=== PATIENT | female | born 1965 | race African-American/Black ===

== ENCOUNTER 2022-02-09 07:44 | Outpatient (REF) | payer OTHER, SELFPAY ==
[2022-02-09 08:19] LABS: COVID-19 Test Negative (Negative)
== END 2022-02-09 07:45 | disposition home or self-care (01) ==
LOC: HO.LAB 07:44
PROVIDERS: Visit Provider Internal Medicine
DX: Z20.822 Contact with and (suspected) exposure to COVID-19 (principal)
CPT/HCPCS: 87635; C9803

== ENCOUNTER 2022-04-06 14:43 | Emergency (ER) | payer OTHER, SELFPAY ==
--- NOTE | ~2022-04-06 | XR_ITS ---
EXAMINATION: XR CHEST CLINICAL INFORMATION: Shortness of breath COMPARISON: None TECHNIQUE: PA view of the chest was obtained. FINDINGS: No significant abnormality is noted involving the heart, lungs, mediastinum, bony thorax or soft tissues. XR/XR chest 1V IMPRESSION: No acute disease.
[2022-04-06 14:46] VITALS: BP 144/79; PULSE 92; RESP 20; TEMP 36.3; O2SAT 96; BMI 45.6
--- OUTSIDE RECORDS SUMMARY | 2022-04-06 14:50 | XMS_ITS | Continuity of Care Document ---
:1965 Author Organization [facility] Adult Address [address] [place] [address]- Care Team Providers Name Role Phone Jf TALBERT, Dylan Leigh Primary Care Physician Encounter [facility] Date(s): 12/29/20 - 03/11/21 [facility] [address] [place] [phone]- Attending Physician: [facility] Allergies, Adverse Reactions, Alerts Substance Reaction Severity Status NKA Active Immunizations Given and Recorded Vaccine Date Status Refusal Reason SARS-CoV-2 (COVID-19) mRNA-1273 vaccine 07/12/20 Recorded SARS-CoV-2 (COVID-19) mRNA-1273 vaccine 06/14/20 Recorded influenza virus vaccine, inactivated 02/07/20 Recorded influenza virus vaccine, inactivated 04/27/19 Recorded influenza virus vaccine, inactivated 06/04/17 Recorded influenza virus vaccine, inactivated 05/19/15 Recorded influenza virus vaccine, inactivated 03/17/14 Recorded influenza virus vaccine, inactivated1 02/03/09 Given pneumococcal 13-valent vaccine 06/04/17 Recorded 1Admin Note: VIS12/13/08 Problem List Condition Effective Dates Status Health Status Informant Central obesity(Confirmed) Active Essential hypertension(Confirmed) Active Uterine leiomyoma(Confirmed)1 Active 1s/p hysterectomy Social History Social History Type Response Tobacco Use: 4 or less cigarettes(le ss than 1/4 pack)/day in last 30 days. Sex
--- OUTSIDE RECORDS SUMMARY | 2022-04-06 14:50 | XMS_ITS | Continuity of Care Document ---
:1965 Author Organization [facility] Adult Address [address] [place] [address]- Care Team Providers Name Role Phone Jf TALBERT, Dylan Leigh Primary Care Physician Encounter [facility] Date(s): 02/09/21 - 03/11/21 [facility] [address] [place] [phone]- Attending Physician: Mary Gomez Admitting Physician: Mary Gomez Referring Physician: Mary Gomez Allergies, Adverse Reactions, Alerts Substance Reaction Severity [...]
--- NOTE | 2022-04-06 14:53 | ED.GENADULT ---
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 She denies any measured fevers, dizziness, neck pain/stiffness, trouble swallowing or breathing, chest pain or shortness of breath, dyspnea on exertion, orthopnea, palpitations, paresthesias, nausea/vomiting/diarrhea constipation, black or bloody stools, abdominal pain, flank pain, dysuria, hematuria, abnormal vaginal discharge, lower extremity edema or calf tenderness, recent travel or any other symptoms complaints or concerns at this time. She does work here therefore she is exposed to multiple different viruses therefore she has been exposed to multiple sick contacts. Although she wears her mask while she is here. <VIPIN Paige - Last Filed: 04/06/22 16:23> complaint: URI symptoms <VIPIN Paige - Last Filed: 04/06/22 16:23> Onset (ago): day(s) (3) <VIPIN Paige Last Filed: 04/06/22 16:23> Related Data Home medications: Previous Rx's Medication Instructions Recorded albuterol sulfate 90 mcg/actuation 1 inh inhalation QID PRN shortness 04/06/22 aerosol inhaler of breath or wheezing #8.5 grams azithromycin 250 mg tablet See Rx Instructions PO .COMPLEX #6 04/06/22 tabs codeine 10 mg-guaifenesin 100 mg/5 5 ml PO Q6H PRN cold symptoms #120 04/06/22 mL oral liquid (Guaifenesin AC) mL doxycycline monohydrate 100 mg 100 mg PO BID 10 days #20 caps 04/06/22 capsule prednisone 20 mg tablet 40 mg PO DAILY 5 days #10 tabs 04/06/22 <Zulma Lewis NP - Last Filed: 04/06/22 14:54> Allergies/adverse reactions: Allergies Allergy/AdvReac Type Severity Reaction Status Date / Time No Known Allergies Allergy Verified 04/06/22 14:45 <Zulma Lewis NP - Last Filed: 04/06/22 14:54> Review of Systems Review of Systems: Constitutional : + subjective fevers/chills/fatigue/malaise/sweats, No Weight loss, ENT/Mouth : + sore throat/nasal congestion/rhinorrhea, No Hearing loss, No Ear Pain, No Sinus Pain, No Hoarseness, No Swallowing Difficulty Eyes: No Eye Pain, No Swelling, No Redness, No Foreign Body, No Discharge, No Vision Changes Cardiovascular : No Chest Pain, No SOB, No Dyspnea on Exertion, No Orthopnea, No Edema, No Palpitations Respiratory : + Cough, + Sputum, No Wheezing, No Smoke Exposure, No Dyspnea Gastrointestinal : No Nausea, No Vomiting, No Diarrhea, No Constipation, No abdominal Pain, No Hematochezia, No Melena Genitourinary : no irregular bleeding, No Dysuria, No Urinary Frequency, No Hematuria, No Urinary Incontinence, No Urgency, No Flank Pain, No Urinary Flow Changes, No Hesitancy Musculoskeletal : No joint pain, + Myalgias, No Joint Swelling Skin : No Skin Lesions, No rash Neuro : No Weakness, No Numbness, No Paresthesias, No Loss of Consciousness, No Dizziness, No Headache Psych : No Anxiety/Panic, No Depression, No SI/HI/AH/VH, No Social Issues, Heme/Lymph: No Bruising, No Bleeding,No Lymphadenopathy Endocrine : No Polyuria, No Polydipsia, No Temperature Intolerance <VIPIN Paige - Last Filed: 04/06/22 16:23> Yes all other systems are reviewed and are negative <VIPIN Paige - Last Filed: 04/06/22 16:23> [facility] Past Medical History Attestation statement: The following information was validated with the patient. <VIPIN Paige - Last Filed: 04/06/22 16:23> Source: old records reviewed and nursing notes reviewed <VIPIN Paige - Last Filed: 04/06/22 16:23> Social History Social History: Social History Advance Directives: No Advance Directives Information Provided: Yes <Zulma Lewis NP - Last Filed: 04/06/22 14:54> Physical Exam ED Vital Signs: Vital Signs - 24 hr 04/06/22 14:46 Temperature 97.3 F Pulse Rate 92 Respiratory Rate 20 Blood Pressure 144/79 H Pulse Oximetry 96 Oxygen Delivery Method Room Air BMI result Body Mass Index 45.6 <Zulma Lewis NP - Last Filed: 04/06/22 14:54> Vital Signs - 24 hr 04/06/22 14:46 Temperature 97.3 F Pulse Rate 92 Respiratory Rate 20 Blood Pressure 144/79 H Pulse Oximetry 96 Oxygen Delivery Method Room Air BMI result Body Mass Index 45.6 vital signs have been reviewed as normal and appeared to be correct. Blood pressure 144/79. Heart rate normal. Respiration rate normal. Temperature normal. Oxygen saturation normal. <VIPIN Paige - Last Filed: 04/06/22 16:23> Appearance: Alert. Oriented X3. No acute distress. Head: Normal external exam. Normocephalic. Atraumatic. Eyes: PERRLA. EOMI. Conjunctiva and sclera normal. Eyelids normal. ENT: EAC normal. TM's Normal. Posterior pharynx mildly erythematous although no exudate is noted. Uvula midline. Moist mucous membranes. No lesions/ulcerations or masses noted on the tongue. Normal voice. No trismus noted. No drooling noted. No muffled voice noted. Neck: Normal inspection. Neck supple. FROM. No adenopathy. Thyroid Normal. No tracheal deviation noted. No crepitus is noted. No meningeal signs. No neck mass noted. No signs of trauma noted. CVS: Normal heart rate and rhythm. Heart sound normal. Pulses normal throughout. No murmurs/rales/gallops. Respiratory: No respiratory distress. Painless inspiration. Breath sounds normal. No wheezes/rales/rhonchi noted. Chest nontender. No crepitus is noted. No signs of trauma noted. No accessory muscle usage noted or decreased air movement noted. No signs of trauma. Back: Full range of motion noted. Skin: Skin warm and dry. Normal skin color. Normal skin turgor. No rashes/lesions/lacerations noted. Extremities: No lower extremity edema. No calf tenderness is noted. Extremities exhibit normal range of motion and nontender. Neuro: Oriented X 3. No motor deficit. No sensory deficit. Normal steady gait. No focal neuro deficits noted. CN's II-XII intact bilaterally? <VIPIN Paige - Last Filed: 04/06/22 16:23> Course Course Course Narrative: This is a rapid medical exam. Deferred additional HPI, ROS, PE to primary provider. 56 yo female here with 2 days of cough, chest discomfort with coughing, diff breathing with recent exposure to family member with bronchitis. Will check CXR, covid/flu/rsv swab. VSS <Zulma Lewis NP - Last Filed: 04/06/22 14:54> Reevaluation(s) Reevaluation #1: Patient negative for COVID/RSV/flu. No additional labs indicated. Chest x-ray negative will DC home with symptomatic treatment antibiotics for possible bronchitis along with instructions return if any new or worsening symptoms to follow up with primary care provider. Patient understands agrees with this plan. <VIPIN Paige - Last Filed: 04/06/22 16:23> Time: 15:44 <VIPIN Paige - Last Filed: 04/06/22 16:23> Medications Administered Discontinued Medications Generic Name Dose Route Start Last Admin Trade Name Freq PRN Reason Stop Dose Admin Albuterol Sulfate 2 puff 04/06/22 15:47 04/06/22 15:56 Albuterol Sulfate 90 Mcg 8 Gm Inhaler INHALE 04/06/22 15:48 2 puff ONCE ONE Administration Benzonatate 100 mg 04/06/22 15:48 04/06/22 15:57 Benzonatate 100 Mg Capsule PO 04/06/22 15:49 100 mg ONCE ONE Administration Prednisone 60 mg 04/06/22 15:47 04/06/22 15:57 Prednisone 20 Mg Tablet PO 04/06/22 15:48 60 mg ONCE ONE Administration <Zulma Lewis NP - Last Filed: 04/06/22 14:54> Medications Administered Discontinued Medications Generic Name Dose Route Start Last Admin Trade Name Elan PRN Reason Stop Dose Admin Albuterol Sulfate 2 puff 04/06/22 15:47 04/06/22 15:56 Albuterol Sulfate 90 Mcg 8 Gm Inhaler INHALE 04/06/22 15:48 2 puff ONCE ONE Administration Benzonatate 100 mg 04/06/22 15:48 04/06/22 15:57 Benzonatate 100 Mg Capsule PO 04/06/22 15:49 100 mg ONCE ONE Administration Prednisone 60 mg 04/06/22 15:47 04/06/22 15:57 Prednisone 20 Mg Tablet PO 04/06/22 15:48 60 mg ONCE ONE Administration <VIPIN Paige - Last Filed: 04/06/22 16:23> Medical Decision Making Medical Records Medical records reviewed: Yes I reviewed the patient's medical records. <VIPIN Paige - Last Filed: 04/06/22 16:23> Lab Data Lab results reviewed: Yes I reviewed the patient's lab results. <VIPIN Paige - Last Filed: 04/06/22 16:23> Labs: Lab Results 04/06/22 Range/Units 14:53 Influenza Type A (PCR) NEGATIVE (Negative) Influenza Type B (PCR) NEGATIVE (Negative) RSV RNA Qual (PCR) NEGATIVE (Negative) SARS-CoV-2 RNA (RT-PCR) NEGATIVE (Negative) <Zulma Lewis NP - Last Filed: 04/06/22 14:54> Lab Results 04/06/22 Range/Units 14:53 Influenza Type A (PCR) NEGATIVE (Negative) Influenza Type B (PCR) NEGATIVE (Negative) RSV RNA Qual (PCR) NEGATIVE (Negative) SARS-CoV-2 RNA (RT-PCR) NEGATIVE (Negative) <VIPIN Paige - Last Filed: 04/06/22 16:23> Imaging Data Chest x-ray: Attestation: I personally reviewed and interpreted this imaging study as follows: <VIPIN Paige Last Filed: 04/06/22 16:23> Radiologist's impression: FINDINGS: No significant abnormality is noted involving the heart, lungs, mediastinum, bony thorax or soft tissues. XR/XR chest 1V IMPRESSION: No acute disease. <VIPIN Paige - Last Filed: 04/06/22 16:23> Discharge Plan Discharge Clinical Impression: Bronchitis <Zulma Lewis NP - Last Filed: 04/06/22 14:54> Patient Disposition: Home, Self-Care <Zulma Lewis NP - Last Filed: 04/06/22 14:54> Instructions: Acute Bronchitis (ED) <Zulma Lewis NP - Last Filed: 04/06/22 14:54> Prescriptions: New azithromycin 250 mg tablet See Rx Instructions .ROUTE .COMPLEX Qty: 6 0RF Rx Instructions: take 500 mg today (day 1), then 250 mg for 4 days (days 2-5) doxycycline monohydrate 100 mg capsule 100 mg PO BID 10 Days Qty: 20 0RF codeine-guaifenesin [Guaifenesin AC] 10-100 mg/5 mL liquid 5 ml PO Q6H PRN (Reason: cold symptoms) Qty: 120 0RF albuterol sulfate 90 mcg/actuation HFA aerosol inhaler 1 inh inhalation QID PRN (Reason: shortness of breath or wheezing) Qty: 8.5 0RF prednisone 20 mg tablet 40 mg PO DAILY 5 Days Qty: 10 0RF <Zulma Lewis NP - Last Filed: 04/06/22 14:54> Referrals: Physician,Unknown J [Primary Care Provider] - 3 days (your pcp) <Zulma Lewis NP - Last Filed: 04/06/22 14:54> Stand Alone Forms: Work/School Release <Zulma Lewis NP - Last Filed: 04/06/22 14:54> Interventions: ED Discharge Assessment Last Done: 04/06/22 16:04 <Zulma Lewis NP - Last Filed: 04/06/22 14:54> Discharge Date/Time: 04/06/22 16:04 <Zulma Lewis NP - Last Filed: 04/06/22 14:54>
[2022-04-06 15:33] LABS: Influenza A PCR NEGATIVE (Negative); Influenza B PCR NEGATIVE (Negative); Resp Syncy Virus RNA Qual PCR NEGATIVE (Negative); SARS COV2 PCR INHOUSE NEGATIVE (Negative)
[2022-04-06] MEDS: Albuterol Sulfate 90 MCG 8 GM INHALER 2 PUFF INHALE (15:56)
[2022-04-06] MEDS: Benzonatate 100 MG CAPSULE PO (15:57)
[2022-04-06] MEDS: predniSONE 20 MG TABLET 60 MG PO (15:57)
== END 2022-04-06 16:04 | disposition home or self-care (01) ==
PROVIDERS: Emergency Provider Emergency Medicine
DX: J40 Bronchitis, not specified as acute or chronic (principal); Z20.822 Contact with and (suspected) exposure to COVID-19
CPT/HCPCS: 0241U; 71045; 99282; 99283

== ENCOUNTER → 2022-04-18 11:55 | Outpatient (BNVA) | payer OTHER, SELFPAY | PROVIDERS: Visit Provider Internal Medicine | DX: Z13.89 Encounter for screening for other disorder (principal) | CPT/HCPCS: 99203 ==

== ENCOUNTER 2022-06-05 09:41 | Outpatient (REF) | payer OTHER, SELFPAY ==
--- NOTE | ~2022-06-05 | MM_ITS ---
EXAMINATION: MM SCREENING DIGITAL BREAST TOMOSYNTHESIS, BILATERAL CLINICAL INFORMATION: Screening. Asymptomatic. History of breast reduction surgery. The lifetime risk of breast cancer based on the Tyrer-Cuzick Model is 9.3%. COMPARISON: Mammography: 07/12/2013 and 04/13/2011. TECHNIQUE: Digital breast tomosynthesis is performed in both the craniocaudal and mediolateral oblique views along with computer-aided detection (CAD). Synthesized 2D images are generated from the tomosynthesis. FINDINGS: The breasts are almost entirely fatty (ACR BI-RADS breast composition Category a). Patient is status post bilateral reduction mammoplasty with associated postsurgical change. There is multiplicity and bilaterality of skin calcifications. No new abnormal dominant mass or suspicious grouping of microcalcifications identified. MM/MM tomosynthesis screening BI IMPRESSION: No mammographic evidence of malignancy. ASSESSMENT: BI-RADS 2: Benign. RECOMMENDATION: Routine annual mammography screening. This patient's information was entered into a reminder system with a target due date for their next mammogram.
[2022-06-05 09:51] LABS: MANUAL DIFF FLAG NO
[2022-06-05 10:02] LABS: Basophils Percent Auto 0.3 % (0-2); Eosinophils Absolute Auto 0.2 X10*3/uL (0.0-0.4); Eosinophils Percent Auto 2.4 % (0-4); Hematocrit 40.3 % (37.0-47.0); Hemoglobin 12.9 g/dl (12.0-16.0); Imm Gran Abs Auto 0.02 X10*3/uL (0.00-0.03); Imm Gran Pct Auto 0.2 % (0.0-0.4); Lymphocytes Absolute Auto 2.8 X10*3/uL (1.2-4.9); Lymphocytes Percent Auto 31.7 % (20-40); Mean Corpuscular Hemoglobin 29.9 pg (27.0-33.0); Mean Corpuscular Volume 93.3 fL (80.0-98.0); Mean Platelet Volume 9.4 fL (9.4-12.3); Monocytes Absolute Auto 0.5 X10*3/uL (0.1-1.2); Monocytes Percent Auto 5.2 % (2-11); Neutrophils Absolute Auto 5.3 x10*3/uL (2.0-8.3); Neutrophils Percent Auto 60.2 % (45-73); Platelet Count 259 X10*3/uL (160-400); Red Blood Count 4.32 X10*6/uL (4.20-5.50); Red Cell Distribution Width 13.4 % (11.0-16.0); White Blood Count 8.8 X10*3/uL (4.8-10.8)
[2022-06-05 10:38] LABS: Alanine Aminotransferase 17 U/L (0-31); Albumin Level 4.4 g/dL (3.5-5.0); Alkaline Phosphatase 59 U/L (39-117); Anion Gap 12 (12-20); Aspartate Amino Transferase 16 U/L (5-31); Bilirubin Total 0.7 mg/dL (0.0-1.0); Blood Urea Nitrogen 21 mg/dL (9-16); Calcium 9.4 mg/dL (8.4-10.2); Carbon Dioxide 27 mmol/L (22-29); Chloride 107 mmol/L (96-108); Cholesterol 209 mg/dL; Estimated Glomerular Filt Rate > 60; Glucose Fasting 146 mg/dL (60-99); HDL Cholesterol 46 mg/dL; LDL Cholesterol Calculated 148 mg/dl; Sodium 142 mmol/L (135-145); Total Protein 7.2 g/dL (6.5-8.0); Triglycerides 79 mg/dL
[2022-06-05 10:45] LABS: ~Hepatitis C Antibody Nonreactive (Nonreactive)
[2022-06-05 10:55] LABS: Thyroid Stimulating Hormone 0.75 uIU/mL (0.32-4.0)
[2022-06-12 15:28] LABS: Hepatitis C Genotype Not Detected
== END 2022-06-05 09:42 | disposition home or self-care (01) ==
LOC: HO.MAMMO 09:41
PROVIDERS: PCP Internal Medicine; Visit Provider Internal Medicine
DX: E66.01 Morbid (severe) obesity due to excess calories (principal); I10 Essential (primary) hypertension; B19.20 Unspecified viral hepatitis C without hepatic coma; Z68.41 Body mass index [BMI] 40.0-44.9, adult; Z12.31 Encounter for screening mammogram for malignant neoplasm of breast
CPT/HCPCS: 36415; 77063; 77067; 80053; 80061; 84443; 85025; 86803; 87902

== ENCOUNTER 2022-07-26 15:54 | Outpatient (REF) | payer OTHER, SELFPAY ==
[2022-07-26 18:06] LABS: Estimated Average Glucose 154 mg/dL
[2022-07-26 18:34] LABS: Cholesterol 203 mg/dL; HDL Cholesterol 50 mg/dL; LDL Cholesterol Calculated 128 mg/dl; Rheumatoid Factor < 13.0 IU/mL (<15.0); Triglycerides 126 mg/dL
[2022-07-27 16:45] LABS: CT PCR NOT DETECTED (Not Detect.); NG PCR NOT DETECTED (Not Detect.)
[2022-07-29 03:48] LABS: Syphilis Screen Nonreactive (Nonreactive)
[2022-07-29 04:11] LABS: HBS Num1 28.31 mIU/mL (0-7.99); HBc Num1 0.08 S/CO (0.00-0.79); HBsAGNum1 0.35 S/CO (0.00-0.99); HIV AB/AG Nonreactive (Nonreactive); HIV Num 1 0.08 S/CO (0.00-0.99); Hepatitis B Core Antibody Nonreactive (Nonreactive); Hepatitis B Surface Antigen Negative (Negative); ~HepC Num1 0.11 S/CO (0.00-0.79); ~Hepatitis B Surface Antibody REACTIVE (Nonreactive); ~Hepatitis C Antibody Nonreactive (Nonreactive)
[2022-07-30 13:44] LABS: Anti Nuclear Antibody Pattern Nuclear, Speckled; Anti Nuclear Antibody Screen POSITIVE (NEGATIVE)
[2022-07-31 21:14] LABS: HSV 1 IgM IFA Negative (Negative); HSV 2 IgM IFA Negative (Negative)
== END 2022-07-26 15:55 | disposition home or self-care (01) ==
LOC: HO.LAB 15:54
PROVIDERS: PCP Internal Medicine; Visit Provider Nurse Practitioner Family
DX: Z11.4 Encounter for screening for human immunodeficiency virus [HIV] (principal); M79.644 Pain in right finger(s); M79.645 Pain in left finger(s); R73.01 Impaired fasting glucose; E78.5 Hyperlipidemia, unspecified; Z20.2 Contact with and (suspected) exposure to infections with a predominantly sexual mode of transmission
CPT/HCPCS: 0353U; 80061; 83036; 86038; 86039; 86431; 86695; 86696; 86704; 86706; 86780; 86803; 87340; 87389

== ENCOUNTER → 2022-07-31 15:50 | Outpatient (BNVA) | payer OTHER, SELFPAY | PROVIDERS: PCP Internal Medicine; Visit Provider Nurse Practitioner Family | DX: Z13.89 Encounter for screening for other disorder (principal) ==

== ENCOUNTER 2022-08-04 18:05 | Emergency (ER) | payer OTHER, SELFPAY ==
[2022-08-04 18:10] VITALS: BP 158/78; PULSE 98; RESP 18; TEMP 36.9; O2SAT 97; BMI 44.4
--- NOTE | 2022-08-04 18:17 | ED_ITS ---
HPI - SOB/Dyspnea General Chief Complaint: Dyspnea <VIPIN Galvan - Last Filed: 08/04/22 18:18> Stated Complaint: shortness of breath, covid swab <VIPIN Galvan - Last Filed: 08/04/22 18:18> Time Seen by Provider: 08/04/22 19:32 <VIPIN Galvan - Last Filed: 08/04/22 18:18> Source: patient <Kyleigh Barbosa NP - Last Filed: 08/05/22 00:17> Mode of arrival: ambulatory <Kyleigh Barbosa NP - Last Filed: 08/05/22 00:17> Limitations: no limitations <Kyleigh Barbosa NP - Last Filed: 08/05/22 00:17> History of Present Illness HPI Narrative: 57-year-old female presents for worsening shortness of breath, body aches, and cough. Was treated with prednisone however did not start taking it until 2 days ago. <Kyleigh Barbosa NP - Last Filed: 08/05/22 00:17> MD elicited complaint: shortness of breath and cough <Kyleigh Barbosa NP - Last Filed: 08/05/22 00:17> Pertinent past history: asthma <Kyleigh Barbosa NP - Last Filed: 08/05/22 00:17> Onset (ago): week(s) (1) <Kyleigh Barbosa NP - Last Filed: 08/05/22 00:17> Context: recent illness <Kyleigh Barbosa NP - Last Filed: 08/05/22 00:17> Timing: progressively worsening <Kyleigh Barbosa NP - Last Filed: 08/05/22 00:17> Severity: moderate <Kyleigh Barbosa NP - Last Filed: 08/05/22 00:17> Exacerbating factors: exertion, coughing and talking <Kyleigh Barbosa NP - Last Filed: 08/05/22 00:17> Relieving factors: bronchodilators <Kyleigh Barbosa NP - Last Filed: 08/05/22 00:17> Known history of: asthma <Kyleigh Barbosa NP - Last Filed: 08/05/22 00:17> Associated symptoms: cough, wheezing and lower extremity pain <ANEUDY Medina Last Filed: 08/05/22 00:17> Treatment prior to arrival: bronchodilator and other (Prednisone) <ANEUDY Medina Last Filed: 08/05/22 00:17> Related Data Home oxygen amount: none <ANEUDY Medina Last Filed: 08/05/22 00:17> Home Medications: Previous Rx's Medication Instructions Recorded albuterol sulfate 90 mcg/actuation 1 inh inhalation QID PRN shortness 04/06/22 aerosol inhaler of breath or wheezing #8.5 grams hydrochlorothiazide 12.5 mg tablet 12.5 mg PO DAILY 90 days #90 tabs 07/02/22 prednisone 20 mg tablet 40 mg PO DAILY 5 days #10 tabs 07/26/22 bisacodyl 5 mg tablet,delayed 10 mg PO ONCE 1 day #2 tabs 07/31/22 release (Dulcolax (bisacodyl)) polyethylene glycol 3350 17 238 g PO ONCE #238 grams 07/31/22 gram/dose oral powder (Miralax) benzonatate 100 mg capsule 100 mg PO TID PRN cough #30 caps 08/04/22 <VIPIN Galvan Last Filed: 08/04/22 18:18> Allergies/Adverse Reactions: Allergies Allergy/AdvReac Type Severity Reaction Status Date / Time lisinopril AdvReac Intermediate Cough Uncoded 07/31/22 15:55 <VIPIN Galvan Last Filed: 08/04/22 18:18> Review of Systems Review of Systems: Constitutional: No Fever, No Chills, positive myalgias ENT/Mouth: No Ear Pain, positive Hoarseness, positive sore throat Eyes: No Eye Pain, No Swelling, No Redness, No Foreign Body Cardiovascular: No Chest Pain, positive SOB on exertion and while coughing Respiratory: Positive Cough, positive wheezing, No Dyspnea Gastrointestinal: No Nausea, No Vomiting, No Diarrhea, No abdominal Pain Genitourinary: No Dysuria, No Hematuria Musculoskeletal: No joint pain, positive Myalgias, No Joint Swelling Skin: No Skin lacerations, No rash Neuro: No Weakness, No Numbness, No Paresthesias, No Dizziness, No Headache <Kyleigh Barbosa NP - Last Filed: 08/05/22 00:17> Yes all other systems are reviewed and are negative <Kyleigh Barbosa NP - Last Filed: 08/05/22 00:17> PMFSH Past Medical History Attestation statement: The following information was validated with the patient. <Kyleigh Barbosa NP - Last Filed: 08/05/22 00:17> Source: old records reviewed <Kyleigh Barbosa NP - Last Filed: 08/05/22 00:17> Medical History: Medical History Family history of colorectal cancer Family history of gastric cancer Hepatitis C <VIPIN Galvan - Last Filed: 08/04/22 18:18> Surgical History: Surgical History History of History of carpal tunnel surgery History of clubfoot correction Status post breast reduction Status post hysterectomy <VIPIN Galvan - Last Filed: 08/04/22 18:18> Family History Family History: Family History Mother Diabetes CHF (congestive heart failure) Stroke Father Colon cancer Stroke Family/Other Substance use disorder Cancer <VIPIN Galvan - Last Filed: 08/04/22 18:18> Social History Social History: Social History Housing: House Alcohol intake: current Alcohol intake frequency: holidays/special occasions only Alcohol type: beer Patient Tobacco Use Status: Former Tobacco user Tobacco use type: Cigarette e-Cigarette/Vaping Use: Never Used Second Hand Smoke Exposure: No Advance Directives: No Advance Directives Information Provided: No service: No Current occupational status: employed Current occupational exposures/hazards: No Cognitive needs: No Hearing needs: No Vision needs: Yes <VIPIN Galvan - Last Filed: 08/04/22 18:18> Physical Exam Vital Signs: Vital Signs: Last Vital Signs Temp 98.5 F 08/04/22 18:10 Pulse 98 08/04/22 18:10 Resp 18 08/04/22 18:10 BP 158/78 H 08/04/22 18:10 Pulse Ox 97 08/04/22 18:10 O2 Del Method Room Air 08/04/22 18:10 BMI result Body Mass Index 44.4 <VIPIN Galvan - Last Filed: 08/04/22 18:18> Vital Signs: Last Vital Signs Temp 98.5 F 08/04/22 18:10 Pulse 98 08/04/22 18:10 Resp 18 08/04/22 18:10 BP 158/78 H 08/04/22 18:10 Pulse Ox 97 08/04/22 18:10 O2 Del Method Room Air 08/04/22 18:10 BMI result Body Mass Index 44.4 <Kyleigh Barbosa NP - Last Filed: 08/05/22 00:17> Appearance: Alert. Oriented X3. No acute distress. Eyes: Pupils equal, round and reactive to light. ENT: Pharynx normal. Hoarse voice noted. Neck: Normal inspection. Neck supple. No vertebral tenderness or step-offs. No nuchal rigidity. No mastoid tenderness. CVS: Normal heart rate and rhythm. Pulses normal. Respiratory: No respiratory distress. Lung sounds clear to auscultation all lobes. Skin: Skin warm and dry. Normal skin color. Normal skin turgor. Extremities: No lower extremity edema. Gait well balanced well coordinated Neuro: No motor deficit. No sensory deficit. Cranial nerves 2-12 intact. <Kyleigh Barbosa NP - Last Filed: 08/05/22 00:17> Course Course Course Narrative: This is an RME: Additional HPI, ROS, PE not included below will be deferred to primary provider. 57-year-old female presents with malaise, fatigue, body aches and pains, shortness of breath, hoarse voice times few weeks she reports she was COVID positive about a month ago and her PCP thinks this may be post COVID syndrome, PCP prescribed prednisone on the however patient just filled yesterday and started it. Reports worsening symptoms. Physical exam benign. Vital stable. Plan viral testing <VIPIN Galvan - Last Filed: 08/04/22 18:18> This is an RME: Additional HPI, ROS, PE not included below will be deferred to primary provider. 57-year-old female presents with malaise, fatigue, body aches and pains, shortness of breath, hoarse voice times few weeks she reports she was COVID positive about a month ago and her PCP thinks this may be post COVID syndrome, PCP prescribed prednisone on the however patient just filled yesterday and started it. Reports worsening symptoms. Physical exam benign. Vital stable. Plan viral testing 19:30 viral testing is negative. Patient did state that she started taking her prednisone yesterday was this script about a week ago. At that time, patient did not feel ill enough to take the medication however today her symptoms have worsened. She is able to speak in complete sentences, able to manage secretions, and does have a hoarse voice but appears nontoxic, afebrile, with elevated blood pressure and heart rate. Patient does have a history of hypertension, also has taken prednisone as well as albuterol inhalers. Considering patient's upper respiratory viral syndrome as well as albuterol use, this could be the reason her heart rate is 98. Do not feel that this patient has any indication for PE, as patient does not have the chest pain on inspiration, is not hypoxic, and does not have a heart rate over 100. Plan of care is to continue supportive measures, have patient follow-up with primary and work connection this week, will give Tessalon Perles, and a work note. Considering patient has concerns regarding long haul COVID symptoms, as well as asthma, I do agree with patient's request of possible pulmonary rehab. I will refer to civil engineering drafter Dr. Dejesus. patient verbalized understanding of and agrees to plan of care discharge home. Verbalized understanding of signs and symptoms indicating need for emergent intervention. <Kyleigh Barbosa NP - Last Filed: 08/05/22 00:17> Medical Decision Making Differential Diagnosis Differential Diagnoses: The differential diagnosis associated with the presentation includes <Kyleigh Barbosa NP - Last Filed: 08/05/22 00:17> URI, COVID, influenza, RSV, pneumonia <Kyleigh Barbosa NP - Last Filed: 08/05/22 00:17> Lab Data MDM Lab Attestation statement: I reviewed the patient's lab results. <Kyleigh Barbosa NP - Last Filed: 08/05/22 00:17> Labs: Lab Results 08/04/22 Range/Units 18:17 Influenza Type A (PCR) NEGATIVE (Negative) Influenza Type B (PCR) NEGATIVE (Negative) RSV RNA Qual (PCR) NEGATIVE (Negative) SARS-CoV-2 RNA (RT-PCR) NEGATIVE (Negative) <VIPIN Galvan - Last Filed: 08/04/22 18:18> Lab Results 08/04/22 Range/Units 18:17 Influenza Type A (PCR) NEGATIVE (Negative) Influenza Type B (PCR) NEGATIVE (Negative) RSV RNA Qual (PCR) NEGATIVE (Negative) SARS-CoV-2 RNA (RT-PCR) NEGATIVE (Negative) <Kyleigh Barbosa NP - Last Filed: 08/05/22 00:17> External Record Review External record reviewed: Outpatient record and Prior outpatient labs <Kyleigh Barbosa NP - Last Filed: 08/05/22 00:17> Chronic Conditions Patient?s care impacted by: Hypertension <Kyleigh Barbosa NP - Last Filed: 08/05/22 00:17> Discharge Plan Discharge Clinical Impression: URI (upper respiratory infection) <VIPIN Galvan - Last Filed: 08/04/22 18:18> Patient Disposition: Home, Self-Care <VIPIN Galvan - Last Filed: 08/04/22 18:18> Instructions: Viral Syndrome (ED) <VIPIN Galvan - Last Filed: 08/04/22 18:18> Additional Instructions: You were evaluated for upper respiratory symptoms. Continue to take her prednisone as directed. Use albuterol inhaler 2-4 puffs every 4-6 hours as needed during this upper respiratory symptom. If your symptoms worsen, and you require albuterol sooner than every 4 hours, please present to the emergency department for evaluation. Take Tessalon Perles every 8 hours as needed for cough. Drink plenty of fluids. You may consider following up with pulmonology. I have referred you to Dr. Dejesus. Please call and request an appointment for evaluation for asthma as well as symptoms a long-haul COVID. Alternate Tylenol 650 mg every 6 hours and Motrin 600 mg every 6 hours as needed for pain and fever management. Consider taking these medications 3 hours apart so you have pain and fever management every 3 hours. Write down what time you take these medications to prevent accidental overdose. Motrin is the same medication as Advil and ibuprofen. Tylenol is the same medication as acetaminophen. Thank you for choosing this emergency department for evaluation. Please follow-up with primary care physician as needed. Return to the emergency department for any new, concerning, or worsening symptoms. <VIPIN Galvan - Last Filed: 08/04/22 18:18> Prescriptions: New benzonatate 100 mg capsule 100 mg PO TID PRN (Reason: cough) Qty: 30 0RF No Action hydrochlorothiazide 12.5 mg tablet 12.5 mg PO DAILY 90 Days Qty: 90 1RF albuterol sulfate 90 mcg/actuation HFA aerosol inhaler 1 inh inhalation QID PRN (Reason: shortness of breath or wheezing) Qty: 8.5 0RF prednisone 20 mg tablet 40 mg PO DAILY 5 Days Qty: 10 0RF bisacodyl [Dulcolax (bisacodyl)] 5 mg tablet,delayed release (DR/EC) 10 mg PO ONCE 1 Days Qty: 2 0RF Rx Instructions: take 2 tabs at noon the day before your colonoscopy polyethylene glycol 3350 [Miralax] 17 gram/dose powder 238 g PO ONCE Qty: 238 0RF Rx Instructions: As directed by gastroenterology department at [facility] <VIPIN Galvan - Last Filed: 08/04/22 18:18> Referrals: Ernie Dejesus MD [Physician] - 2 weeks (Asthma, long haul COVID symptoms) <VIPIN Galvan - Last Filed: 08/04/22 18:18> Stand Alone Forms: Work/School Release <VIPIN Galvan - Last Filed: 08/04/22 18:18> Interventions: ED Discharge Assessment Last Done: 08/04/22 20:33 <VIPIN Galvan - Last Filed: 08/04/22 18:18> Discharge Date/Time: 08/04/22 20:38 <VIPIN Galvan Last Filed: 08/04/22 18:18>
[2022-08-04 19:01] LABS: Influenza A PCR NEGATIVE (Negative); Influenza B PCR NEGATIVE (Negative); Resp Syncy Virus RNA Qual PCR NEGATIVE (Negative); SARS COV2 PCR INHOUSE NEGATIVE (Negative)
== END 2022-08-04 20:38 | disposition home or self-care (01) ==
PROVIDERS: Emergency Provider Emergency Medicine Emergency Medical Services; PCP Internal Medicine
DX: J06.9 Acute upper respiratory infection, unspecified (principal); R06.02 Shortness of breath; R05.9 Cough, unspecified; Z20.822 Contact with and (suspected) exposure to COVID-19; Z20.828 Contact with and (suspected) exposure to other viral communicable diseases
CPT/HCPCS: 0241U; 99283

== ENCOUNTER 2022-08-21 13:37 | Outpatient (REF) | payer OTHER, SELFPAY ==
--- NOTE | ~2022-08-21 | XR_ITS ---
EXAMINATION: Bilateral hand x-ray CLINICAL INFORMATION: Pain COMPARISON: None. TECHNIQUE: 3 views of each hand FINDINGS: Right: Bone alignment is normal. No fracture or dislocation. Normal joint spaces. Normal soft tissues. Left: Bone alignment is normal. No fracture or dislocation. 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 Joint spaces are otherwise normal. Soft tissues are normal. XR/XR hand RT 2V IMPRESSION: Right: Unremarkable exam Left: Osteoarthritis at the DIP joints.
--- NOTE | ~2022-08-21 | XR_ITS ---
EXAMINATION: XR CHEST CLINICAL INFORMATION: Cough COMPARISON: Previous chest x-ray April 2022 TECHNIQUE: 2 views of the chest were obtained. FINDINGS: The cardiac and mediastinal contours are normal. The lungs are clear. No pleural effusion or pneumothorax. Degenerative changes of the spine. XR/XR chest 2V IMPRESSION: No evidence for acute disease in the chest.
--- NOTE | ~2022-08-21 | XR_ITS ---
EXAMINATION: Bilateral hand x-ray CLINICAL INFORMATION: Pain COMPARISON: None. TECHNIQUE: 3 views of each hand FINDINGS: Right: Bone alignment is normal. No fracture or dislocation. Normal joint spaces. Normal soft tissues. Left: Bone alignment is normal. No fracture or dislocation. 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 Joint spaces are otherwise normal. Soft tissues are normal. XR/XR hand LT 2V IMPRESSION: Right: Unremarkable exam Left: Osteoarthritis at the DIP joints.
--- NOTE | ~2022-08-21 | XR_ITS ---
EXAMINATION: XR LUMBOSACRAL SPINE CLINICAL INFORMATION: Low back pain COMPARISON: None available. TECHNIQUE: Three views of the lumbosacral spine. FINDINGS: There is mild 4 mm anterior subluxation of L4 forward respect L5. Bone alignment is otherwise normal. No fracture or dislocation. Disc spaces are normal. There is lower lumbar spine facet arthritis. XR/XR lumbar spine 2-3V IMPRESSION: Mild anterior subluxation of L4 with respect L5 and lower lumbar spine facet arthritis.
== END 2022-08-21 13:38 | disposition home or self-care (01) ==
LOC: HO.XRAY 13:37
PROVIDERS: PCP Internal Medicine; Visit Provider Internal Medicine
DX: M54.50 Low back pain, unspecified (principal); R05.9 Cough, unspecified; M79.642 Pain in left hand; M79.641 Pain in right hand
CPT/HCPCS: 71046; 72100; 73120

== ENCOUNTER → 2022-08-21 15:03 | Outpatient (BNVA) | payer OTHER, SELFPAY | PROVIDERS: PCP Internal Medicine; Visit Provider Physician Assistant Medical | DX: Z13.89 Encounter for screening for other disorder (principal) | CPT/HCPCS: 99203 ==

== ENCOUNTER → 2022-10-07 14:37 | Outpatient (BNVA) | payer OTHER, SELFPAY | PROVIDERS: PCP Internal Medicine; Visit Provider Hospitalist ==

== ENCOUNTER → 2022-11-01 13:04 | Outpatient (BNVA) | payer OTHER, SELFPAY | PROVIDERS: PCP Internal Medicine; Visit Provider Physician Assistant Surgical ==

== ENCOUNTER 2022-12-03 15:37 | Outpatient (AMB) | payer OTHER, SELFPAY ==
--- NOTE | 2022-12-03 15:40 | MHC.OFFVISWM ---
Intake VS Expanded 12/03/22 15:45 Height 5 ft 5 in Weight 269 lb 3.2 oz BMI 44.8 BP 138/69 Blood Pressure Location Rt brachial Blood Pressure Position Sitting Pulse 98 Pulse Source Pulse Oximeter Temp 98.7 F Temperature Source Temporal Artery Scan Pulse Oximetry 97 Oxygen Delivery Method Room Air Body Fat 110.2 Body Fat Percentage 41.0 Free Fat Mass 159.0 Muscle Mass 151.0 Visceral Mass 14.0 Water Mass 113.0 BMR 2,207 Intake Visit Reasons: (OV) [employer] SWL BMI 44.2 Upper Extremity Surgeon Required: No Allergies lisinopril Adverse Reaction (Intermediate, Uncoded 10/07/22 14:58) Cough Medication List - Last Reconciled 12/03/22 by VIPIN Hinkle albuterol sulfate 90 mcg/actuation 1 inh inhalation QID PRN blood sugar diagnostic (FreeStyle Lite Strips) Use 1 test strip once a day blood-glucose meter (FreeStyle Lite Meter kit) As directed hydrochlorothiazide 25 mg PO DAILY 90 days lancets (FreeStyle Lancets) Use 1 lancet once a day HPI HPI Comments History of Present Illness Details Pt is here to start the [facility] [place] [facility] [place]. She heard about our program as she works at [facility] [place] Her goal is to lose weight and achieve a healthy lifestyle as well as to improve, if not resolve, obesity related medical conditions, including DM, HTN, HLD. She reports first being concerned about her weight 24 years ago, highest weight to date was 269. Current weight is 269.2 pounds with a BMI of 44.8. She has tried multiple methods of weight loss including fad diets without permanent results. She lives with her daughter. 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 She states she has been living with her daughter in her daughter's apartment but that is being renovated and they are both in a local hotel at this time. She states she is able to not only participate in the SWL program but excel. She wakes at:?530 am, and goes to bed at?10 pm. Dinner is at 7 pm. 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 Surgical History History of bilateral breast reduction surgery History of History of carpal tunnel surgery History of clubfoot correction History of hysterectomy Family History Mother Diabetes CHF (congestive heart failure) Stroke Father Colon cancer Stroke Family/Other Substance use disorder Cancer Social History Household Members: Children Housing: House Alcohol intake: current Alcohol intake frequency: holidays/special occasions only Alcohol type: beer Patient Tobacco Use Status: Former Tobacco user Tobacco use type: Cigarette e-Cigarette/Vaping Use: Never Used Second Hand Smoke Exposure: No service: No Current occupational status: employed Current occupational exposures/hazards: No Cognitive needs: No Hearing needs: No Vision needs: Yes Review of Systems Const All systems reviewed & are unremarkable except as noted in HPI and below Physical Exam Vital Signs: Last Vital Signs Temp 98.7 F 12/03/22 15:45 Pulse 98 12/03/22 15:45 BP 138/69 12/03/22 15:45 Pulse Ox 97 12/03/22 15:45 Oxygen Delivery Method Room Air 12/03/22 15:45 BMI result Body Mass Index 44.8 Const General: cooperative, healthy appearing and no acute distress Orientation/consciousness: patient oriented x3 HEENT Head: Yes normal to inspection Ears: hearing grossly normal bilaterally General nose exam: Normal external nose present Face and sinus: Yes normal facial exam Eyes General: appearance normal, both eyes and all related structures Resp Effort & Inspection: normal respiratory effort Cardio Rate: regular rate Rhythm: regular rhythm GI Inspection: Yes normal to inspection, No distended and Yes obesity Skin General skin exam: no rashes or lesions noted Neuro General: patient oriented x3 Extrem General: No edema Psych Appearance: grossly normal Mental Status: mental status grossly normal Speech and movement: Normal speech and movement present Affect: normal affect Attitude: cooperative Assessment & Plan Assessment & Plan (1) Morbid obesity: Code(s): E66.01 - Morbid (severe) obesity due to excess calories Plan: This is a?57 yo female who will start our SWL program to prepare for bariatric surgery.? Blood work, h pylori , CXR, ECG, Abd US and UGI have been ordered. She is being scheduled for RD and BH initial consultations. She will start SWL classes and watch the first three videos before her next appointment. ? Adequate sleep of 7-8 hours per night discussedawakening at 530 am and going to bed at 10 pm ? Purchase body composition analyzer scale (David cohn or Daxa recommended) and check weight weekly. The best time to do this is first thing in the morning after going to the bathroom. 1. Nutritional counseling: Be sure to careful read the number of scoops per shake Start with 1 Premier Protein shake ([employer], [employer], [facility]), (1 scoop in 8 oz low fat unsweetened almond milk or water) at 630am-830am 1 protein bar (Fulfil bars at [employer], [facility], or [employer]) at 1030am-1230pm. Another Protein bar at 130 pm-330 pm Malay yogurt at 430 pm-530 pm Dinner at 7pm (9 forks of protein and 9 forks of salad/vegetables). Meal to include lean meat (beef, fish, pork, turkey, chicken), cooked vegetables or a salad with olive oil and/or fruits (berries, pears, apples, kiwi). Avoid salt, breads, potatoes, rice, pasta, desserts. Another shake with 1 scoop in 8 oz unsweetened almond milk at 8pm-10pm. Try to drink 64 oz of water daily and avoid soda and juices. ?2. Each shake would be drunk slowly, like coffee in a period of 2 hours. ?3. Cut each bar in 4 pieces and eat each piece in 30 min ?to make each bar last 2 hours. ?4. I emphasized the importance of measuring accurately the food portion and measure it carefully when serving the food on the plate ?5. The meal portions include 9 full-size forks of meat and 9 full-size forks of salad. You always eat the meat portion but you can replace up to half of the forks of salad/vegetables with rice, potatoes or pasta, or a fruit ?if you like. The less you do it the better weight loss will be. ?6. One full-size fork is what can be scooped on the fork without falling aside and not what can be bit with the fork. Use regular forks like those you find in a typical restaurant. ?7.? Please send me weight measurements as soon as possible and then once a week. Always include your diet and exercise plan. Alternatively come weekly at the office for weight checks and send me the measurements. ?8. Exercise counseling: Begin by watching a stretching for beginners video. Start slowly and begin to stretch your muscles. You should do this before and after each exercise session to prevent injury. Please join [facility] gym near your home. Ask the build and release manager or one of the trainers how to use the machines if you are unfamiliar with them. Start elliptical with a resistance of 2. Increase resistance by 1 every 3 min to your most comfortable resistance with a max resistance of 8. Reduce the resistance by 1 every 3 minutes back down to 2 and repeat cycles for 300 calories. Alternatively, start treadmill with a speed of 3.0 and incline of 0, increasing incline by 1 every 3 minutes to the highest comfortable level (max 6 for now) then decrease in the same fashion. Repeat process to a goal of 300 calories. Goal of 2000 calories burned or more weekly. You may also consider use of the stationary bike. The easiest would be to chose the fat-burn or interval training program on the machine and do this until you reach the 300 calorie goal. Alternatively, you can manually adjust the resistance in a similar fashion as mentioned above, (resistance of 2-8 with a goal speed of 12 mph). Tracking calories is essential. 9. Alternatively start walking outside daily, tracking calories with a goal of 300 calories per day, daily. You can download the len [employer] which can track your time, distance and calories while walking outside. You press start in the len when you start and then stop when you are finished. 10.? It is important to communicate with me weekly by text, your weight and if you are having any problems with the plans 11. Please get labs, EKG and chest X-Ray within 1 week. 12. Discussed and answered all questions regarding?obtained consent to participate in the [facility]?Registry. 13. Please follow the diet plan exactly, without any change. If you do not like something about the plan or you feel hungry, you need to communicate with me so I can help you revise the plan. You should not change the plan yourself. Text me at [phone] 14. Goal is to lose at least 12 pounds in the first month 15. Goal is to lose 10% of your weight before surgery, which is about 27 lbs. Ultimate weight goal: 242 lbs before surgery Patient is morbidly obese and is not considered stable at this time.?I spent a total of 70 minutes reviewing/updating records, examining the patient and counseling the patient on weight management as detailed above. Orders: Orders Vitamin B12 and Folate Today E11.9 - Type 2 diabetes mellitus without complications, E66.01 - Morbid (severe) obesity due to excess calories, E78.5 - Hyperlipidemia, unspecified, I10 - Essential (primary) hypertension Comprehensive Met. Panel Today E11.9 - Type 2 diabetes mellitus without complications, E66.01 - Morbid (severe) obesity due to excess calories, E78.5 - Hyperlipidemia, unspecified, I10 - Essential (primary) hypertension C Reactive Protein Today E11.9 - Type 2 diabetes mellitus without complications, E66.01 - Morbid (severe) obesity due to excess calories, E78.5 - Hyperlipidemia, unspecified, I10 - Essential (primary) hypertension Ferritin Today E11.9 - Type 2 diabetes mellitus without complications, E66.01 - Morbid (severe) obesity due to excess calories, E78.5 - Hyperlipidemia, unspecified, I10 - Essential (primary) hypertension Hemoglobin A1c Today E11.9 - Type 2 diabetes mellitus without complications, E66.01 - Morbid (severe) obesity due to excess calories, E78.5 - Hyperlipidemia, unspecified, I10 - Essential (primary) hypertension Insulin Today E11.9 - Type 2 diabetes mellitus without complications, E66.01 - Morbid (severe) obesity due to excess calories, E78.5 - Hyperlipidemia, unspecified, I10 - Essential (primary) hypertension IRON PROFILE Today E11.9 - Type 2 diabetes mellitus without complications, E66.01 - Morbid (severe) obesity due to excess calories, E78.5 - Hyperlipidemia, unspecified, I10 - Essential (primary) hypertension Lipid Panel Today E11.9 - Type 2 diabetes mellitus without complications, E66.01 - Morbid (severe) obesity due to excess calories, E78.5 - Hyperlipidemia, unspecified, I10 - Essential (primary) hypertension PTHI Today E11.9 - Type 2 diabetes mellitus without complications, E66.01 - Morbid (severe) obesity due to excess calories, E78.5 - Hyperlipidemia, unspecified, I10 - Essential (primary) hypertension TSH reflex Free T4 Today E11.9 - Type 2 diabetes mellitus without complications, E66.01 - Morbid (severe) obesity due to excess calories, E78.5 - Hyperlipidemia, unspecified, I10 - Essential (primary) hypertension Vitamin A Today E11.9 - Type 2 diabetes mellitus without complications, E66.01 - Morbid (severe) obesity due to excess calories, E78.5 - Hyperlipidemia, unspecified, I10 - Essential (primary) hypertension Vitamin B1 Today E11.9 - Type 2 diabetes mellitus without complications, E66.01 - Morbid (severe) obesity due to excess calories, E78.5 - Hyperlipidemia, unspecified, I10 - Essential (primary) hypertension Vitamin D 25-OH Total Today E11.9 - Type 2 diabetes mellitus without complications, E66.01 - Morbid (severe) obesity due to excess calories, E78.5 - Hyperlipidemia, unspecified, I10 - Essential (primary) hypertension Zinc Today E11.9 - Type 2 diabetes mellitus without complications, E66.01 - Morbid (severe) obesity due to excess calories, E78.5 - Hyperlipidemia, unspecified, I10 - Essential (primary) hypertension ECG 12 lead EKG Today E11.9 - Type 2 diabetes mellitus without complications, E66.01 - Morbid (severe) obesity due to excess calories, E78.5 - Hyperlipidemia, unspecified, I10 - Essential (primary) hypertension FL upper GI w air Today E11.9 - Type 2 diabetes mellitus without complications, E66.01 - Morbid (severe) obesity due to excess calories, E78.5 - Hyperlipidemia, unspecified, I10 - Essential (primary) hypertension Complete Blood Count Auto Diff Today E11.9 - Type 2 diabetes mellitus without complications, E66.01 - Morbid (severe) obesity due to excess calories, E78.5 - Hyperlipidemia, unspecified, I10 - Essential (primary) hypertension H Pylori Breath Test Today E11.9 - Type 2 diabetes mellitus without complications, E66.01 - Morbid (severe) obesity due to excess calories, E78.5 - Hyperlipidemia, unspecified, I10 - Essential (primary) hypertension US abdomen comp w elastography Today E11.9 - Type 2 diabetes mellitus without complications, E66.01 - Morbid (severe) obesity due to excess calories, E78.5 - Hyperlipidemia, unspecified, I10 - Essential (primary) hypertension XR chest 2V Today E11.9 - Type 2 diabetes mellitus without complications, E66.01 - Morbid (severe) obesity due to excess calories, E78.5 - Hyperlipidemia, unspecified, I10 - Essential (primary) hypertension Referrals Behavioral Health Referral E11.9 - Type 2 diabetes mellitus without complications, E66.01 - Morbid (severe) obesity due to excess calories, E78.5 - Hyperlipidemia, unspecified, I10 - Essential (primary) hypertension Nutrition/Dietitian Referral E11.9 - Type 2 diabetes mellitus without complications, E66.01 - Morbid (severe) obesity due to excess calories, E78.5 - Hyperlipidemia, unspecified, I10 - Essential (primary) hypertension Coding Level of Care Code New Pt Level 5 (84343) Diagnoses Morbid obesity E66.01 Time Spent (min) 70
[2022-12-03 15:45] VITALS: BP 138/69; PULSE 98; TEMP 37.1; O2SAT 97; BMI 44.8
== END 2022-12-03 16:57 | disposition home or self-care (01) ==
PROVIDERS: PCP Internal Medicine; Visit Provider Physician Assistant Surgical
DX: E66.01 Morbid (severe) obesity due to excess calories (principal)
CPT/HCPCS: 99205

== ENCOUNTER → 2022-12-03 15:37 | Outpatient (BNVA) | payer OTHER, SELFPAY | PROVIDERS: PCP Internal Medicine; Visit Provider Physician Assistant Surgical ==

== ENCOUNTER 2023-01-08 09:49 | Outpatient (AMB) | payer OTHER, SELFPAY ==
--- NOTE | 2023-01-08 09:53 | A.OFFVIS_ITS ---
Intake Vital Signs 01/08/23 09:54 Height 5 ft 5 in Weight 262 lb 9.129 oz BMI 43.7 BP 138/76 Blood Pressure Location Lt brachial Position Sitting Pulse 70 Pulse Source Pulse Oximeter Temp 98 F Temp Source Skin Pulse Oximetry (%) 100 Oxygen Delivery Method Room Air Intake Visit Reasons: Pain in left finger/Right finger Intake Note: New patient here for multiple finger pain and joint pains. Left 3rd finger is turning. Bridge Inspector Required: No Accompanied by: Self / Same As Patient Allergies lisinopril Adverse Reaction (Intermediate, Uncoded 10/07/22 14:58) Cough Medication List - Last Reconciled 01/08/23 by Merrick Whitman MD albuterol sulfate 90 mcg/actuation 1 inh inhalation QID PRN blood sugar diagnostic (FreeStyle Lite Strips) Use 1 test strip once a day blood-glucose meter (FreeStyle Lite Meter kit) As directed dulaglutide (Trulicity) 0.75 mg (0.5 mL) subcut QWEEK 30 days hydrochlorothiazide 25 mg PO DAILY 90 days lancets (FreeStyle Lancets) Use 1 lancet once a day HPI HPI Comments History of Present Illness Details The patient presents for complaints of hand pain and positive LYDIA. For about a year now she has been noting some of her interphalangeal joints have been enlarging. They are occasionally painful. More recently there has been more pain at the 3rd distal IP joint in the left hand. There is no injury in this area. 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 She has also had some knee pain, right greater than left, usually on stairs. There has been no knee injury or knee swelling. She also gets back pain that radiates to the buttock areas with prolonged standing. 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 Since then the feet have served her reasonably well although when she does stand on her feet a long time she gets some ankle pain. She does take occasional ibuprofen or Tylenol for her symptoms. She notes that regular use of ibuprofen seems to bother her stomach and exacerbate her heartburn. Otherwise she takes acetaminophen 500 mg 2 or 3 times a day and that does help her to some degree. She recently had a blood work done and showed a positive LYDIA. There is history of bilateral carpal tunnel release done for hand paresthesias in those were successful. 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 Vitiligo Surgical History History of bilateral breast reduction surgery History of History of carpal tunnel surgery History of clubfoot correction History of hysterectomy Family History (Updated 01/08/23 @ 09:57 by FAHAD Jones) Mother Diabetes CHF (congestive heart failure) Stroke Father Colon cancer Stroke Family/Other Substance use disorder Cancer Other Arthritis Social History (Updated 01/08/23 @ 09:58 by FAHAD Jones) Household Members: Family Household Members Other:: Homeless Housing: House Alcohol intake: current Alcohol intake frequency: holidays/special occasions only Alcohol type: beer Patient Tobacco Use Status: Former Tobacco user Tobacco use type: Cigarette e-Cigarette/Vaping Use: Never Used Second Hand Smoke Exposure: No service: No Current occupational status: employed 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 Negative for appetite change, fever, chills, malaise and fatigue Eyes Details: The eyes were dry when particularly she was using contact lenses so she stopped using them. She does not use any eyedrops currently. Negative for vision change, headaches and dizziness ENT Details: Some oral dryness. She attributes this to her diabetes. Negative for hearing change, tinnitus, oral ulcer, nose bleeds . Card Details: Negative chest pain, edema and syncope Resp Details: History of asthma, occasional wheezing treated with p.r.n. albuterol inhaler. Negative for SOB, cough and wheezing GI Details: Occasional heartburn. Negative nausea, abdominal pain, bowel changes, diarrhea, constipation and bloody stool. Details: One early miscarriage. Negative for dysuria, hematuria, nocturia, decreased force/flow and genital discharge Skin/Breast Details: She says she has patches of vitiligo in the left foot and the left thigh. Negative for itching, rash, hives, Raynaud's symptoms, sun sensitivity, and skin cancer Neuro Details: Negative for epilepsy, palsy, stroke, changes in speech, tingling and weakness Psych Details: Negative for anxiety, depression and stress Endo Details: Negative for polyuria and polydypsia Escobar/Lymph Details: Negative for excessive bruising or bleeding. Physical Exam Vital Signs: Last Vital Signs Temp 98 F 01/08/23 09:54 Pulse 70 01/08/23 09:54 BP 138/76 01/08/23 09:54 Pulse Ox 100 01/08/23 09:54 Oxygen Delivery Method Room Air 01/08/23 09:54 BMI result Body Mass Index 43.7 APPEARANCE: Patient in no acute distress EYES no redness, pupils equal and reactive to light, eyelids normal EARS: External ear normal, canal clear and tympanic membrane normal. NOSE/SINUS: Airflow through both nares, no nasal discharge, no bleeding THROAT: Oral mucosa moist, no ulcerations NECK: No thyromegaly or masses, no adenopathy, trachea midline. HEART: Regulrar rhythm, S1-S2 heard, no murmurs, rubs or gallops. LUNG: Clear to percussion and auscultation ABD: Normal bowel sounds, no organomegaly, masses or tenderness. EXTREMITIES: No edema, no calf tenderness, normal peripheral pulses. NEURO: Oriented and alert x3. No focal weakness. Reflexes symmetric. Gait normal. SKIN: Patchy hypopigmentation over the dorsum of the left foot. No inflammatory or neoplastic lesions. Normal color and turgor JOINT EXAM:.?? Cervical Spine:.? Full range of motion without pain; no tenderness. Thoracic Spine:.? No scoliosis.? No tenderness on palpation. Lumbar Spine:.? Alignment normal.? Mild pain with extremes of normal flexion or extension. No tenderness. Chest Wall:.? No tenderness, swelling, increased warmth or erythema. Hands: Right: Slight bony enlargement without tenderness at the thumb IP and the 2nd 3rd PIP joints. Other joints have normal pain-free range of motion without tenderness, swelling, increased warmth or erythema. There is no sensory loss, thenar atrophy, or soft tissue swelling. No flexor tendon triggering. Left: Mild discomfort with range of motion at the 3rd PIP. There is slight bony enlargement at the 2nd and 3rd PIP's; the 3rd is slightly tender. There is mild bony enlargement at the 2nd 3rd distal IP's. The 3rd has [id number]-[id number] tenderness but there is no redness or soft tissue swelling. No thenar atrophy or sensory loss. No flexor tendon triggering. Wrists:.? Normal pain-free range of motion without tenderness, swelling, increased warmth or erythema. Elbows:. Normal pain-free range of motion without tenderness, swelling, increased warmth or erythema. Shoulders:.?? Full range of motion without pain. No tenderness, weakness, swelling, increased warmth or erythema. Hips:.? Full range of motion without pain. Hip bursa:.? No tenderness. Knees: Left: Right: Some lateral tilting of the patella. Mild patellofemoral crepitus but pain-free range of motion. No effusion, tenderness, redness or warmth. Right: Some lateral tilting of the patella with mild patellofemoral crepitus. There is some minimal medial compartment tenderness without redness or effusion. Ankles:.? Both ankles have some diminishment in AP motion but without pain. There is almost no inversion or eversion evident in either ankle. None of the areas are tender. There is no soft tissue swelling, redness or warmth. There is extensive, blotchy vitiligo over the dorsum of the left ankle and foot. Feet:.? Normal pain-free range of motion with some slight bony enlargement at the 1st MTP. That area is slightly tender. Otherwise no tenderness, swelling, increased warmth or erythema. Tender points:.? No tenderness to digital palpation at the occiput, trapezius, second rib, lateral epicondyle, knees, greater trochanter and gluteal area bilaterally. ? Results Reviewed Results Reviewed: Laboratory Tests 06/05/22 06/05/22 07/26/22 09:50 09:50 16:09 Hgb 12.9 Creatinine 0.76 TSH 0.75 LYDIA Titer 1:[address] [address] XRay Report Signed Patient: Dorothea Tolbert MR#: [id number] : 1965 Acct:[id number] Age/Sex: 57 / F ADM Date: 08/21/[address]: Lydia Lopes MD Ordering Physician: Lydia Gray MD Date of Service: 08/21/22 Procedure(s): XR hand LT 2V Accession Number(s): [id number] cc: Lydia Gray MD~ EXAMINATION: Bilateral hand x-ray CLINICAL INFORMATION: Pain? COMPARISON: None.? TECHNIQUE: 3 views of each hand? FINDINGS: Right: Bone alignment is normal. No fracture or dislocation. Normal joint spaces. Normal soft tissues. Left: Bone alignment is normal. No fracture or dislocation. 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 Joint spaces are otherwise normal. Soft tissues are normal.? XR/XR hand LT 2V IMPRESSION: Right: Unremarkable exam ? Left: Osteoarthritis at the DIP joints.? Dictated By: Birgit Alva MD [address] [address] XRay Report Signed Patient: Dorothea Tolbert MR#: [id number] : 1965 Acct:[id number] Age/Sex: 57 / F ADM Date: 08/21/[address]: Lydia Lopes MD Ordering Physician: Lydia Gray MD Date of Service: 08/21/22 Procedure(s): XR lumbar spine 2-3V Accession Number(s): [id number] cc: Lydia Gray MD~ EXAMINATION: XR LUMBOSACRAL SPINE CLINICAL INFORMATION: Low back pain COMPARISON: None available. TECHNIQUE: Three views of the lumbosacral spine. FINDINGS: There is mild 4 mm anterior subluxation of L4 forward respect L5. Bone alignment is otherwise normal. No fracture or dislocation. Disc spaces are normal. There is lower lumbar spine facet arthritis. XR/XR lumbar spine 2-3V IMPRESSION: Mild anterior subluxation of L4 with respect L5 and lower lumbar spine facet arthritis. Dictated By: Birgit Alva MD Signed By: <Electronically signed by Birgit Alva MD Assessment & Plan Assessment & Plan (1) Osteoarthritis of knees, bilateral: Code(s): M17.0 - Bilateral primary osteoarthritis of knee (2) Osteoarthritis of lumbar spine: Code(s): M47.816 - Spondylosis without myelopathy or radiculopathy, lumbar region (3) Osteoarthritis of hands, bilateral: Comment: L>R Code(s): M19.041 - Primary osteoarthritis, right hand; M19.042 - Primary osteoarthritis, left hand (4) LYDIA positive: Code(s): R76.8 - Other specified abnormal immunological findings in serum Plan The patient has a low titer positive LYDIA but no other symptoms or signs to suggest active lupus. The hand pain is due to osteoarthritis, particularly at the distal IP joints in the left hand. It looks like the PIP's are also at risk for developing further OA changes. She has low back pain with radiation to the buttocks consistent with lumbar osteoarthritis and some tenderness and occasional knee pain with stairs consistent with OA in the knees. There is some ocular and oral dryness which raises the question of Sjogren's disease. We will check for signs of systemic autoimmune disease with further chemistries, CBC, inflammatory markers, complement levels, and more specific anti DNA and Sjogren's antibodies. I told her I thought the likelihood of autoimmune disease was low outside of her vitiligo. We will get back to her with the results of her studies as they return. Symptomatic measures were discussed with her including topical diclofenac gel which she says she will try to acquire [id number]. She could continue with the acetaminophen for pains if needed and in light of her history of GERD I think she should try to avoid NSAIDs. Orders: Orders Comprehensive Met. Panel Today R76.8 - Other specified abnormal immunological findings in serum C Reactive Protein Today R76.8 - Other specified abnormal immunological findings in serum Protein Creatinine Ratio, Ur Today R76.8 - Other specified abnormal immunological findings in serum Complete Blood Count Auto Diff Today R76.8 - Other specified abnormal immunological findings in serum Erythrocyte Sedimentation Rate Today R76.8 - Other specified abnormal immunological findings in serum Complement C3 Today R76.8 - Other specified abnormal immunological findings in serum Complement C4 Today R76.8 - Other specified abnormal immunological findings in serum Anti DNA DS Antibody Today R76.8 - Other specified abnormal immunological findings in serum Anti Extractable Nuclear Ag Today R76.8 - Other specified abnormal immunological findings in serum Sjogren's Antibodies Today R76.8 - Other specified abnormal immunological findings in serum Coding Level of Care Code New Pt Level 4 (74571) Diagnoses Osteoarthritis of knees, bilateral M17.0 Osteoarthritis of lumbar spine M47.816 Osteoarthritis of hands, bilateral M19.041; M19.042 LYDIA positive R76.8
[2023-01-08 09:54] VITALS: BP 138/76; PULSE 70; TEMP 36.6; O2SAT 100; BMI 43.7
== END 2023-01-08 10:39 | disposition home or self-care (01) ==
PROVIDERS: PCP Internal Medicine; Visit Provider Internal Medicine Rheumatology
DX: M17.0 Bilateral primary osteoarthritis of knee (principal); M47.816 Spondylosis without myelopathy or radiculopathy, lumbar region; M19.041 Primary osteoarthritis, right hand; M19.042 Primary osteoarthritis, left hand; R76.8 Other specified abnormal immunological findings in serum
CPT/HCPCS: 99204

== ENCOUNTER → 2023-01-08 09:49 | Outpatient (BNVA) | payer OTHER, SELFPAY | PROVIDERS: PCP Internal Medicine; Visit Provider Internal Medicine Rheumatology ==

== ENCOUNTER 2023-01-08 10:43 | Outpatient (REF) | payer OTHER, SELFPAY ==
[2023-01-08 13:11] LABS: MANUAL DIFF FLAG NO
[2023-01-08 13:31] LABS: Basophils Percent Auto 0.3 % (0-2); Eosinophils Absolute Auto 0.3 X10*3/uL (0.0-0.4); Eosinophils Percent Auto 3.3 % (0-4); Hematocrit 41.8 % (37.0-47.0); Hemoglobin 13.2 g/dl (12.0-16.0); Imm Gran Abs Auto 0.02 X10*3/uL (0.00-0.03); Imm Gran Pct Auto 0.3 % (0.0-0.4); Lymphocytes Percent Auto 37.9 % (20-40); Mean Corpuscular HGB Conc 31.6 g/dl (31.0-35.0); Mean Corpuscular Hemoglobin 30.1 pg (27.0-33.0); Mean Corpuscular Volume 95.2 fL (80.0-98.0); Mean Platelet Volume 9.9 fL (9.4-12.3); Monocytes Absolute Auto 0.5 X10*3/uL (0.1-1.2); Monocytes Percent Auto 6.1 % (2-11); Neutrophils Absolute Auto 4.1 x10*3/uL (2.0-8.3); Neutrophils Percent Auto 52.1 % (45-73); Platelet Count 267 X10*3/uL (160-400); Red Blood Count 4.39 X10*6/uL (4.20-5.50); Red Cell Distribution Width 13.5 % (11.0-16.0); White Blood Count 7.9 X10*3/uL (4.8-10.8)
== END 2023-01-08 10:44 | disposition home or self-care (01) ==
LOC: HO.10HDL 10:43
PROVIDERS: Visit Provider Internal Medicine Rheumatology
DX: R76.8 Other specified abnormal immunological findings in serum (principal)
CPT/HCPCS: 36415; 85025; 86160

== ENCOUNTER 2023-01-16 09:37 | Outpatient (REF) | payer OTHER, SELFPAY ==
[2023-01-16 16:40] LABS: Erythrocyte Sedimentation Rate 20 MM/HR (0-20)
[2023-01-16 16:45] LABS: Alanine Aminotransferase 16 U/L (0-31); Albumin Level 4.3 g/dL (3.5-5.0); Alkaline Phosphatase 51 U/L (39-117); Anion Gap 13 (12-20); Aspartate Amino Transferase 19 U/L (5-31); Bilirubin Total 0.3 mg/dL (0.0-1.0); Blood Urea Nitrogen 18 mg/dL (9-16); C Reactive Protein 0.92 mg/dL (< or = 0.50); Calcium 9.6 mg/dL (8.4-10.2); Carbon Dioxide 27 mmol/L (22-29); Chloride 108 mmol/L (96-108); Estimated Glomerular Filt Rate 51; Glucose Random 116 mg/dL (60-115); Potassium 3.6 mmol/L (3.3-5.1); Sodium 144 mmol/L (135-145); Total Protein 7.7 g/dL (6.5-8.0)
[2023-01-20 13:33] LABS: Complement C3 142 mg/dL (83-193)
[2023-01-20 20:44] LABS: Anti DNA DS Antibody 1 IU/mL; Antibody to SS-A Antigen <1.0 NEG AI (<1.0 NEG); Antibody to SS-B Antigen <1.0 NEG AI (<1.0 NEG); SM/Ribonucleoprotein Ab <1.0 NEG AI (<1.0 NEG); Smith Protein <1.0 NEG AI (<1.0 NEG)
== END 2023-01-16 09:38 | disposition home or self-care (01) ==
LOC: HO.LAB 09:37
PROVIDERS: PCP Internal Medicine; Visit Provider Internal Medicine Rheumatology
DX: R76.8 Other specified abnormal immunological findings in serum (principal)
CPT/HCPCS: 36415; 80053; 85652; 86140; 86160; 86225; 86235

== ENCOUNTER 2023-01-17 13:11 | Outpatient (REF) | payer OTHER, SELFPAY ==
[2023-01-17 16:13] LABS: Creatinine Urine 148.99 mg/dL; Total Protein Urine Random < 7 mg/dL (<12)
== END 2023-01-17 13:12 | disposition home or self-care (01) ==
LOC: HO.LNP 13:11
PROVIDERS: Visit Provider Internal Medicine Rheumatology
DX: R76.8 Other specified abnormal immunological findings in serum (principal)
CPT/HCPCS: 82570; 84156

== ENCOUNTER 2023-06-12 09:33 | Emergency (ER) | payer OTHER, SELFPAY ==
--- NOTE | ~2023-06-12 | XR_ITS ---
EXAMINATION: XR CHEST CLINICAL INFORMATION: Cough COMPARISON: Chest x-ray on 08/21/2022 TECHNIQUE: 2 views of the chest were obtained. FINDINGS: vascularity. LUNGS: Lungs are clear. No pneumothorax is seen. BONES: Bony skeleton is intact. XR/XR chest 2V IMPRESSION: Unchanged Normal chest x-ray.
[2023-06-12 09:46] VITALS: BP 145/81; PULSE 81; RESP 18; TEMP 36.8; O2SAT 96; BMI 44.1
[2023-06-12 09:56] VITALS: RESP 18
--- NOTE | 2023-06-12 09:58 | PC.NURSE ---
Pt is a&ox4 coming in with x3 days of sore throat, coughing up mucus, and coughing. Reports pain upon inhalation. Skin PWD, MAEI. Respirations even and unlabored.
[2023-06-12] MEDS: predniSONE 20 MG TABLET 40 MG PO (10:03)
--- NOTE | 2023-06-12 10:04 | ED.URI ---
HPI - URI/Sore Throat General Chief Complaint: Upper Respiratory Symptoms Stated Complaint: pneumonia? Time Seen by Provider: 06/12/23 09:53 Source: patient Mode of arrival: ambulatory Limitations: no limitations History of Present Illness HPI Narrative: 58 yo female former smoker hx of pneumonia and bronchitis, vitiligo, DM, HTN here with c/o 3 days of swollen glands, productive cough, not feeling well and pain in R lung. 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 elicited complaint: cough Pertinent past history: asthma Onset (ago): day(s) (3) Consistency: constant Severity: moderate Description of mucous: yellow Able to tolerate fluids by mouth: Yes Exacerbating factors: other (coughing, breathing) Relieving factors: nothing Context: sick contacts Associated symptoms: chills, rhinorrhea, cough and shortness of breath Treatments prior to arrival: none Related Data Previous Rx's Medication Instructions Recorded albuterol sulfate 90 mcg/actuation 1 inh inhalation QID PRN shortness 04/06/22 aerosol inhaler of breath or wheezing #8.5 grams blood sugar diagnostic (FreeStyle #100 ea 08/13/22 Lite Strips) blood-glucose meter (FreeStyle #1 ea 08/13/22 Lite Meter kit) lancets 28 gauge (FreeStyle #100 ea 08/13/22 Lancets) hydrochlorothiazide 25 mg tablet 25 mg PO DAILY 90 days #90 tabs 03/12/23 dulaglutide 0.75 mg/0.5 mL 0.75 mg (0.5 mL) subcut QWEEK 30 04/01/23 subcutaneous pen injector days #2.5 mL (Trulicity) amoxicillin 875 mg-potassium 1 tab PO BID #14 tabs 06/12/23 clavulanate 125 mg tablet prednisone 20 mg tablet 40 mg (2 x 20 mg) PO DAILY 4 days 06/12/23 #8 tabs Allergies Allergy/AdvReac Type Severity Reaction Status Date / Time lisinopril AdvReac Intermediate Cough Uncoded 10/07/22 14:58 Review of Systems Review of Systems: Constitutional : No Fever, pos Chills ENT/Mouth : No Hoarseness, No sore throat, No Rhinorrhea Eyes: No Redness, No Discharge, No Vision Changes Cardiovascular : No Chest Pain, positive SOB, positive Dyspnea on Exertion, No Edema Respiratory : positive Cough, pos Sputum, positive Wheezing, Gastrointestinal : No Nausea, No Vomiting, No Diarrhea, No abdominal Pain Genitourinary : No Dysuria, No Hematuria Musculoskeletal : No joint pain, No Myalgias Skin : No rash Neuro : No Weakness, No Numbness, No Headache Psych : No anxiety, depression Heme/Lymph: No Bruising, No Bleeding, pos lymphadenopathy Endocrine : No Polyuria, No Polydipsia All other systems reviewed and are negative PMFSH Past Medical History Attestation statement: The following information was validated with the patient. 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 Family history of gastric cancer Family history of colorectal cancer Hepatitis C Surgical History History of bilateral breast reduction surgery History of hysterectomy History of clubfoot correction History of carpal tunnel surgery History of Family History Family History (Updated 01/08/23 @ 09:57 by FAHAD Ordaz) Mother Diabetes CHF (congestive heart failure) Stroke Father Colon cancer Stroke Family/Other Substance use disorder Cancer Other Arthritis Social History Social History Household Members: Family Household Members Other:: Homeless Housing: House Alcohol intake: current Alcohol intake frequency: holidays/special occasions only Alcohol type: beer Patient Tobacco Use Status: Former Tobacco user Tobacco use type: Cigarette Smoked in Last 30 Days: No e-Cigarette/Vaping Use: Never Used Second Hand Smoke Exposure: No Use of substances other than those prescribed or required for medical reasons: No Advance Directives: No Patient : No service: No Current occupational status: employed 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 Oriented X3. No acute distress. Eyes: Pupils equal, round and reactive to light. ENT: Pharynx very mild erythema no exudates Neck: Normal inspection. very mild anterior cervical lymphadenopathy CVS: Normal heart rate and rhythm. Pulses normal. Respiratory: No respiratory distress. Breath sounds diminished R sided Abdomen: Soft and nontender. Skin: Skin warm and dry. Normal skin color. Normal skin turgor. Extremities: No lower extremity edema. No calf ttp Neuro: Oriented X 3. No motor deficit. No sensory deficit. Medications Administered Discontinued Medications Generic Name Dose Route Start Last Admin Trade Name Freq PRN Reason Stop Dose Admin Albuterol Sulfate 2.5 mg/ 0 mg 06/12/23 10:25 06/12/23 10:31 Albuterol/Ipratropium 3 ml INHALE 06/12/23 10:26 5 dose ONCE ONE Administration Prednisone 40 mg 06/12/23 09:56 06/12/23 10:03 Prednisone 20 Mg Tablet PO 06/12/23 09:57 40 mg ONCE ONE Administration Medical Decision Making Medical Decision Making [facility] Narrative: 58 yo female former smoker hx of pneumonia and bronchitis, vitiligo, DM, HTN here with cough, sputum production, swollen glands she is not toxic, no hypoxia and no resp distress at this time will order neb and steroids obtain CXR and swabs. Differential Diagnosis Differential Diagnoses: The differential diagnosis associated with the presentation includes asthma, bronchitis, COVID Admission/Observation Consideration of admission/observation: Escalation of care including admission/observation considered feels better no hypoxia Lab Data [facility] Lab Attestation statement: I reviewed the patient's lab results. Labs: Lab Results 06/12/23 06/12/23 Range/Units 10:00 10:48 Influenza Type A (MARILUZ) Negative (Negative) Influenza Type A (PCR) NEGATIVE (Negative) Influenza Type B (MARILUZ) Negative (Negative) Influenza Type B (PCR) NEGATIVE (Negative) Influenza A & B Note See Note RSV RNA Qual (PCR) NEGATIVE (Negative) SARS-CoV-2 RNA (RT-PCR) NEGATIVE (Negative) S. pyogenes GrpA MARILUZ Negative (Negative) Independent Interpretation I performed an independent interpretation of an: Plain X-Ray (no pneumonia) Radiology Impression Discussion of test interpretation with radiology: I have reviewed the radiologist's reading. External Record Review External record reviewed: Inpatient record Prescription Management I considered prescription management with: Antibiotic and Other Discharge Plan Discharge Clinical Impression: Bronchitis Patient Disposition: Home, Self-Care Instructions: Acute Bronchitis (ED) Additional Instructions: return for worsening breathing pain or any other concerns flu covid and chest xray normal take a probiotic while on antibiotics Prescriptions: New prednisone 20 mg tablet 40 mg PO DAILY 4 Days Qty: 8 0RF amoxicillin-pot clavulanate 875-125 mg tablet 1 tab PO BID Qty: 14 0RF No Action hydrochlorothiazide 25 mg tablet 25 mg PO DAILY 90 Days Qty: 90 1RF Trulicity 0.75 mg/0.5 mL pen injector 0.75 mg subcut QWEEK 30 Days Qty: 2.5 6RF albuterol sulfate 90 mcg/actuation HFA aerosol inhaler 1 inh inhalation QID PRN (Reason: shortness of breath or wheezing) Qty: 8.5 0RF (DME) blood-glucose meter [FreeStyle Lite Meter] Kit See Rx Instructions .Route Qty: 1 0RF Rx Instructions: As directed (DME) FreeStyle Lite Strips Strip See Rx Instructions .Route Qty: 100 3RF Rx Instructions: Use 1 test strip once a day (DME) lancets [FreeStyle Lancets] 28 gauge misc See Rx Instructions .Route Qty: 100 3RF Rx Instructions: Use 1 lancet once a day Stand Alone Forms: Work/School Release
[2023-06-12 10:13] LABS: IDNOW Serial# 08D9AD1C; Strep A Nucleic Acid Negative (Negative)
[2023-06-12 10:19] LABS: IDNOW Serial# 152EDE1D; Influenza A Negative (Negative); Influenza B2 Negative (Negative)
[2023-06-12] MEDS: Albuterol Sulfate 2.5 MG, Albuterol/Iprat 2.5/0.5MG 3 ML 3 ML INHALE (10:31)
[2023-06-12 10:32] VITALS: PULSE 76; RESP 16; O2SAT 97
[2023-06-12 11:30] LABS: Influenza A PCR NEGATIVE (Negative); Influenza B PCR NEGATIVE (Negative); Resp Syncy Virus RNA Qual PCR NEGATIVE (Negative); SARS COV2 PCR INHOUSE NEGATIVE (Negative)
[2023-06-12 12:00] VITALS: BP 141/64; PULSE 87; RESP 16; O2SAT 98
== END 2023-06-12 12:44 | disposition home or self-care (01) ==
PROVIDERS: Emergency Provider Emergency Medicine; PCP Internal Medicine
DX: J40 Bronchitis, not specified as acute or chronic (principal); R05.9 Cough, unspecified; Z20.822 Contact with and (suspected) exposure to COVID-19; Z20.828 Contact with and (suspected) exposure to other viral communicable diseases; Z87.891 Personal history of nicotine dependence
CPT/HCPCS: 0241U; 71046; 87502; 87651; 94640; 99284

== ENCOUNTER 2023-07-30 15:54 | Outpatient (AMB) | payer OTHER, SELFPAY ==
--- NOTE | 2023-07-30 16:16 | A.OFFPC_ITS ---
Vital Signs 07/30/23 16:18 Height 5 ft 5 in Weight 264 lb BMI 43.9 BP 132/72 Blood Pressure Location Lt brachial Position Sitting Intake Visit Reasons: pe Intake Note: patient here for a physical exam Property Manager Required: No Accompanied by: Self / Same As Patient Allergies Suxydie-TOQ-JwM Reductase Inhibitor Adverse Reaction (Intermediate, Verified 07/30/23 16:51) myalgia lisinopril Adverse Reaction (Intermediate, Uncoded 07/30/23 16:47) Cough trulicity Adverse Reaction (Intermediate, Uncoded 07/30/23 16:51) knee pain Medication List - Last Reconciled 07/30/23 by Lydia Lopes MD albuterol sulfate 90 mcg/actuation 1 inh inhalation QID PRN blood sugar diagnostic (FreeStyle Lite Strips) Use 1 test strip once a day blood-glucose meter (FreeStyle Lite Meter kit) As directed hydrochlorothiazide 25 mg PO DAILY 90 days lancets (FreeStyle Lancets) Use 1 lancet once a day Tobacco use date assessed: 07/30/23 Dental Screening Dental Screen Date: 07/30/23 Did you have a dental visit in the last 12 months?: Yes Did you have a dental problem in the last 6 months where you did not have access to dental care?: No Was dental information given to patient?: Patient has dentist HPI HPI Comments History of Present Illness Details This is a 58-year-old female with diabetes mellitus type 2 and morbid obesity that comes for her physical exam. A1c within goal. She is morbidly obese with a BMI of 43.9 and at the moment not interested in weight loss surgery. Stop using Trulicity about 2 months ago due to muscle aches. I will start her on Mounjaro. Last mammogram was over a year ago. Has never had a colonoscopy and will be referred to a colonoscopy. No need for Pap smear due to hysterectomy. 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 Family history of gastric cancer Family history of colorectal cancer Hepatitis C Surgical History History of bilateral breast reduction surgery History of hysterectomy History of clubfoot correction History of carpal tunnel surgery History of Family History Mother Diabetes CHF (congestive heart failure) Stroke Father Colon cancer Stroke Family/Other Substance use disorder Cancer Other Arthritis Social History Household Members: Family Household Members Other:: Homeless Housing: House Alcohol intake: current Alcohol intake frequency: holidays/special occasions only Alcohol type: beer Patient Tobacco Use Status: Former Tobacco user Tobacco use type: Cigarette e-Cigarette/Vaping Use: Never Used Second Hand Smoke Exposure: No service: No Current occupational status: employed 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 1. Little interest or pleasure in doing things: not at all 2. Feeling down, depressed, or hopeless: not at all 3. Trouble falling or staying asleep, or sleeping too much: not at all 4. Feeling tired or having little energy: not at all 5. Poor appetite or overeating: not at all 6. Feeling bad about yourself - or that you are a failure or have let yourself or your family down: not at all 7. Trouble concentrating on things, such as reading the newspaper or watching television: not at all 8. Moving or speaking so slowly that other people could have noticed. Or the opposite - being so fidgety or restless that you have been moving around a lot more than usual: not at all 9. Thoughts that you would be better off or of hurting yourself in some way : not at all Total score: 0 Depression Screening Interpretation: Negative Depression Screening Done: Yes 98900 - PHQ-9 Billing: Yes Source: Developed by Drs. Adam Gomez, Tessa Mendez, Freddy Enriquez and colleagues, with an educational linda from [employer]. Thrive Questionnaire Date Thrive assessed: 07/30/23 I am a: Patient What is your living situation today?: I have a steady place to live Within the past 12 months, did the food you bought not last and you didn't have the money to get more?: Never true Within the past 12 months, did you worry whether your food would run out before you got money to buy more?: Never true Do you have trouble paying for medicines?: No Do you have trouble getting transportation to medical appointments?: No Do you have trouble paying your heating and electricity bill?: No Do you have trouble taking care of your child, family member or friend?: No Do you have trouble with day-to-day activities such as bathing, preparing meals, shopping, managing finances, etc.?: No Are you currently unemployed and looking for a job?: No Are you interested in more education?: No Please select the resources that you would like help with: None Currently or been in a relationship where the following occur: no concerns reported THRIVE Score: 0 AUDIT C Alcohol Use Questionnaire (AUDIT-C) 1. How often do you have a drink containing alcohol?: Monthly or less 2. How many drinks containing alcohol do you have on a typical day when you are drinking?: 1 or 2 3. How often do you have six or more drinks on one occasion?: Never Total Score: 1 Score Reviewed/Action Taken: No SRINI-7 AMB Questionnaire SRINI-7 Date SRINI - 7 assessed: 07/30/23 Feeling nervous, anxious, or on edge: 0 = Not at all Not being able to stop or control worryin = Not at all Worrying too much about different things: 0 = Not at all Trouble relaxin = Not at all Being so restless that it is hard to sit still: 0 = Not at all Becoming easily annoyed or irritable: 0 = Not at all Feeling afraid as if something awful might happen: 0 = Not at all Total SRINI-7 score (0-4 normal; 5-9 mild; 10-14 moderate; 15-21 severe): 0 Source: Developed by Drs. Adam Gomez, Tessa Mendez, Freddy Enriquez and colleagues, with an educational linda from [employer]. SRINI-7 Assessment Billing SRINI-7 Assessment Tool: SRINI-7 Assessment 71540 Review of Systems Const All systems reviewed & are unremarkable except as noted in HPI and below Eyes Reports no additional complaints, Denies change in vision and Denies other visual disturbances Card Denies chest pain at rest, Denies chest pain with activity, Denies edema, Denies irregular heart rhythm, Denies claudication, Denies dyspnea, Denies dyspnea on exertion, Denies orthopnea, Denies paroxysmal nocturnal dyspnea and Denies slow heart rate Resp Denies cough, Denies dyspnea and Denies dyspnea on exertion Physical exam (Primary Care) Vital Signs: Last Vital Signs BP 132/72 07/30/23 16:18 BMI result Body Mass Index 43.9 Tobacco/Smoking Status: Tobacco use Status Tobacco use date assessed 07/30/23 07/30/23 16:27 Patient Tobacco Use Status Former Tobacco user 07/30/23 16:17 Tobacco use type Cigarette 07/30/23 16:17 e-Cigarette/Vaping Use Never Used 07/30/23 16:17 PHQ-9: PHQ-9 Score PHQ-9: Total score 0 07/30/23 16:56 Depression Screening Interpretation: Negative Thrive Assessment: Date of Thrive Assessment Date Thrive assessed 07/30/23 07/30/23 16:27 Currently or been in a relationship where the following occur: no concerns reported Const Orientation/consciousness: patient oriented x3 HENMT Head: Yes normal to inspection, Yes normocephalic and Yes atraumatic Ears: external ears normal Eyes General: appearance normal, both eyes and all related structures Eyelids: Yes eyelids normal Conjunctivae: conjunctivae normal Neck Neck: Yes normal visual inspection and Yes supple Resp Effort & Inspection: normal respiratory effort Auscultation: clear to auscultation bilaterally Cardio Jugular venous distension: no JVD Rate: regular rate Rhythm: regular rhythm Heart sounds: S1 normal heart sound present and S2 normal heart sound present GI Inspection: Yes normal to inspection Palpation (GI): Soft to palpation and nontender Auscultation: normal bowel sounds Skin General skin exam: no rashes or lesions noted Neuro General: patient oriented x3 and no focal motor deficits Extrem General: Yes full ROM Psych Appearance: grossly normal Results AMB Hemoglobin A1c AMB Hemoglobin A1c 6.8 % Last Edit by FAHAD Hart on 07/30/23 16:3 4 Results Reviewed Results Reviewed: Laboratory Last Values Hgb A1c (Clinic) 6.8 % (4.0-6.0) H 07/30/23 16:33 Assessment and Plan Assessment & Plan (1) Physical exam: Code(s): Z00.00 - Encounter for general adult medical examination without abnormal findings Plan: Repeat in a year. (2) Diabetes mellitus: Code(s): E11.9 - Type 2 diabetes mellitus without complications Plan: Start Mounjaro. A1c goal is equal or less than 7%. (3) Morbid obesity with BMI of 40.0-44.9, adult: Code(s): E66.01 - Morbid (severe) obesity due to excess calories; Z68.41 - Body mass index [BMI] 40.0-44.9, adult Plan: Start diet and exercise. BMI goal is less than 30. Orders: Orders AMB Hemoglobin A1c Today E11.9 - Type 2 diabetes mellitus without complications MM screening mammo BI Today Z12.31 - Encounter for screening mammogram for malignant neoplasm of breast Lipid Panel Today E78.5 - Hyperlipidemia, unspecified Microalbumin, Random (w Creat) Today E11.9 - Type 2 diabetes mellitus without complications Comprehensive [place] [facility] Panel Fast Today E11.9 - Type 2 diabetes mellitus without complications XR knee LT 2V Today M25.562 - Pain in left knee XR knee RT 2V Today M25.561 - Pain in right knee Referrals Gastroenterology Referral Z12.11 - Encounter for screening for malignant neoplasm of colon Medications: New tirzepatide (Mounjaro) 2.5 mg (0.5 mL) subcut QWEEK 4 weeks 2 mL 0RF E11.9 - Type 2 diabetes mellitus without complications Coding Level of Care Code Est Pt Prev Care 40-64y(75865) Diagnoses Physical exam Z00.00 Diabetes mellitus E11.9 Morbid obesity with BMI of 40.0-44.9, adult E66.01; Z68.41 Additional Codes SRINI-7 Assessment Billing - SRINI-7 Assessment Tool: SRINI-7 Assessment 38161 ([id number]) Time Spent (min) 34
[2023-07-30 16:18] VITALS: BP 132/72; BMI 43.9
== END 2023-07-30 17:03 | disposition home or self-care (01) ==
PROVIDERS: Visit Provider Internal Medicine
DX: Z00.00 Encounter for general adult medical examination without abnormal findings (principal); E11.9 Type 2 diabetes mellitus without complications; E66.01 Morbid (severe) obesity due to excess calories; Z68.41 Body mass index [BMI] 40.0-44.9, adult
CPT/HCPCS: 83036; 99396

== ENCOUNTER 2023-08-01 16:04 | Outpatient (REF) | payer OTHER, SELFPAY ==
--- NOTE | ~2023-08-01 | XR_ITS ---
EXAMINATION: XR KNEE, RIGHT CLINICAL INFORMATION: Pain. COMPARISON: None available. TECHNIQUE: AP and lateral views of the right knee. FINDINGS: Bony alignment and mineralization are normal. The lateral, medial and patellofemoral joint space compartments are well-maintained. There is very mild peripheral osteophyte formation of the lateral joint space compartment, and moderate osteoarthritic change is seen of the medial and patellofemoral joint space compartments. No fracture, dislocation or joint effusion is seen. There is an enthesophyte arising from the upper pole of the patella. No foreign body is seen. XR/XR knee RT 2V IMPRESSION: 1. There is moderate peripheral osteophyte formation of the medial and patellofemoral joint space compartments of the right knee, and very mild osteoarthritic change is seen of the lateral joint space compartment. 2. No fracture, dislocation or joint effusion is seen. EXAMINATION: XR KNEE, LEFT CLINICAL INFORMATION: Pain. COMPARISON: None available. TECHNIQUE: AP and lateral views of the left knee. FINDINGS: Bony alignment and mineralization are normal. The lateral and medial joint space compartments are well-maintained and show mild peripheral osteophyte formation. There is marked narrowing of the patellofemoral compartment, with peripheral osteophyte formation. No fracture or dislocation is seen. There is a small joint effusion. No foreign body is seen. IMPRESSION: 1. There is tricompartment osteoarthritic change of the left knee, most pronounced of the patellofemoral compartment, where degenerative change is marked. 2. There is a small joint effusion.
--- NOTE | ~2023-08-01 | XR_ITS ---
EXAMINATION: XR KNEE, RIGHT CLINICAL INFORMATION: Pain. COMPARISON: None available. TECHNIQUE: AP and lateral views of the right knee. FINDINGS: Bony alignment and mineralization are normal. The lateral, medial and patellofemoral joint space compartments are well-maintained. There is very mild peripheral osteophyte formation of the lateral joint space compartment, and moderate osteoarthritic change is seen of the medial and patellofemoral joint space compartments. No fracture, dislocation or joint effusion is seen. There is an enthesophyte arising from the upper pole of the patella. No foreign body is seen. XR/XR knee LT 2V IMPRESSION: 1. There is moderate peripheral osteophyte formation of the medial and patellofemoral joint space compartments of the right knee, and very mild osteoarthritic change is seen of the lateral joint space compartment. 2. No fracture, dislocation or joint effusion is seen. EXAMINATION: XR KNEE, LEFT CLINICAL INFORMATION: Pain. COMPARISON: None available. TECHNIQUE: AP and lateral views of the left knee. FINDINGS: Bony alignment and mineralization are normal. The lateral and medial joint space compartments are well-maintained and show mild peripheral osteophyte formation. There is marked narrowing of the patellofemoral compartment, with peripheral osteophyte formation. No fracture or dislocation is seen. There is a small joint effusion. No foreign body is seen. IMPRESSION: 1. There is tricompartment osteoarthritic change of the left knee, most pronounced of the patellofemoral compartment, where degenerative change is marked. 2. There is a small joint effusion.
== END 2023-08-01 16:05 | disposition home or self-care (01) ==
LOC: HO.XRAY 16:04
PROVIDERS: PCP Internal Medicine; Visit Provider Internal Medicine
DX: M25.561 Pain in right knee (principal); M25.562 Pain in left knee
CPT/HCPCS: 73560

== ENCOUNTER 2023-08-11 17:58 | Emergency (ER) | payer OTHER, SELFPAY ==
--- NOTE | ~2023-08-11 | CT_ITS ---
EXAMINATION: CT CHEST WITHOUT CONTRAST CLINICAL INFORMATION: Dyspnea; clinical question of sarcoidosis. COMPARISON: Chest radiographs dated 06/12/2023. TECHNIQUE: Multidetector volumetric CT imaging of the chest was done. Axial MIP volume rendering provided. Sagittal and coronal reformatted images were obtained. This CT examination was performed using dose optimization techniques as appropriate, variously including the following: *Automated exposure control *Adjustment of mA and/or kV according to patient size (this includes techniques or standardized protocols for targeted exams where dose is matched to indication/reason for exam; i.e. extremities or head) *Use of iterative reconstruction technique DLP: 588 mGy-cm FINDINGS: QUALITY LAB TECHNICIAN: The lungs are symmetrically well-expanded and grossly clear. LUNGS: The lungs are clear with no evidence of inflammation or noncalcified nodules. A tiny benign, calcified granuloma is incidentally noted within the posterior basal segment of the left lower lobe (4:283). There are foci of minor scar/subsegmental atelectasis within the lingula and right middle lobe, without associated focal airway obstruction. No small airway thickening is seen. The central airways appear patent. MEDIASTINUM: The thyroid is unremarkable. There is mild residual thymus. No mediastinal or hilar lymphadenopathy is seen. There is no thoracic aneurysm. CORONARY ARTERY CALCIFICATION: None visualized on this study. PLEURA: There is no pleural effusion. No pleural mass or thickening. AXILLA: No lymphadenopathy. UPPER ABDOMEN: Unremarkable. OSSEOUS STRUCTURES: There is multi-level marked thoracolumbar spondylosis, with an appearance suggesting possible DISH (diffuse idiopathic skeletal hyperostosis). At T8-T9 through T11-T12, there is degenerative disc disease, with vacuum phenomenon. No acute or aggressive osseous findings is noted. CT/CT chest wo IV con IMPRESSION: 1. No noncalcified nodule, mass, infiltrate or groundglass opacity is seen. 2. There are foci of minor scar/subsegmental atelectasis within the lingula and right middle lobe, without associated focal airway obstruction. 3. No thoracic lymphadenopathy or pleural effusion is seen. 4. There is no aggressive osseous lesion. Skeletal findings suggest possible DISH Fleischner guidelines were followed.
--- NOTE | ~2023-08-11 | XR_ITS ---
EXAMINATION: XR TIBIA AND FIBULA, RIGHT CLINICAL INFORMATION: Leg swelling COMPARISON: None available. TECHNIQUE: AP and lateral views of the right tibia and fibula were obtained. FINDINGS: No fracture. No osseous lesions. There is atherosclerotic calcification. Degenerative disease of the knee. Diffuse soft tissue swelling. XR/XR tibia fibula RT 2V IMPRESSION: Diffuse soft tissue swelling.
--- NOTE | ~2023-08-11 | US_ITS ---
EXAMINATION: US VENOUS ULTRASOUND WITH DOPPLER LOWER EXTREMITY, BILATERAL CLINICAL INFORMATION: Swelling, evaluate for DVT COMPARISON: None available. TECHNIQUE: Ultrasound of the deep veins is performed from the hip to the calf with compression sonography and color and pulse Doppler assessment. Spectral analysis with color-flow imaging is performed. FINDINGS: RIGHT: There is normal venous compression and respiratory variation and augmented flow. The visualized common femoral vein, superficial femoral vein, profunda femoral vein, popliteal vein, and the trifurcation region shows no evidence of deep venous thrombosis. There is no significant popliteal fossa cyst. LEFT: There is normal venous compression and respiratory variation and augmented flow. The visualized common femoral vein, superficial femoral vein, profunda femoral vein, popliteal vein, and the trifurcation region shows no evidence of deep venous thrombosis. There is no significant popliteal fossa cyst. If the patient's symptoms persist, followup ultrasound in 5 days 7 days might be of value to exclude proximal propagation from a non-visualized calf vein. US/US venous duplex LE BI IMPRESSION: No DVT demonstrated in the bilateral lower extremity.
--- NOTE | ~2023-08-11 | XR_ITS ---
EXAMINATION: XR TIBIA AND FIBULA, LEFT CLINICAL INFORMATION: Leg swelling COMPARISON: None available. TECHNIQUE: AP and lateral views of the left tibia and fibula were obtained. FINDINGS: No fracture. No osseous lesions. There is atherosclerotic calcification. Degenerative disease of the knee. Diffuse soft tissue swelling. XR/XR tibia fibula LT 2V IMPRESSION: Diffuse soft tissue swelling.
[2023-08-11 18:18] VITALS: BP 131/76; PULSE 92; RESP 20; TEMP 36.6; O2SAT 98; BMI 43.3
--- NOTE | 2023-08-11 18:21 | ED.GENADULT ---
HPI - General Adult General Chief complaint: Extremity Problem Stated complaint: left leg swelling and pain Time Seen by Provider: 08/11/23 19:32 Source: patient and old records reviewed Mode of arrival: ambulatory Limitations: no limitations History of Present Illness HPI narrative: 58 yo female with PMH of asthma, HLD, DM, HTN, notes since yesterday bilateral leg swelling and pain L > R. Has tender nodules that are new as well on both shins. Has aches and pain and feet are sore. She has RA and vitiligo but is not on medications for them. Denies sore throat, no recent URI since June dx of bronchitis. She has not traveled or had anything like this before. No sore throat, no hx of sarcoidosis. MD complaint: leg swelling, pain, lesions Onset (ago): day(s) (1) Location: left, right and lower extremity Radiation: non-radiation Severity: moderate Quality: aching and dull Pain Consistency: constant Relieving factors: none Exacerbating factors: movement Associated symptoms: other (skin lumps, lower ext swelling) Treatments prior to arrival: none Related Data Previous Rx's ?Medication ?Instructions ?Recorded albuterol sulfate 90 mcg/actuation 1 inh inhalation QID PRN shortness 04/06/22 aerosol inhaler of breath or wheezing #8.5 grams blood sugar diagnostic (FreeStyle #100 ea 08/13/22 Lite Strips) blood-glucose meter (FreeStyle #1 ea 08/13/22 Lite Meter kit) lancets 28 gauge (FreeStyle #100 ea 08/13/22 Lancets) hydrochlorothiazide 25 mg tablet 25 mg PO DAILY 90 days #90 tabs 03/12/23 tirzepatide 2.5 mg/0.5 mL 2.5 mg (0.5 mL) subcut QWEEK 4 07/30/23 subcutaneous pen injector weeks #2 mL (Ramon) Allergies Allergy/AdvReac Type Severity Reaction Status Date / Time Kiglvlr-AMA-VyJ Reductase AdvReac Intermediate myalgia Verified 08/11/23 18:21 Inhibitor lisinopril AdvReac Intermediate Cough Uncoded 07/30/23 16:47 trulicity AdvReac Intermediate knee pain Uncoded 07/30/23 16:51 Review of Systems Review of Systems: Constitutional : No Fever, No Chills ENT/Mouth : No Ear Pain, No Hoarseness, No sore throat Eyes: No Eye Pain, No Swelling, No Redness, No Foreign Body Cardiovascular : No Chest Pain, No SOB, pos edema Respiratory : No Cough, No Dyspnea Gastrointestinal : No Nausea, No Vomiting, No Diarrhea, No abdominal Pain Genitourinary : No Dysuria, No Hematuria Musculoskeletal : positive joint pain, pos Myalgias, pos Joint Swelling Skin : pos Skin lesions, No rash Neuro : No Weakness, No Numbness, No Loss of Consciousness, No Dizziness, No Headache Psych : No Anxiety/Panic, No Depression Heme/Lymph: no easy bruising, no Lymphadenopathy Endocrine : No Polyuria, No Polydipsia All other systems reviewed and are negative PMFSH Past Medical History Attestation statement: The following information was validated with the patient. 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 Family history of gastric cancer Family history of colorectal cancer Hepatitis C Surgical History History of bilateral breast reduction surgery History of hysterectomy History of clubfoot correction History of carpal tunnel surgery History of Family History Family History Mother Diabetes CHF (congestive heart failure) Stroke Father Colon cancer Stroke Family/Other Substance use disorder Cancer Other Arthritis Social History Social History Household Members: Family Household Members Other:: Homeless Housing: House Alcohol intake: current Alcohol intake frequency: holidays/special occasions only Alcohol type: beer Patient Tobacco Use Status: Former Tobacco user Tobacco use type: Cigarette e-Cigarette/Vaping Use: Never Used Second Hand Smoke Exposure: No Advance Directives: No Advance Directives Information Provided: No service: No Current occupational status: employed 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 Oriented X3. No acute distress. Eyes: Pupils equal, round and reactive to light. ENT: Pharynx normal. Neck: Normal inspection. Neck supple. CVS: Normal heart rate and rhythm. Pulses normal. Respiratory: No respiratory distress. Breath sounds normal. Abdomen: Soft and nontender. Skin: Skin warm and dry. Normal skin color. Normal skin turgor. Extremities:bilateral 1+ pitting edema and pain most swelling to ankles and mid shins has bilateral mild joint effusions of both knees - both pulses intact on each salgado are firm non mobile darkened round nodules that are ttp Neuro: Oriented X 3. No motor deficit. No sensory deficit. Course Course Course Narrative: RME: 58 yold female presents to the ED for left leg swelling and pain with calf pain. Right leg also swollen, but left is more swollen. Labs US, xray ordered Medical Decision Making Medical Decision Making [facility] Narrative: 58 yo female with PMH of asthma, HLD, DM, HTN, here with c/o tender nodules on both shins, swollen joints, leg edema but no CP/SOB she has hx of RA and vitiligo but not on medications at this time will need labs, ESR, CRP, BNP - DVT study. I am going to obtain CT scan for signs of sarcoidosis. She has normal pulses, no signs of GAS pharyngitis. Differential Diagnosis Differential Diagnoses: The differential diagnosis associated with the presentation includes swelling, chf though no CP/SOB, sarcoidosis, autoimmune issue has no abdominal pain swelling, GI or issues to suggest intraabdominal issue Admission/Observation Consideration of admission/observation: Escalation of care including admission/observation considered labs stable normal VS Lab Data [facility] Lab Attestation statement: I reviewed the patient's lab results. 08/11/23 19:24 08/11/23 19:24 Labs: Lab Results 08/11/23 Range/Units 19:24 WBC 9.4 (4.8-10.8) X10*3/uL RBC 4.24 (4.20-5.50) X10*6/uL Hgb 12.9 (12.0-16.0) g/dl Hct 39.8 (37.0-47.0) % MCV 93.9 (80.0-98.0) fL MCH 30.4 (27.0-33.0) pg MCHC 32.4 (31.0-35.0) g/dl RDW 13.6 (11.0-16.0) % Plt Count 246 (160-400) X10*3/uL MPV 9.2 L (9.4-12.3) fL Immature Gran % (Auto) 0.2 (0.0-0.4) % Neut % (Auto) 55.6 (45-73) % Lymph % (Auto) 36.7 (20-40) % [place] % (Auto) 5.6 (2-11) % Eos % (Auto) 1.7 (0-4) % Baso % (Auto) 0.2 (0-2) % Lymph # (Auto) 3.5 (1.2-4.9) X10*3/uL [place] # (Auto) 0.5 (0.1-1.2) X10*3/uL Eos # (Auto) 0.2 (0.0-0.4) X10*3/uL Baso # (Auto) 0.0 (0.0-0.2) X10*3/uL Abs Immat Gran (auto) 0.02 (0.00-0.03) X10*3/uL Absolute Neuts (auto) 5.3 (2.0-8.3) x10*3/uL Absolute Nucleated RBC 0.000 (0.0-0.012) X10*3/uL Nucleated RBC % (auto) 0.0 (0.0-0.2) /100WBC ESR 11 (0-20) MM/HR Hold Purple Top Cancelled PT 11.6 (11.1-13.3) SEC INR 1.0 (0.9-1.1) APTT 23.5 L (26.0-36.8) SEC Sodium 142 (135-145) mmol/L Potassium 3.7 (3.3-5.1) mmol/L Chloride 106 (96-108) mmol/L Carbon Dioxide 26 (22-29) mmol/L Anion Gap 14 (12-20) BUN 25 H (9-16) mg/dL Creatinine 0.81 (0.5-1.4) mg/dL Estim Creat Clear Calc 99.6 Estimated GFR > 60 Random Glucose 212 H (60-115) mg/dL Calcium 9.6 (8.4-10.2) mg/dL Total Bilirubin 0.3 (0.0-1.0) mg/dL AST 15 (5-31) U/L ALT 16 (0-31) U/L Alkaline Phosphatase 52 (39-117) U/L Total Creatine Kinase 250 H (26-140) U/L C-Reactive Protein 0.38 (< or = 0.50) mg/dL B-Natriuretic Peptide 11 (<100) pg/mL Total Protein 7.6 (6.5-8.0) g/dL Albumin 4.4 (3.5-5.0) g/dL Independent Interpretation I performed an independent interpretation of an: Plain X-Ray (no trauma) and Ultrasound (no DVT) Radiology Impression Discussion of test interpretation with radiology: I have reviewed the radiologist's reading. External Record Review External record reviewed: Inpatient record and Outpatient record Prescription Management I considered prescription management with: Pain Medication and Other Discharge Plan Discharge Clinical Impression: Erythema nodosum Acute leg pain Qualifiers: Laterality: unspecified laterality Qualified Code(s): M79.606 - Pain in leg, unspecified Patient Disposition: Still a Patient Instructions: Leg Pain (ED) Prescriptions: No Action hydrochlorothiazide 25 mg tablet 25 mg PO DAILY 90 Days Qty: 90 1RF albuterol sulfate 90 mcg/actuation HFA aerosol inhaler 1 inh inhalation QID PRN (Reason: shortness of breath or wheezing) Qty: 8.5 0RF (DME) blood-glucose meter [FreeStyle Lite Meter] Kit See Rx Instructions .Route Qty: 1 0RF Rx Instructions: As directed (DME) FreeStyle Lite Strips Strip See Rx Instructions .Route Qty: 100 3RF Rx Instructions: Use 1 test strip once a day (DME) lancets [FreeStyle Lancets] 28 gauge misc See Rx Instructions .Route Qty: 100 3RF Rx Instructions: Use 1 lancet once a day Mounjaro 2.5 mg/0.5 mL pen injector 2.5 mg subcut QWEEK 28 Days Qty: 2 0RF Print Language: Slovenian
[2023-08-11 19:36] LABS: MANUAL DIFF FLAG NO
[2023-08-11 19:37] LABS: Basophils Percent Auto 0.2 % (0-2); Eosinophils Absolute Auto 0.2 X10*3/uL (0.0-0.4); Eosinophils Percent Auto 1.7 % (0-4); Hematocrit 39.8 % (37.0-47.0); Hemoglobin 12.9 g/dl (12.0-16.0); Imm Gran Abs Auto 0.02 X10*3/uL (0.00-0.03); Imm Gran Pct Auto 0.2 % (0.0-0.4); Lymphocytes Absolute Auto 3.5 X10*3/uL (1.2-4.9); Lymphocytes Percent Auto 36.7 % (20-40); Mean Corpuscular HGB Conc 32.4 g/dl (31.0-35.0); Mean Corpuscular Hemoglobin 30.4 pg (27.0-33.0); Mean Corpuscular Volume 93.9 fL (80.0-98.0); Mean Platelet Volume 9.2 fL (9.4-12.3); Monocytes Absolute Auto 0.5 X10*3/uL (0.1-1.2); Monocytes Percent Auto 5.6 % (2-11); Neutrophils Absolute Auto 5.3 x10*3/uL (2.0-8.3); Neutrophils Percent Auto 55.6 % (45-73); Platelet Count 246 X10*3/uL (160-400); Prothrombin Time 11.6 SEC (11.1-13.3); Red Blood Count 4.24 X10*6/uL (4.20-5.50); Red Cell Distribution Width 13.6 % (11.0-16.0); White Blood Count 9.4 X10*3/uL (4.8-10.8)
[2023-08-11 19:42] LABS: Partial Thromboplastin Time 23.5 SEC (26.0-36.8)
[2023-08-11 19:48] LABS: Alanine Aminotransferase 16 U/L (0-31); Albumin Level 4.4 g/dL (3.5-5.0); Alkaline Phosphatase 52 U/L (39-117); Anion Gap 14 (12-20); Aspartate Amino Transferase 15 U/L (5-31); Bilirubin Total 0.3 mg/dL (0.0-1.0); Blood Urea Nitrogen 25 mg/dL (9-16); C Reactive Protein 0.38 mg/dL (< or = 0.50); Calcium 9.6 mg/dL (8.4-10.2); Carbon Dioxide 26 mmol/L (22-29); Chloride 106 mmol/L (96-108); Creatinine Clr Calc Pharmacy 99.6; Estimated Glomerular Filt Rate > 60; Glucose Random 212 mg/dL (60-115); Potassium 3.7 mmol/L (3.3-5.1); Sodium 142 mmol/L (135-145); Total Protein 7.6 g/dL (6.5-8.0)
[2023-08-11 19:53] LABS: B Type Natriuretic Peptide 11 pg/mL (<100)
[2023-08-11 20:07] LABS: Erythrocyte Sedimentation Rate 11 MM/HR (0-20)
[2023-08-11 20:37] VITALS: BP 150/55; PULSE 99; RESP 12; TEMP 36.7; O2SAT 99
[2023-08-11 22:33] VITALS: BP 133/72; PULSE 77; RESP 16; TEMP 36.8; O2SAT 97
[2023-08-12 05:49] VITALS: BP 133/72; PULSE 77; RESP 16; TEMP 36.8; O2SAT 97
== END 2023-08-12 05:51 | disposition home or self-care (01) ==
PROVIDERS: Emergency Medicine; Physician Assistant; Emergency Provider Emergency Medicine; PCP Internal Medicine
DX: L52 Erythema nodosum (principal); M79.605 Pain in left leg; M79.89 Other specified soft tissue disorders; E11.9 Type 2 diabetes mellitus without complications; I10 Essential (primary) hypertension
CPT/HCPCS: 36415; 71250; 73590; 80053; 82550; 83880; 85025; 85610; 85652; 85730; 86140; 93970; 99283; 99284

== ENCOUNTER 2023-08-13 11:09 | Outpatient (AMB) | payer OTHER, SELFPAY ==
--- NOTE | 2023-08-13 11:13 | A.OFFVIS_ITS ---
Intake Vital Signs 08/13/23 11:15 Height 5 ft 5 in Weight 266 lb 5.094 oz BMI 44.3 BP 146/62 H Blood Pressure Location Rt brachial Position Sitting Pulse 89 Pulse Source Pulse Oximeter Pulse Oximetry (%) 98 Oxygen Delivery Method Room Air Intake Visit Reasons: Erythema nodosum/ED REF Intake Note: New pt presents today for consult, internally referred by ED. She was seen for bl leg pain and swelling. C/o pain in bl knees, calves and shins; worse on left. [employer] Required: No Accompanied by: Self / Same As Patient Allergies Bbinxzk-YUZ-UeL Reductase Inhibitor Adverse Reaction (Intermediate, Verified 08/13/23 11:21) myalgia lisinopril Adverse Reaction (Intermediate, Uncoded 08/13/23 11:21) Cough trulicity Adverse Reaction (Intermediate, Uncoded 08/13/23 11:21) knee pain Medication List - Last Reconciled 08/13/23 by Prashant Collins MD albuterol sulfate 90 mcg/actuation 1 inh inhalation QID PRN blood sugar diagnostic (FreeStyle Lite Strips) Use 1 test strip once a day blood-glucose meter (FreeStyle Lite Meter kit) As directed hydrochlorothiazide 25 mg PO DAILY 90 days ibuprofen 600 mg PO TID PRN lancets (FreeStyle Lancets) Use 1 lancet once a day prednisolone sodium phosphate 10 mg PO DAILY tirzepatide (Mounjaro) 2.5 mg (0.5 mL) subcut QWEEK 4 weeks HPI HPI Comments History of Present Illness Details This is a 58-year-old female who presents for evaluation of a suspected erythema nodosum. Patient stated that for the last 4 weeks she has been having diffuse swelling of both her lower extremities extending from her hips all the way into her feet. She has been having bilateral knee pain, especially with movement such as leaning on her knees. She states that she has been taking ibuprofen but it causes stomach upset. So she takes plenty of Tylenol with this relief. She went to the emergency room 2 days ago due to mildly painful swelling on her left salgado. In the ER erythema nodosum was suspected and patient was discharged on prednisone. She has not picked up the prednisone yet. She was evaluated by Dr. Whitman last year for a positive LYDIA. This was in the context of bilateral hand arthritis. She stated that she had left 3rd finger DIP swelling, the swelling seems to have resolved but she continues to have disfigurement. No autoimmune rheumatic disease was diagnosed around that time. She continues to have some mild pain in her hand joints. Associated with morning stiffness. She has history of vitiligo for many years. She denies any history of DVT/PE. 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 Family history of gastric cancer Family history of colorectal cancer Hepatitis C Surgical History History of bilateral breast reduction surgery History of hysterectomy History of clubfoot correction History of carpal tunnel surgery History of Family History Mother Diabetes CHF (congestive heart failure) Stroke Father Colon cancer Stroke Family/Other Substance use disorder Cancer Other Arthritis Social History Household Members: Family Household Members Other:: Homeless Housing: House Alcohol intake: current Alcohol intake frequency: holidays/special occasions only Alcohol type: beer Patient Tobacco Use Status: Former Tobacco user Tobacco use type: Cigarette e-Cigarette/Vaping Use: Never Used Second Hand Smoke Exposure: No service: No Current occupational status: employed Current occupation: [employer] Current occupational exposures/hazards: No Cognitive needs: No Hearing needs: No Vision needs: Yes Female Reproductive History Menstrual Total pregnancies: 7 Full term: 3 Ab induced: 4 Review of Systems Const Denies fever(s) and Denies weight loss Musc Reports deformity, Reports arthralgias, Reports joint swelling and Reports stiffness Skin/Breast Reports lesions and Reports skin pain Physical Exam Vital Signs: Last Vital Signs Pulse 89 08/13/23 11:15 BP 146/62 H 08/13/23 11:15 Pulse Ox 98 08/13/23 11:15 Oxygen Delivery Method Room Air 08/13/23 11:15 BMI result Body Mass Index 44.3 Const General: cooperative, healthy appearing and comfortable Nutritional Appearance: obese morbidly obese Orientation/consciousness: patient oriented x3 Limitations: no limitations HEENT Head: Yes normocephalic and Yes atraumatic Resp Effort & Inspection: normal respiratory effort and able to speak in complete sentences Auscultation: clear to auscultation bilaterally Cardio Rate: regular rate Skin Other: A couple of circular swellings, 1 in the left mid salgado on the lateral aspect, the other 1 under lower lateral aspect of left salgado. The lower 1 is mildly tender Neuro General: patient oriented x3 Extrem Other: Generalized soft tissue swelling of shins, ankles and feet minimally warm Bilateral knee pain with range of motion Mild osteoarthritic changes both hands but significant enlargement and disfigurement of left 3rd DIP Minimal tenderness of both wrists, and pain with flexion and extension of wrists. Minimal tenderness of PIPs Normal nailfold capillaroscopy Results Reviewed Results Reviewed: Ordering Physician: Sasha Jerome DO Date of Service: 08/11/23 Procedure(s): CT chest wo IV con Accession Number(s): [id number] cc: Sasha Jerome DO; Lydia Gray MD~ ADDENDUM ADDENDUM: There is residual thymic tissue. Within the thymus (2:23), a 1.5 x 0.7 cm focal nodule is seen. The possibility of a thymic neoplasm such as a thymoma is raised. Recommend thymic MRI (with and without contrast and to include in and out of phase imaging). No pulmonary nodularity, solid or groundglass opacity, fibrosis or cyst formation is seen to suggest sarcoidosis. There is no pleural effusion or lymphadenopathy. A preliminary report was provided by the [facility] on 08/12/2023. Addendum Dictated By: Nahid Wilson MD Addendum Signed By:? <Electronically signed by Nahid Wilson MD in [place]> 08/12/23 1543 Addendum Cosigned By: DD/ /26/2000 TD/TT: / EXAMINATION:? CT CHEST WITHOUT CONTRAST CLINICAL INFORMATION:? Dyspnea; clinical question of sarcoidosis.?? COMPARISON:? Chest radiographs dated 06/12/2023. TECHNIQUE:? Multidetector volumetric CT imaging of the chest was done. Axial MIP volume rendering provided. Sagittal and coronal reformatted images were obtained.?? This CT examination was performed using dose optimization techniques as appropriate, variously including the following: *Automated exposure control *Adjustment of mA and/or kV according to patient size (this includes techniques or standardized protocols for targeted exams where dose is matched to indication/reason for exam; i.e. extremities or head) *Use of iterative reconstruction technique DLP: 588 mGy-cm FINDINGS: HEATER HELPER FORGE: The lungs are symmetrically well-expanded and grossly clear. LUNGS: The lungs are clear with no evidence of inflammation or noncalcified nodules. A tiny benign, calcified granuloma is incidentally noted within the posterior basal segment of the left lower lobe (4:283). There are foci of minor scar/subsegmental atelectasis within the lingula and right middle lobe, without associated focal airway obstruction. No small airway thickening is seen. The central airways appear patent. MEDIASTINUM: The thyroid is unremarkable. There is mild residual thymus. No mediastinal or hilar lymphadenopathy is seen. There is no thoracic aneurysm. CORONARY ARTERY CALCIFICATION: None visualized on this study. PLEURA: There is no pleural effusion. No pleural mass or thickening.?? AXILLA: No lymphadenopathy.?? UPPER ABDOMEN: Unremarkable.?? OSSEOUS STRUCTURES: There is multi-level marked thoracolumbar spondylosis, with an appearance suggesting possible DISH (diffuse idiopathic skeletal hyperostosis). At T8-T9 through T11-T12, there is degenerative disc disease, with vacuum phenomenon. No acute or aggressive osseous findings is noted.?? CT/CT chest wo IV con IMPRESSION:? ? 1. No noncalcified nodule, mass, infiltrate or groundglass opacity is seen. ? 2. There are foci of minor scar/subsegmental atelectasis within the lingula and right middle lobe, without associated focal airway obstruction. ? 3. No thoracic lymphadenopathy or pleural effusion is seen. ? 4. There is no aggressive osseous lesion. Skeletal findings suggest possible DISH ? Fleischner guidelines were followed. Dictated By: Nahid Wilson MD Signed By: <Electronically signed by Nahid Wilson MD in [place]> 08/11/23 0785 US/US venous duplex LE BI IMPRESSION:? No DVT demonstrated in the bilateral lower extremity. Ordering Physician: Edison Castillo Date of Service: 08/11/23 Procedure(s): XR tibia fibula LT 2V Accession Number(s): [id number] cc: Edison Castillo; Lydia Gray MD~ EXAMINATION:? XR TIBIA AND FIBULA, LEFT CLINICAL INFORMATION:? Leg swelling?? COMPARISON:? None available.?? TECHNIQUE:? AP and lateral views of the left tibia and fibula were obtained. FINDINGS:? No fracture. No osseous lesions. There is atherosclerotic calcification. Degenerative disease of the knee. Diffuse soft tissue swelling. XR/XR tibia fibula LT 2V IMPRESSION: Diffuse soft tissue swelling. ? XR/XR knee LT 2V IMPRESSION: ? 1. There is moderate peripheral osteophyte formation of the medial and patellofemoral joint space compartments of the right knee, and very mild osteoarthritic change is seen of the lateral joint space compartment. ? 2. No fracture, dislocation or joint effusion is seen. ? ? EXAMINATION:? XR KNEE, LEFT? ? CLINICAL INFORMATION:? Pain.?? ? COMPARISON:? None available.?? ? TECHNIQUE:? AP and lateral views of the left knee. ? FINDINGS: Bony alignment and mineralization are normal. The lateral and medial joint space compartments are well-maintained and show mild peripheral osteophyte formation. There is marked narrowing of the patellofemoral compartment, with peripheral osteophyte formation. No fracture or dislocation is seen. There is a small joint effusion. No foreign body is seen.?? ? IMPRESSION: ? 1. There is tricompartment osteoarthritic change of the left knee, most pronounced of the patellofemoral compartment, where degenerative change is marked. ? 2. There is a small joint effusion. ? ? ?Ordering Physician: Lydia Gray MD Date of Service: 08/21/22 Procedure(s): XR hand LT 2V Accession Number(s): [id number] cc: Lydia Gray MD~ EXAMINATION:? Bilateral hand x-ray CLINICAL INFORMATION:? Pain?? COMPARISON:? None.?? TECHNIQUE:? 3 views of each hand?? FINDINGS: Right: Bone alignment is normal. No fracture or dislocation. Normal joint spaces. Normal soft tissues. Left: Bone alignment is normal. No fracture or dislocation. 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 Joint spaces are otherwise normal. Soft tissues are normal.?? XR/XR hand LT 2V IMPRESSION: Right: Unremarkable exam ? Left: Osteoarthritis at the DIP joints.?? Assessment & Plan Assessment & Plan (1) Erythema nodosum: Code(s): L52 - Erythema nodosum Plan: This is a 58-year-old female with history of vitiligo who presents for evaluation of suspected erythema nodosum. Previous labs showed a positive LYDIA. On exam she has a couple of palpable mildly tender masses on her left salgado. I referred patient to general surgery for a biopsy. Will order comprehensive serology to screen for underlying autoimmune rheumatic disease. Prednisone was prescribed by the emergency physician. Advised patient to take it right after the biopsy Follow-up after biopsy Plan I spent 49 minutes reviewing patient's chart, evaluating patient, ordering diagnostic workup, counseling patient and documenting in the chart Orders: Orders Anti DNA DS Antibody Today M32.9 - Systemic lupus erythematosus, unspecified Complement C4 Today M32.9 - Systemic lupus erythematosus, unspecified DNA Double Stranded-Crithidia Today M32.9 - Systemic lupus erythematosus, unspecified Protein Creatinine Ratio, Ur Today M32.9 - Systemic lupus erythematosus, unspecified Sjogren's Antibodies Today M32.9 - Systemic lupus erythematosus, unspecified UA w Microscopic Today M32.9 - Systemic lupus erythematosus, unspecified T Spot TB Today Z11.7 - Encounter for testing for latent tuberculosis infection Angiotensin Converting Enzyme Today D86.9 - Sarcoidosis, unspecified ANCA Vasculitides Today I77.6 - Arteritis, unspecified Cyclic Citrullinated Peptide Today M25.50 - Pain in unspecified joint Beta-2 Glycoprotein Antibody Today D68.61 - Antiphospholipid syndrome Anti Extractable Nuclear Ag Today M32.9 - Systemic lupus erythematosus, unspecified Complement C3 Today M32.9 - Systemic lupus erythematosus, unspecified C Reactive Protein Today M32.9 - Systemic lupus erythematosus, unspecified Erythrocyte Sedimentation Rate Today M32.9 - Systemic lupus erythematosus, unspecified Hepatitis A,B,C Profile Today Z11.59 - Encounter for screening for other viral diseases HLA B27 Today M45.9 - Ankylosing spondylitis of unspecified sites in spine HLA B51 Behcet's Disease Today M35.2 - Behcet's disease Lysozyme, Serum Today D86.9 - Sarcoidosis, unspecified Vitamin D 1,25 dihydroxy Today D86.9 - Sarcoidosis, unspecified Vitamin D 25-OH (D2 and D3) Today D86.9 - Sarcoidosis, unspecified Cardiolipin Antibodies Today D68.61 - Antiphospholipid syndrome Lupus Anticoagulant Panel Today D68.61 - Antiphospholipid syndrome Scleroderma 12 Panel Today M34.9 - Systemic sclerosis, unspecified Referrals General Surgery Referral L52 - Erythema nodosum Coding Level of Care Code New Pt Level 4 (43335) Diagnoses Erythema nodosum L52
[2023-08-13 11:15] VITALS: BP 146/62; PULSE 89; O2SAT 98; BMI 44.3
== END 2023-08-13 12:02 | disposition home or self-care (01) ==
PROVIDERS: PCP Internal Medicine; Visit Provider Student in an Organized Health Care Education/Training Program
DX: L52 Erythema nodosum (principal)
CPT/HCPCS: 99204

== ENCOUNTER 2023-08-13 11:09 | Outpatient (REF) | payer OTHER, SELFPAY ==
[2023-08-13 13:22] LABS: C Reactive Protein 0.34 mg/dL (< or = 0.50)
[2023-08-13 13:31] LABS: Erythrocyte Sedimentation Rate 14 MM/HR (0-20)
[2023-08-13 14:28] LABS: Appearance Urine Cloudy; Color Urine Yellow; Glucose Urine UA Negative (Negative); Leukocyte Esterase Urine Negative (Negative); Nitrite Urine Negative (Negative); Specific Gravity - Urine 1.025 (1.005-1.025); Urine Blood Negative (Negative); Urine Ketones Negative (Negative); Urine Protein Negative (Neg-Trace)
[2023-08-13 14:34] LABS: Bacteria Urine 1+ (None Seen); Hyaline Casts Urine 0-2 /LPF (0-2); RBC Urine 0-2 /HPF (0-2); WBC Urine 0-5 /HPF (0-5)
[2023-08-13 15:13] LABS: Creatinine Urine 135.65 mg/dL; Protein/Creatinine Ratio, Ur 0.06 (<0.2); Total Protein Urine Random 8 mg/dL (<12)
[2023-08-14 04:57] LABS: HBsAGNum1 0.44 S/CO (0.00-0.99); Hepatitis A Antibody IgM 0.15 Index (0-0.79); Hepatitis B Core Antibody Nonreactive (Nonreactive); Hepatitis B Surface Antigen Negative (Negative); ~HepC Num1 0.11 S/CO (0.00-0.79); ~Hepatitis A Antibody IgM Nonreactive (Nonreactive); ~Hepatitis B Surface Antibody REACTIVE (Nonreactive); ~Hepatitis C Antibody Nonreactive (Nonreactive)
[2023-08-14 09:28] LABS: Complement C3 46 mg/dL (83-193)
[2023-08-15 13:43] LABS: Anti DNA DS Antibody 1 IU/mL; Antibody to SS-A Antigen <1.0 NEG AI (<1.0 NEG); Antibody to SS-B Antigen <1.0 NEG AI (<1.0 NEG); Myeloperoxidase Antibody <1.0 AI; Proteinase 3 PR3 Antibodies <1.0 AI; SM/Ribonucleoprotein Ab <1.0 NEG AI (<1.0 NEG); Smith Protein <1.0 NEG AI (<1.0 NEG)
[2023-08-15 14:43] LABS: Cyclic Citrullinated Peptide 157 UNITS
[2023-08-15 22:18] LABS: TS Negative Control Passed; TS Panel A 0; TS Panel B 0; TS Positive Control Passed; TSpotTB Negative (Negative)
[2023-08-16 05:18] LABS: DNAds, Crithidia Antibody Negative (Negative)
[2023-08-17 14:58] LABS: HLA B27 Negative (Negative)
[2023-08-18 01:54] LABS: Angiotensin Converting Enzyme 15 U/L (9-67)
[2023-08-18 09:23] LABS: VITAMIN D (1,25 OH) D3 43 pg/mL; Vit D (1,25-Dihydroxy) Total 43 pg/mL (18-72); Vitamin D (1,25 OH) D2 <8 pg/mL
[2023-08-18 15:14] LABS: Vitamin D 25-OH, D2 <4 ng/mL; Vitamin D 25-OH, D3 10 ng/mL; Vitamin D 25-OH, Total 10 ng/mL (30-100)
[2023-08-20 15:43] LABS: HLA B51 B-2 B*81; HLA B51 B-2 Equivalent B81; HLA B51 Comments See Comments; HLA B51 Method PCR SSOP
[2023-08-22 20:18] LABS: Lysozyme, Serum 4.8 mcg/mL (5.0-11.0)
== END 2023-08-13 11:10 | disposition home or self-care (01) ==
LOC: HO.LAB 11:09
PROVIDERS: PCP Internal Medicine; Visit Provider Student in an Organized Health Care Education/Training Program
DX: Z11.7 Encounter for testing for latent tuberculosis infection (principal); Z11.59 Encounter for screening for other viral diseases; M32.9 Systemic lupus erythematosus, unspecified; D86.9 Sarcoidosis, unspecified; M25.50 Pain in unspecified joint; M45.9 Ankylosing spondylitis of unspecified sites in spine; I77.6 Arteritis, unspecified; M35.2 Behcet's disease; L52 Erythema nodosum; Z72.89 Other problems related to lifestyle
CPT/HCPCS: 36415; 81001; 81374; 82164; 82306; 82570; 82652; 84156; 85549; 85652; 86021; 86140; 86160; 86200; 86225; 86235; 86255; 86481; 86704; 86706; 86709; 86803; 86812; 87340

== ENCOUNTER 2023-11-15 00:54 | Emergency (ER) | payer OTHER, SELFPAY ==
--- NOTE | ~2023-11-15 | XR_ITS ---
EXAMINATION: XR KNEE, RIGHT CLINICAL INFORMATION: Pain. COMPARISON: None available. TECHNIQUE: Four views of the right knee. FINDINGS: The bone mineralization is normal. There is mild medial and lateral as well as patellofemoral degenerative change with mild loss of joint space, and mild osteophyte formation. There is no fracture. There is no significant joint effusion. The soft tissues are unremarkable. XR/XR knee RT 4V IMPRESSION: Mild tricompartmental degenerative change. No fracture or dislocation is seen.
[2023-11-15 01:54] VITALS: BMI 43.3
[2023-11-15 01:57] VITALS: BP 132/62; PULSE 96; RESP 17; TEMP 36.8; O2SAT 97
--- NOTE | 2023-11-15 05:05 | ED.LOWEXIN ---
HPI - Extremity Injury (Lower) General Chief Complaint: Extremity Injury, Lower Stated Complaint: rt knee pain swelling/painful Time Seen by Provider: 11/15/23 04:57 Source: patient Mode of arrival: ambulatory Limitations: no limitations History of Present Illness ED Provider: Dr. Glenna Starr HPI Narrative: Patient comes to the emergency room complaining of right-sided knee pain for about a week. Patient denies any trauma. Patient states that she is able to walk but it hurts doing so. Patient has been taking ibuprofen 600 mg to help with the pain. Also alternating it with Tylenol. Related Data Previous Rx's ?Medication ?Instructions ?Recorded albuterol sulfate 90 mcg/actuation 1 inh inhalation QID PRN shortness 04/06/22 aerosol inhaler of breath or wheezing #8.5 grams blood sugar diagnostic (FreeStyle #100 ea 08/13/22 Lite Strips) blood-glucose meter (FreeStyle #1 ea 08/13/22 Lite Meter kit) lancets 28 gauge (FreeStyle #100 ea 08/13/22 Lancets) tirzepatide 2.5 mg/0.5 mL 2.5 mg (0.5 mL) subcut QWEEK 4 07/30/23 subcutaneous pen injector weeks #2 mL (Ramon) ibuprofen 600 mg tablet 600 mg PO TID PRN pain #20 tabs 08/12/23 prednisolone sodium phosphate 10 10 mg PO DAILY #5 tabs 08/12/23 mg disintegrating tablet prednisone 10 mg tablet 10 mg PO DAILY 5 days #5 tabs 08/13/23 hydrochlorothiazide 25 mg tablet 25 mg PO DAILY 90 days #90 tabs 08/19/23 acetaminophen 500 mg tablet 500 mg PO Q6H PRN pain #30 tabs 11/15/23 ibuprofen 600 mg tablet 600 mg PO TID PRN pain #30 tabs 11/15/23 Allergies Allergy/AdvReac Type Severity Reaction Status Date / Time [id number] Reductase AdvReac Intermediate myalgia Verified 11/15/23 01:57 Inhibitor lisinopril AdvReac Intermediate Cough Uncoded 11/15/23 01:57 trulicity AdvReac Intermediate knee pain Uncoded 11/15/23 01:57 Review of Systems Review of Systems: Constitutional : No Weight loss, No Fever, No Chills, No Night Sweats, No Fatigue, No Malaise ENT/Mouth : No Hearing loss, No Ear Pain, No Nasal Congestion, No Sinus Pain, No Hoarseness, No sore throat, No Rhinorrhea, No Swallowing Difficulty Eyes: No Eye Pain, No Swelling, No Redness, No Foreign Body, No Discharge, No Vision Changes Cardiovascular : No Chest Pain, No SOB, No Dyspnea on Exertion, No Orthopnea, No Edema, No Palpitations Respiratory : No Cough, No Sputum, No Wheezing, No Smoke Exposure, No Dyspnea Gastrointestinal : No Nausea, No Vomiting, No Diarrhea, No Constipation, No abdominal Pain, No Hematochezia, No Melena Genitourinary : no irregular bleeding, No Dysuria, No Urinary Frequency, No Hematuria, No Urinary Incontinence, No Urgency, No Flank Pain, No Urinary Flow Changes, No Hesitancy Musculoskeletal : Complaining of right knee pain No Myalgias, No Joint Swelling Skin : No Skin Lesions, No rash Neuro : No Weakness, No Numbness, No Paresthesias, No Loss of Consciousness, No Dizziness, No Headache Psych : No Anxiety/Panic, No Depression, No SI/HI/AH/VH, No Social Issues, Heme/Lymph: No Bruising, No Bleeding,No Lymphadenopathy Endocrine : No Polyuria, No Polydipsia, No Temperature Intolerance [facility] Past Medical History Medical History Vitiligo Personal history of nicotine dependence Asthma 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 Family history of gastric cancer Family history of colorectal cancer Hepatitis C Surgical History History of bilateral breast reduction surgery History of hysterectomy History of clubfoot correction History of carpal tunnel surgery History of Family History Family History Mother Diabetes CHF (congestive heart failure) Stroke Father Colon cancer Stroke Family/Other Substance use disorder Cancer Other Arthritis Social History Social History Household Members: Family Household Members Other:: Homeless Housing: House Alcohol intake: current Alcohol intake frequency: holidays/special occasions only Alcohol type: beer Patient Tobacco Use Status: Former Tobacco user Tobacco use type: Cigarette Smoked in Last 30 Days: No e-Cigarette/Vaping Use: Never Used Second Hand Smoke Exposure: No Advance Directives: No Advance Directives Information Provided: Yes Do you have a plan to hurt others: No Plan service: No Current occupational status: employed Current occupation: [employer] Current occupational exposures/hazards: No Cognitive needs: No Hearing needs: No Vision needs: Yes Physical Exam Vital Signs: Vital Signs: Last Vital Signs Temp 98.2 F 11/15/23 01:57 Pulse 96 11/15/23 01:57 Resp 17 11/15/23 01:57 BP 132/62 11/15/23 01:57 Pulse Ox 97 11/15/23 01:57 O2 Del Method Room Air 11/15/23 01:57 BMI result Body Mass Index 43.3 Const: Other: Appearance: Alert. Oriented X3. No acute distress. Eyes: Pupils equal, round and reactive to light. ENT: Pharynx normal. Neck: Normal inspection. Neck supple. No lymph nodes noted. No crepitus CVS: Normal heart rate and rhythm. Pulses normal. Normal S1 and S2 Respiratory: No respiratory distress. Breath sounds normal. No Wheezing. No rales Abdomen: Soft and nontender. No rigidity. No distention. Skin: Skin warm and dry. Normal skin color. Normal skin turgor. Extremities: +1 pitting edema bilaterally, patient wearing compression stockings. Patient able to flex and extend the knee, a bit limited but able to do so painlessly, no additional palpated warmth, no erythema Neuro: Oriented X 3. No motor deficit. No sensory deficit. Moving all extremities. No slurred speech. CN 2 through 12 grossly intact Psych: calm, cooperative, normal affect Medical Decision Making Medical Decision Making MDM Narrative: -my interpretation of chest x-ray: No obvious abnormality, radiology report mild tricompartmental degenerative change -I discussed the physical exam and radiology report with the patient. There is a possibility the patient may have osteoarthritis versus arthritis. Patient is being worked up for autoimmune disorders. -at this time, there is not enough fluid to be removed, septic joint is not suspected -patient instructed to follow-up with her orthopedic surgeon and with rheumatology Differential Diagnosis Differential Diagnoses: The differential diagnosis associated with the presentation includes (Arthritis, osteoarthritis, rheumatoid arthritis, contusion, dislocation of the patella meniscal injury) Independent Interpretation I performed an independent interpretation of an: Plain X-Ray Radiology Impression Discussion of test interpretation with radiology: I have reviewed the radiologist's reading. Radiologist Impression: The bone mineralization is normal. There is mild medial and lateral as well as patellofemoral degenerative change with mild loss of joint space, and mild osteophyte formation. There is no fracture. There is no significant joint effusion. The soft tissues are unremarkable. XR/XR knee RT 4V IMPRESSION: Mild tricompartmental degenerative change. No fracture or dislocation is seen. Discharge Plan Discharge Clinical Impression: Arthritis of knee, right Patient Disposition: Home, Self-Care Instructions: Osteoarthritis (ED) Additional Instructions: Please follow-up with your primary care physician tomorrow. If you have any worsening or new symptoms, please return to the emergency room or call 911 Prescriptions: New ibuprofen 600 mg tablet 600 mg PO TID PRN (Reason: pain) Qty: 30 0RF acetaminophen 500 mg tablet 500 mg PO Q6H PRN (Reason: pain) Qty: 30 0RF No Action hydrochlorothiazide 25 mg tablet 25 mg PO DAILY 90 Days Qty: 90 1RF albuterol sulfate 90 mcg/actuation HFA aerosol inhaler 1 inh inhalation QID PRN (Reason: shortness of breath or wheezing) Qty: 8.5 0RF prednisolone sodium phosphate 10 mg tablet,disintegrating 10 mg PO DAILY Qty: 5 0RF ibuprofen 600 mg tablet 600 mg PO TID PRN (Reason: pain) Qty: 20 0RF Rx Instructions: Please alternate doses with acetaminophen/Tylenol prednisone 10 mg tablet 10 mg PO DAILY 5 Days Qty: 5 0RF (DME) blood-glucose meter [FreeStyle Lite Meter] Kit See Rx Instructions .Route Qty: 1 0RF Rx Instructions: As directed (DME) FreeStyle Lite Strips Strip See Rx Instructions .Route Qty: 100 3RF Rx Instructions: Use 1 test strip once a day (DME) lancets [FreeStyle Lancets] 28 gauge misc See Rx Instructions .Route Qty: 100 3RF Rx Instructions: Use 1 lancet once a day Mounjaro 2.5 mg/0.5 mL pen injector 2.5 mg subcut QWEEK 28 Days Qty: 2 0RF Referrals: Nadeen Nichols PA-C [[facility] [employer]] - Stand Alone Forms: Work/School Release Print Language: Bur[place]ian
[2023-11-15 05:15] VITALS: BP 132/62; PULSE 96; RESP 17; TEMP 36.8; O2SAT 97
== END 2023-11-15 05:15 | disposition home or self-care (01) ==
PROVIDERS: Emergency Provider Emergency Medicine; PCP Internal Medicine
DX: M17.11 Unilateral primary osteoarthritis, right knee (principal); M25.561 Pain in right knee; Z59.00 Homelessness unspecified; E11.9 Type 2 diabetes mellitus without complications; I10 Essential (primary) hypertension; Z79.899 Other long term (current) drug therapy
CPT/HCPCS: 73564; 99283; 99284

== ENCOUNTER 2023-11-24 15:45 | Outpatient (REF) | payer OTHER, SELFPAY ==
--- NOTE | ~2023-11-24 | MR_ITS ---
EXAMINATION: MR CHEST WITHOUT CONTRAST CLINICAL INFORMATION: Abnormal thymus COMPARISON: 08/11/2023 CT scan TECHNIQUE: Multiple routine MRI sequences through the chest were obtained with specific attention given to the anterior mediastinum. Unfortunately the patient was unable to tolerate any additional scanning. Contrast was not able to be given. FINDINGS: On the images that were obtained, there is soft tissue prominence in the anterior mediastinum as noted on the prior CT scan. There is intermixed soft tissue and fat signal with signal dropout on the out of phase imaging most consistent with underlying thymic hyperplasia. Overall the morphology is similar to the prior CT scan. Contrast was not able to be given before the patient was unable to continue the study. I do not appreciate any bulky adenopathy within the mediastinum. MRI is suboptimal for evaluating the lung parenchyma but no dense consolidation or effusion. No obvious axillary adenopathy or chest wall mass lesion. Visualized thyroid gland is homogeneous in signal and unremarkable. MR/MR chest wo con IMPRESSION: Patient was unable to tolerate complete study and contrast was not able be given. On the images obtained, there is soft tissue prominence in the anterior mediastinum with signal characteristics most consistent with thymic hyperplasia with signal dropout on the out of phase imaging consistent with intermixed fat and soft tissue. Overall the morphology is similar to the prior CT scan. Contrast was not able to be given. I do not appreciate any bulky adenopathy within the mediastinum. Electronically signed by: Yogesh Marks MD 01/06/2024 10:30 AM EDT
== END 2023-11-24 15:46 | disposition home or self-care (01) ==
LOC: HO.MRI 15:45
PROVIDERS: PCP Internal Medicine; Visit Provider Internal Medicine
DX: E32.8 Other diseases of thymus (principal)
CPT/HCPCS: 71550

== ENCOUNTER 2023-11-25 15:49 | Outpatient (AMB) | payer OTHER, SELFPAY ==
[2023-11-25 15:55] VITALS: BP 138/68; PULSE 86; O2SAT 96; BMI 44.0
--- NOTE | 2023-11-25 15:55 | MHC.OFFVIS ---
Vital Signs 11/25/23 15:55 Height 5 ft 5 in Weight 264 lb 8.875 oz BMI 44.0 BP 138/68 Blood Pressure Location Rt brachial Position Sitting Pulse 86 Pulse Source Pulse Oximeter Pulse Oximetry (%) 96 Oxygen Delivery Method Room Air Intake Visit Reasons: Knee pain/swelling/cm Intake Note: Patient is here with complaint of bilateral nee pain and swelling with nodules. Allergies Rbpbuza-IND-UlN Reductase Inhibitor Adverse Reaction (Intermediate, Verified 11/25/23 16:01) myalgia lisinopril Adverse Reaction (Intermediate, Uncoded 11/25/23 16:01) Cough trulicity Adverse Reaction (Intermediate, Uncoded 11/25/23 16:01) knee pain Medication List - Last Reconciled 11/25/23 by Prashant Collins MD acetaminophen 500 mg PO Q6H PRN albuterol sulfate 90 mcg/actuation 1 inh inhalation QID PRN blood sugar diagnostic (FreeStyle Lite Strips) Use 1 test strip once a day blood-glucose meter (FreeStyle Lite Meter kit) As directed diclofenac sodium 1% (Arthritis Pain (diclofenac)) 2 grams topical QID PRN 30 days hydrochlorothiazide 25 mg PO DAILY 90 days ibuprofen 600 mg PO TID PRN ibuprofen 600 mg PO TID PRN lancets (FreeStyle Lancets) Use 1 lancet once a day prednisolone sodium phosphate 10 mg PO DAILY tirzepatide (Mounjaro) 2.5 mg (0.5 mL) subcut QWEEK 4 weeks HPI Comments Details: Patient returns for follow-up. She did not get evaluated by general surgeon as instructed. She states that she took the prednisone it is was remarkably helpful, the swelling of her legs and knees significantly improved. 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 She takes ibuprofen 1200 mg daily as well as Tylenol. States that her vitiligo is worse recently. Initial history: This is a 58-year-old female who presents for evaluation of a suspected erythema nodosum. Patient stated that for the last 4 weeks she has been having diffuse swelling of both her lower extremities extending from her hips all the way into her feet. She has been having bilateral knee pain, especially with movement such as leaning on her knees. She states that she has been taking ibuprofen but it causes stomach upset. So she takes plenty of Tylenol with this relief. She went to the emergency room 2 days ago due to mildly painful swelling on her left salgado. In the ER erythema nodosum was suspected and patient was discharged on prednisone. She has not picked up the prednisone yet. She was evaluated by Dr. Whitman last year for a positive LYDIA. This was in the context of bilateral hand arthritis. She stated that she had left 3rd finger DIP swelling, the swelling seems to have resolved but she continues to have disfigurement. No autoimmune rheumatic disease was diagnosed around that time. She continues to have some mild pain in her hand joints. Associated with morning stiffness. She has history of vitiligo for many years. She denies any history of DVT/PE. 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 Family history of gastric cancer Family history of colorectal cancer Hepatitis C Surgical History History of bilateral breast reduction surgery History of hysterectomy History of clubfoot correction History of carpal tunnel surgery History of Family History Mother Diabetes CHF (congestive heart failure) Stroke Father Colon cancer Stroke Family/Other Substance use disorder Cancer Other Arthritis Social History Household Members: Family Household Members Other:: Homeless Housing: House Alcohol intake: current Alcohol intake frequency: holidays/special occasions only Alcohol type: beer Patient Tobacco Use Status: Former Tobacco user Tobacco use type: Cigarette e-Cigarette/Vaping Use: Never Used Second Hand Smoke Exposure: No service: No Current occupational status: employed 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 Current occupational exposures/hazards: No Cognitive needs: No Hearing needs: No Vision needs: Yes Female Reproductive History Menstrual Total pregnancies: 7 Full term: 3 Ab induced: 4 Review of Systems Const Denies fever(s) and Denies weight loss Musc Reports deformity, Reports arthralgias, Reports joint swelling and Reports stiffness Skin/Breast Reports lesions and Reports skin pain Physical Exam Vital Signs: Last Vital Signs Pulse 86 07/23/24 15:55 BP 138/68 11/25/23 15:55 Pulse Ox 96 11/25/23 15:55 Oxygen Delivery Method Room Air 11/25/23 15:55 BMI result Body Mass Index 44.0 Const General: cooperative, healthy appearing and comfortable Nutritional Appearance: obese morbidly obese Orientation/consciousness: patient oriented x3 Limitations: no limitations HEENT Head: Yes normocephalic and Yes atraumatic Mouth: moist mucous membranes Resp Effort & Inspection: normal respiratory effort and able to speak in complete sentences Auscultation: clear to auscultation bilaterally Cardio Rate: regular rate Rhythm: regular rhythm Skin Other: A couple of circular swellings, 1 in the left mid salgado on the lateral aspect, the other 1 under lower lateral aspect of left salgado. The lower 1 is mildly tender Vitiligo of the left foot, hyperpigmented spots the left leg and thigh Neuro General: patient oriented x3 Extrem Other: Right knee warmth and pain with any range of motion Left knee pain with flexion and extension Bilateral ankle and feet swelling but no tenderness or warmth Mild osteoarthritic changes both hands but significant enlargement and disfigurement of left 3rd DIP Minimal tenderness of both wrists, and pain with flexion and extension of wrists. Minimal tenderness of PIPs Normal nailfold capillaroscopy Results Reviewed Results Reviewed: Ordering Physician: Sasha Jerome DO Date of Service: 08/11/23 Procedure(s): CT chest wo IV con Accession Number(s): [id number] cc: Sasha Jerome DO; Lydia Gray MD~ ADDENDUM ADDENDUM: There is residual thymic tissue. Within the thymus (2:23), a 1.5 x 0.7 cm focal nodule is seen. The possibility of a thymic neoplasm such as a thymoma is raised. Recommend thymic MRI (with and without contrast and to include in and out of phase imaging). No pulmonary nodularity, solid or groundglass opacity, fibrosis or cyst formation is seen to suggest sarcoidosis. There is no pleural effusion or lymphadenopathy. A preliminary report was provided by the [facility] on 08/12/2023. Addendum Dictated By: Nahid Wilson MD Addendum Signed By:? <Electronically signed by Nahid Wilson MD in [place]> 08/12/23 4548 Addendum Cosigned By: DD/ /26/2000 TD/TT: / EXAMINATION:? CT CHEST WITHOUT CONTRAST CLINICAL INFORMATION:? Dyspnea; clinical question of sarcoidosis.?? COMPARISON:? Chest radiographs dated 06/12/2023. TECHNIQUE:? Multidetector volumetric CT imaging of the chest was done. Axial MIP volume rendering provided. Sagittal and coronal reformatted images were obtained.?? This CT examination was performed using dose optimization techniques as appropriate, variously including the following: *Automated exposure control *Adjustment of mA and/or kV according to patient size (this includes techniques or standardized protocols for targeted exams where dose is matched to indication/reason for exam; i.e. extremities or head) *Use of iterative reconstruction technique DLP: 588 mGy-cm FINDINGS: GROUP MANAGER: The lungs are symmetrically well-expanded and grossly clear. LUNGS: The lungs are clear with no evidence of inflammation or noncalcified nodules. A tiny benign, calcified granuloma is incidentally noted within the posterior basal segment of the left lower lobe (4:283). There are foci of minor scar/subsegmental atelectasis within the lingula and right middle lobe, without associated focal airway obstruction. No small airway thickening is seen. The central airways appear patent. MEDIASTINUM: The thyroid is unremarkable. There is mild residual thymus. No mediastinal or hilar lymphadenopathy is seen. There is no thoracic aneurysm. CORONARY ARTERY CALCIFICATION: None visualized on this study. PLEURA: There is no pleural effusion. No pleural mass or thickening.?? AXILLA: No lymphadenopathy.?? UPPER ABDOMEN: Unremarkable.?? OSSEOUS STRUCTURES: There is multi-level marked thoracolumbar spondylosis, with an appearance suggesting possible DISH (diffuse idiopathic skeletal hyperostosis). At T8-T9 through T11-T12, there is degenerative disc disease, with vacuum phenomenon. No acute or aggressive osseous findings is noted.?? CT/CT chest wo IV con IMPRESSION:? ? 1. No noncalcified nodule, mass, infiltrate or groundglass opacity is seen. ? 2. There are foci of minor scar/subsegmental atelectasis within the lingula and right middle lobe, without associated focal airway obstruction. ? 3. No thoracic lymphadenopathy or pleural effusion is seen. ? 4. There is no aggressive osseous lesion. Skeletal findings suggest possible DISH ? Fleischner guidelines were followed. Dictated By: Nahid Wilson MD Signed By: <Electronically signed by Nahid Wilson MD in [place]> 08/11/23 1058 US/ venous duplex LE BI IMPRESSION:? No DVT demonstrated in the bilateral lower extremity. Ordering Physician: Edison Castillo Date of Service: 08/11/23 Procedure(s): XR tibia fibula LT 2V Accession Number(s): [id number] cc: Edison Castillo; Lydia Gray MD~ EXAMINATION:? XR TIBIA AND FIBULA, LEFT CLINICAL INFORMATION:? Leg swelling?? COMPARISON:? None available.?? TECHNIQUE:? AP and lateral views of the left tibia and fibula were obtained. FINDINGS:? No fracture. No osseous lesions. There is atherosclerotic calcification. Degenerative disease of the knee. Diffuse soft tissue swelling. XR/XR tibia fibula LT 2V IMPRESSION: Diffuse soft tissue swelling. ? XR/XR knee LT 2V IMPRESSION: ? 1. There is moderate peripheral osteophyte formation of the medial and patellofemoral joint space compartments of the right knee, and very mild osteoarthritic change is seen of the lateral joint space compartment. ? 2. No fracture, dislocation or joint effusion is seen. ? ? EXAMINATION:? XR KNEE, LEFT? ? CLINICAL INFORMATION:? Pain.?? ? COMPARISON:? None available.?? ? TECHNIQUE:? AP and lateral views of the left knee. ? FINDINGS: Bony alignment and mineralization are normal. The lateral and medial joint space compartments are well-maintained and show mild peripheral osteophyte formation. There is marked narrowing of the patellofemoral compartment, with peripheral osteophyte formation. No fracture or dislocation is seen. There is a small joint effusion. No foreign body is seen.?? ? IMPRESSION: ? 1. There is tricompartment osteoarthritic change of the left knee, most pronounced of the patellofemoral compartment, where degenerative change is marked. ? 2. There is a small joint effusion. ? ? ?Ordering Physician: yLdia Gray MD Date of Service: 08/21/22 Procedure(s): XR hand LT 2V Accession Number(s): [id number] cc: Lydia Gray MD~ EXAMINATION:? Bilateral hand x-ray CLINICAL INFORMATION:? Pain?? COMPARISON:? None.?? TECHNIQUE:? 3 views of each hand?? FINDINGS: Right: Bone alignment is normal. No fracture or dislocation. Normal joint spaces. Normal soft tissues. Left: Bone alignment is normal. No fracture or dislocation. 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 Joint spaces are otherwise normal. Soft tissues are normal.?? XR/XR hand LT 2V IMPRESSION: Right: Unremarkable exam ? Left: Osteoarthritis at the DIP joints.?? Assessment & Plan Assessment & Plan (1) LYDIA positive: Code(s): R76.8 - Other specified abnormal immunological findings in serum Category: Medical Plan: This is a 58-year-old female with history of vitiligo who presents for evaluation of suspected erythema nodosum. Patient has been having bilateral knee pain associated with swelling of the knees as well as the legs and who circular swellings, erythema nodosum was suspected. Comprehensive serologies showed a positive LYDIA with low C3 and C4 as well as positive anti CCP antibody. She has normal Wyatt level, normal vitamin-D levels. She likely has an underlying autoimmune rheumatic disease, seropositive RA versus SLE or a combination of both. I had a long conversation with patient about her condition. We will need to start DMARDs. Discussed risks and benefits of Plaquenil. Patient does not want to take any medications at this time. She would like natural treatments. She will start turmeric. Advised patient to take 2000 mg of turmeric a day. She will start the Mounjaro. She will also modify her diet with more fruits and vegetables Labs before next visit in 3 months Plan I spent 29 minutes reviewing patient's chart, evaluating patient, ordering diagnostic workup, counseling patient and documenting in the chart Orders: Orders C Reactive Protein 3 Months E11.9 - Type 2 diabetes mellitus without complications, E66.01 - Morbid (severe) obesity due to excess calories, E78.5 - Hyperlipidemia, unspecified, I10 - Essential (primary) hypertension Complement C3 3 Months M32.9 - Systemic lupus erythematosus, unspecified UA w Microscopic 3 Months M32.9 - Systemic lupus erythematosus, unspecified Complete Blood Count Auto Diff 3 Months M32.9 - Systemic lupus erythematosus, unspecified Protein Creatinine Ratio, Ur 3 Months R76.8 - Other specified abnormal immunological findings in serum Anti DNA DS Antibody 3 Months M32.9 - Systemic lupus erythematosus, unspecified Complement C4 3 Months M32.9 - Systemic lupus erythematosus, unspecified Comprehensive Met. Panel 3 Months M32.9 - Systemic lupus erythematosus, unspecified Coding Level of Care Code Est Pt Level 4 (90414) Diagnoses LYDAI positive R76.8
== END 2023-11-25 16:39 | disposition home or self-care (01) ==
PROVIDERS: PCP Internal Medicine; Visit Provider Student in an Organized Health Care Education/Training Program
DX: R76.8 Other specified abnormal immunological findings in serum (principal)
CPT/HCPCS: 99214

== ENCOUNTER → 2023-11-25 15:49 | Outpatient (BNVA) | payer OTHER, SELFPAY | PROVIDERS: PCP Internal Medicine; Visit Provider Student in an Organized Health Care Education/Training Program ==

== ENCOUNTER 2023-12-10 15:05 | Outpatient (AMB) | payer OTHER, SELFPAY ==
--- NOTE | 2023-12-10 15:06 | A.OFFVIS_ITS ---
Intake Visit Reasons: [employer]-Right knee arthritis Intake Note: Dorothea is a 58 year old female who presents with complaints of intermittent pain in both of her knees. The patient states that she was recently diagnosed with lupus. She has been on prednisone which gives her fairly good relief of her knee pains. She denies any locking or giving way. Her pains are exacerbated by going up and down stairs as well as kneeling. The patient has not had a cortisone injection in the past. She is due to follow up with Rheumatology in the near future for further lupus treatment recommendations. Allergies Holgmqo-QCQ-FgZ Reductase Inhibitor Adverse Reaction (Intermediate, Verified 12/10/23 15:06) myalgia lisinopril Adverse Reaction (Intermediate, Uncoded 12/10/23 15:06) Cough trulicity Adverse Reaction (Intermediate, Uncoded 12/10/23 15:06) knee pain Medication List - Last Reconciled 12/10/23 by Yogesh Vyas MD acetaminophen 500 mg PO Q6H PRN blood sugar diagnostic (FreeStyle Lite Strips) Use 1 test strip once a day blood-glucose meter (FreeStyle Lite Meter kit) As directed ibuprofen 600 mg PO TID PRN ibuprofen 600 mg PO TID PRN lancets (FreeStyle Lancets) Use 1 lancet once a day prednisone Take 3 tabs daily for 1 week, 2 tabs daily for 1 week, 1 tab daily for 1 week then stop tirzepatide (Mounjaro) 2.5 mg (0.5 mL) subcut QWEEK 4 weeks [facility] Medical History Vitiligo Personal history of nicotine dependence Asthma [id number] syndrome Family history of gastric cancer Family history of colorectal cancer Hepatitis C Surgical History History of bilateral breast reduction surgery History of hysterectomy History of clubfoot correction History of carpal tunnel surgery History of Family History Mother Diabetes CHF (congestive heart failure) Stroke Father Colon cancer Stroke Family/Other Substance use disorder Cancer Other Arthritis Social History Household Members: Family Household Members Other:: Homeless Housing: House Alcohol intake: current Alcohol intake frequency: holidays/special occasions only Alcohol type: beer Patient Tobacco Use Status: Former Tobacco user Tobacco use type: Cigarette e-Cigarette/Vaping Use: Never Used Second Hand Smoke Exposure: No service: No Current occupational status: employed Current occupation: [employer] Current occupational exposures/hazards: No Cognitive needs: No Hearing needs: No Vision needs: Yes Physical Exam Const Other: Well-nourished well-developed very friendly female awake alert and oriented x3 in no acute distress Extrem Other: Bilateral lower extremity examination shows good capillary refill, no skin lesions noted, normal sensation light touch Bilateral knee examination shows mild effusions, palpable crepitus with range of motion, pain with range of motion, range of motion from -3 degrees to 115 degrees, no instability Results Reviewed Results Reviewed: X-rays of the patient's bilateral knee show moderate to severe joint space narrowing most significant in the patellofemoral joint, subchondral sclerosis, no acute bony abnormalities Assessment & Plan Assessment & Plan (1) Right knee pain: Code(s): M25.561 - Pain in right knee Category: Medical (2) Left knee pain: Code(s): M25.562 - Pain in left knee Category: Medical Plan Ms. Tolbert presents with bilateral knee pains due to degenerative joint disease. I had a lengthy discussion with the patient regarding the treatment options. We will hold off on a cortisone injection at this time. She will follow up with Rheumatology as scheduled. She will contact my office to make a follow-up appointment once her lupus is being treated. Feel free to call me at any time should questions regarding her orthopedic management arise. I spent 20 minutes in reviewing the patient's records and imaging studies, seeing the patient and documenting in the medical record. Coding Level of Care Code New Pt Level 3 (62296) Diagnoses Right knee pain M25.561 Left knee pain M25.562
== END 2023-12-10 16:05 | disposition home or self-care (01) ==
PROVIDERS: PCP Internal Medicine; Visit Provider Orthopaedic Surgery
DX: M17.0 Bilateral primary osteoarthritis of knee (principal)
CPT/HCPCS: 99203

== ENCOUNTER → 2023-12-10 15:05 | Outpatient (BNVA) | payer OTHER, SELFPAY | PROVIDERS: PCP Internal Medicine; Visit Provider Orthopaedic Surgery ==

== ENCOUNTER 2023-12-25 09:35 | Outpatient (AMB) | payer OTHER, SELFPAY ==
--- NOTE | 2023-12-25 09:37 | A.OFFPC_ITS ---
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: No Accompanied by: Self / Same As Patient Allergies ibuprofen Adverse Reaction (Severe, Verified 12/25/23 09:52) abdominal pain Visdefk-KJU-[id number] Reductase Inhibitor Adverse Reaction (Intermediate, Verified 12/25/23 09:52) myalgia lisinopril Adverse Reaction (Intermediate, Uncoded 12/25/23 09:52) Cough trulicity Adverse Reaction (Intermediate, Uncoded 12/25/23 09:52) knee pain Medication List - Last Reconciled 12/25/23 by Lydia Lopes MD acetaminophen 500 mg PO Q6H PRN blood sugar diagnostic (FreeStyle Lite Strips) Use 1 test strip once a day blood-glucose meter (FreeStyle Lite Meter kit) As directed hydroxychloroquine 200 mg PO BID lancets (FreeStyle Lancets) Use 1 lancet once a day prednisone Take 3 tabs daily for 1 week, 2 tabs daily for 1 week, 1 tab daily for 1 week then stop tirzepatide (Mounjaro) 2.5 mg (0.5 mL) subcut QWEEK 4 weeks Tobacco use date assessed: 07/30/23 Dental Screening Dental Screen Date: 07/30/23 HPI HPI Comments History of Present Illness Details This is a 58-year-old female with diabetes mellitus type 2, morbid obesity, bilateral knee osteoarthritis and positive LYDIA that comes today for follow-up on her conditions. A1c within goal. She is morbidly obese and would like a referral for weight management. Has bilateral knee osteoarthritis evaluated by ortho and pain has improved with prednisone. Has a positive LYDIA with positive CCP and low complements most likely due to either rheumatoid arthritis versus lupus versus a combination of both. Positive LYDIA is follow by Rheumatology and she is taking hydroxychloroquine for it. 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 Family history of gastric cancer Family history of colorectal cancer Hepatitis C Surgical History History of bilateral breast reduction surgery History of hysterectomy History of clubfoot correction History of carpal tunnel surgery History of Family History Mother Diabetes CHF (congestive heart failure) Stroke Father Colon cancer Stroke Family/Other Substance use disorder Cancer Other Arthritis Social History Household Members: Family Household Members Other:: Homeless Housing: House Alcohol intake: current Alcohol intake frequency: holidays/special occasions only Alcohol type: beer Patient Tobacco Use Status: Former Tobacco user Tobacco use type: Cigarette e-Cigarette/Vaping Use: Never Used Second Hand Smoke Exposure: No service: No Current occupational status: employed Current occupation: [employer] Current occupational exposures/hazards: No Cognitive needs: No Hearing needs: No Vision needs: Yes Questionnaire Thrive Questionnaire Date Thrive assessed: 07/30/23 SRINI-7 AMB Questionnaire SRINI-7 Date SRINI - 7 assessed: 07/30/23 Source: Developed by Drs. Adam Gomez, Tessa Mendez, Freddy Enriquez and colleagues, with an educational linda from [employer]. Review of Systems Const All systems reviewed & are unremarkable except as noted in HPI and below Card Denies chest pain at rest, Denies chest pain with activity, Denies edema, Denies irregular heart rhythm, Denies claudication, Denies dyspnea, Denies dyspnea on exertion, Denies orthopnea, Denies paroxysmal nocturnal dyspnea and Denies slow heart rate Resp Denies cough, Denies dyspnea and Denies dyspnea on exertion GI Denies abdominal pain, Denies change in bowel habits, Denies excessive flatus, Denies nausea and Denies vomiting Denies urinary incontinence, Denies urinary hesitancy and Denies urinary urgency Musc Denies atrophy, Denies deformity, Reports arthralgias and Denies limited range of motion Physical exam (Primary Care) Vital Signs: Last Vital Signs BP 138/70 12/25/23 09:45 BMI result Body Mass Index 44.3 BMI Assessment/Plan discussion: High BMI High, discussed plan: lifestyle, weight reduction, dietary and physical activity Tobacco/Smoking Status: Tobacco use Status Tobacco use date assessed 07/30/23 12/25/23 09:38 Patient Tobacco Use Status Former Tobacco user 12/25/23 09:38 Tobacco use type Cigarette 12/25/23 09:38 e-Cigarette/Vaping Use Never Used 12/25/23 09:38 Thrive Assessment: Date of Thrive Assessment Date Thrive assessed 07/30/23 12/25/23 09:38 Resp Effort & Inspection: normal respiratory effort Auscultation: clear to auscultation bilaterally Cardio Jugular venous distension: no JVD Rate: regular rate Rhythm: regular rhythm Heart sounds: S1 normal heart sound present and S2 normal heart sound present Extrem General: Yes full ROM Results AMB Hemoglobin A1c AMB Hemoglobin A1c 6.7 % Last Edit by FAHAD Hart on 12/25/23 09:5 1 Results Reviewed Results Reviewed: Laboratory Last Values Hgb A1c (Clinic) 6.7 % (4.0-6.0) H 12/25/23 09:37 Assessment and Plan Assessment & Plan (1) Diabetes mellitus: Code(s): E11.9 - Type 2 diabetes mellitus without complications Qualifiers: Diabetes mellitus type: type 2 Diabetes mellitus assisted insulin use: without terminal operations supervisor use Diabetes mellitus complication status: without complication Qualified Code(s): E11.9 - Type 2 diabetes mellitus without complications Plan: Increase Mounjaro. A1c goal is equal or less than 7%. (2) Morbid obesity with BMI of 40.0-44.9, adult: Code(s): E66.01 - Morbid (severe) obesity due to excess calories; Z68.41 - Body mass index [BMI] 40.0-44.9, adult Plan: Referred to weight management. Start diet and exercise. BMI goal is less than 30. (3) LYDIA positive: Code(s): R76.8 - Other specified abnormal immunological findings in serum Plan: Continue hydroxychloroquine. Follow-up with rheumatology. (4) Osteoarthritis of knees, bilateral: Code(s): M17.0 - Bilateral primary osteoarthritis of knee Qualifiers: Osteoarthritis type: primary Qualified Code(s): M17.0 - Bilateral primary osteoarthritis of knee Plan: Start tramadol as needed. 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 Panel Fast Today E78.5 - Hyperlipidemia, unspecified Thyroid Stimulating Hormone Today E66.01 - Morbid (severe) obesity due to excess calories, Z68.41 - Body mass index [BMI] 40.0-44.9, adult AMB Hemoglobin A1c Today E11.9 - Type 2 diabetes mellitus without complications Microalbumin, Random (w Creat) Today E11.9 - Type 2 diabetes mellitus without complications Referrals Medical Weight Management Referral E66.01 - Morbid (severe) obesity due to excess calories, Z68.41 - Body mass index [BMI] 40.0-44.9, adult Medications: New tirzepatide (Mounjaro) 5 mg (0.5 mL) subcut QWEEK 4 weeks 2 mL 0RF tramadol 50 mg PO DAILY 30 days PRN 20 tabs 0RF pain M47.816 - Spondylosis without myelopathy or radiculopathy, lumbar region Discontinued tirzepatide (Mounjaro) Discontinued Reason: Patient Completed Course 2.5 mg (0.5 mL) subcut QWEEK 4 weeks 2 mL 0RF E11.9 - Type 2 diabetes mellitus without complications Coding Level of Care Code Est Pt Level 4 (53083) Complex EM visit Add On G2211 Diagnoses Type 2 diabetes mellitus without complication, without long-term current use of insulin E11.9 Diabetes mellitus type: type 2 Diabetes mellitus assisted insulin use: without terminal operations supervisor use Diabetes mellitus complication status: without complication Morbid obesity with BMI of 40.0-44.9, adult E66.01; Z68.41 LYDIA positive R76.8 Primary osteoarthritis of both knees M17.0 Osteoarthritis type: primary Thymic cyst E32.8 Time Spent (min) 22
[2023-12-25 09:45] VITALS: BP 138/70; BMI 44.3
== END 2023-12-25 10:08 | disposition home or self-care (01) ==
PROVIDERS: PCP Internal Medicine; Visit Provider Internal Medicine
DX: E11.9 Type 2 diabetes mellitus without complications (principal); E66.01 Morbid (severe) obesity due to excess calories; Z68.41 Body mass index [BMI] 40.0-44.9, adult; E32.8 Other diseases of thymus; R76.8 Other specified abnormal immunological findings in serum; M17.0 Bilateral primary osteoarthritis of knee
CPT/HCPCS: 83036; 99214

== ENCOUNTER 2024-02-03 14:09 | Outpatient (AMB) | payer OTHER, SELFPAY ==
--- NOTE | 2024-02-03 14:12 | A.OFFVIS_ITS ---
Vital Signs 02/03/24 14:16 Height 5 ft 5 in Weight 263 lb 3.711 oz BMI 43.8 BP 132/78 Blood Pressure Location Rt brachial Position Sitting Pulse 89 Pulse Source Pulse Oximeter Pulse Oximetry (%) 97 Oxygen Delivery Method Room Air Intake Visit Reasons: Knee pain swelling Intake Note: Patient presents for knee pain swelling. Allergies ibuprofen Adverse Reaction (Severe, Verified 12/25/23 09:52) abdominal pain Nrykrkv-JGV-DfY Reductase Inhibitor Adverse Reaction (Intermediate, Verified 12/25/23 09:52) myalgia lisinopril Adverse Reaction (Intermediate, Uncoded 12/25/23 09:52) Cough trulicity Adverse Reaction (Intermediate, Uncoded 12/25/23 09:52) knee pain Medication List - Last Reconciled 02/03/24 by Prashant Collins MD acetaminophen 500 mg PO Q6H PRN blood sugar diagnostic (FreeStyle Lite Strips) Use 1 test strip once a day blood-glucose meter (FreeStyle Lite Meter kit) As directed hydroxychloroquine 200 mg PO BID lancets (FreeStyle Lancets) Use 1 lancet once a day prednisone 5 mg PO DAILY tirzepatide (Mounjaro) 5 mg (0.5 mL) subcut QWEEK 4 weeks tramadol 50 mg PO DAILY PRN 30 days HPI Comments Details: 58-year-old female with newly diagnosed RA/lupus overlap returns for follow-up. She taking hydroxychloroquine regularly for the last 6 weeks or so. I prescribed her a prednisone taper that she completed 1-2 weeks ago with resolution of her knee pains as well as improvement of the swellings in her legs. She states that the right knee pain is coming back. Initial history: This is a 58-year-old female who presents for evaluation of a suspected erythema nodosum. Patient stated that for the last 4 weeks she has been having diffuse swelling of both her lower extremities extending from her hips all the way into her feet. She has been having bilateral knee pain, especially with movement such as leaning on her knees. She states that she has been taking ibuprofen but it causes stomach upset. So she takes plenty of Tylenol with this relief. She went to the emergency room 2 days ago due to mildly painful swelling on her left salgado. In the ER erythema nodosum was suspected and patient was discharged on prednisone. She has not picked up the prednisone yet. She was evaluated by Dr. Whitman last year for a positive LAKHWINDER. This was in the context of bilateral hand arthritis. She stated that she had left 3rd finger DIP swelling, the swelling seems to have resolved but she continues to have disfigurement. No autoimmune rheumatic disease was diagnosed around that time. She continues to have some mild pain in her hand joints. Associated with morning stiffness. She has history of vitiligo for many years. She denies any history of DVT/PE. 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 Family history of gastric cancer Family history of colorectal cancer Hepatitis C Surgical History History of bilateral breast reduction surgery History of hysterectomy History of clubfoot correction History of carpal tunnel surgery History of Family History Mother Diabetes CHF (congestive heart failure) Stroke Father Colon cancer Stroke Family/Other Substance use disorder Cancer Other Arthritis Social History Household Members: Family Household Members Other:: Homeless Housing: House Alcohol intake: current Alcohol intake frequency: holidays/special occasions only Alcohol type: beer Patient Tobacco Use Status: Former Tobacco user Tobacco use type: Cigarette e-Cigarette/Vaping Use: Never Used Second Hand Smoke Exposure: No service: No Current occupational status: employed Current occupation: [employer] Current occupational exposures/hazards: No Cognitive needs: No Hearing needs: No Vision needs: Yes Female Reproductive History Menstrual Total pregnancies: 7 Full term: 3 Ab induced: 4 Review of Systems Const Denies fever(s) and Denies weight loss Musc Reports deformity, Reports arthralgias, Reports joint swelling and Reports stiffness Skin/Breast Reports lesions and Reports skin pain Physical Exam Vital Signs: Last Vital Signs Pulse 89 02/03/24 14:16 BP 132/78 02/03/24 14:16 Pulse Ox 97 02/03/24 14:16 Oxygen Delivery Method Room Air 02/03/24 14:16 BMI result Body Mass Index 43.8 Const General: cooperative, healthy appearing and comfortable Nutritional Appearance: obese morbidly obese Orientation/consciousness: patient oriented x3 Limitations: no limitations HEENT Head: Yes normocephalic and Yes atraumatic Mouth: moist mucous membranes Resp Effort & Inspection: normal respiratory effort and able to speak in complete sentences Auscultation: clear to auscultation bilaterally Cardio Rate: regular rate Rhythm: regular rhythm Skin Other: A couple of circular swellings, 1 in the left mid salgado on the lateral aspect, the other 1 under lower lateral aspect of left salgado. Neither lesions are tender today Vitiligo of the left foot, hyperpigmented spots the left leg and thigh Neuro General: patient oriented x3 Extrem Other: Right knee warmth and pain with any range of motion Bilateral ankle and feet swelling but no tenderness or warmth Mild osteoarthritic changes both hands but significant enlargement and disfigurement of left 3rd DIP Minimal tenderness of both wrists, and pain with flexion and extension of wrists. Minimal tenderness of PIPs No active synovitis both hands Normal nailfold capillaroscopy Assessment & Plan Assessment & Plan (1) LAKHWINDER positive: Code(s): R76.8 - Other specified abnormal immunological findings in serum Category: Medical Plan: This is a 58-year-old female with history of vitiligo who presents for evaluation of suspected erythema nodosum. Patient has been having bilateral knee pain associated with swelling of the knees as well as the legs and who circular swellings, erythema nodosum was suspected. Comprehensive serologies showed a positive LAKHWINDER with low C3 and C4 as well as positive anti CCP antibody. She has normal [place] level, normal vitamin-D levels. She likely has an underlying autoimmune rheumatic disease, seropositive RA versus SLE or a combination of both. She started hydroxychloroquine 20 mg Twice daily about 6 weeks ago. Prednisone taper is quite effective for her bilateral knee inflammatory arthritis. Continue with hydroxychloroquine 200 mg Twice daily. Start prednisone 5 mg daily. Labs before next visit in 2 months. If no improvement, we will likely advance her DMARDs, consider methotrexate (2) Long-term use of hydroxychloroquine: Code(s): Z79.899 - Other mcc (current) drug therapy Category: Medical Plan: Discussed risk of retinopathy associated with hydroxychloroquine. 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 Panel 2 Months M32.9 - Systemic lupus erythematosus, unspecified Anti DNA DS Antibody 2 Months M32.9 - Systemic lupus erythematosus, unspecified Erythrocyte Sedimentation Rate 2 Months M32.9 - Systemic lupus erythematosus, unspecified UA w Microscopic 2 Months M32.9 - Systemic lupus erythematosus, unspecified Complete Blood Count Auto Diff 2 Months M32.9 - Systemic lupus erythematosus, unspecified Medications: Changed From prednisone Take 3 tabs daily for 1 week, 2 tabs daily for 1 week, 1 tab daily for 1 week then stop 42 tabs 0RF To prednisone 5 mg PO DAILY 30 tabs 1RF Coding Level of Care Code Est Pt Level 5 (21877) Complex EM visit Add On G2211 Diagnoses LAKHWINDER positive R76.8 Long-term use of hydroxychloroquine Z79.899
[2024-02-03 14:16] VITALS: BP 132/78; PULSE 89; O2SAT 97; BMI 43.8
== END 2024-02-03 14:42 | disposition home or self-care (01) ==
PROVIDERS: PCP Internal Medicine; Visit Provider Student in an Organized Health Care Education/Training Program
DX: R76.8 Other specified abnormal immunological findings in serum (principal); Z79.899 Other long term (current) drug therapy
CPT/HCPCS: 99215

== ENCOUNTER → 2024-02-03 14:09 | Outpatient (BNVA) | payer OTHER, SELFPAY | PROVIDERS: PCP Internal Medicine; Visit Provider Student in an Organized Health Care Education/Training Program ==

== ENCOUNTER 2024-02-20 10:45 | Outpatient (REF) | payer OTHER, SELFPAY ==
[2024-02-20 13:33] LABS: MANUAL DIFF FLAG NO
[2024-02-20 13:59] LABS: Basophils Percent Auto 0.3 % (0-2); Eosinophils Absolute Auto 0.1 X10*3/uL (0.0-0.4); Eosinophils Percent Auto 1.5 % (0-4); Hematocrit 39.5 % (37.0-47.0); Hemoglobin 13.1 g/dl (12.0-16.0); Imm Gran Abs Auto 0.02 X10*3/uL (0.00-0.03); Imm Gran Pct Auto 0.2 % (0.0-0.4); Lymphocytes Absolute Auto 2.7 X10*3/uL (1.2-4.9); Lymphocytes Percent Auto 31.2 % (20-40); Mean Corpuscular HGB Conc 33.2 g/dl (31.0-35.0); Mean Corpuscular Hemoglobin 31.3 pg (27.0-33.0); Mean Corpuscular Volume 94.3 fL (80.0-98.0); Mean Platelet Volume 9.5 fL (9.4-12.3); Monocytes Absolute Auto 0.5 X10*3/uL (0.1-1.2); Monocytes Percent Auto 5.1 % (2-11); Neutrophils Absolute Auto 5.4 x10*3/uL (2.0-8.3); Neutrophils Percent Auto 61.7 % (45-73); Platelet Count 263 X10*3/uL (160-400); Red Blood Count 4.19 X10*6/uL (4.20-5.50); Red Cell Distribution Width 13.2 % (11.0-16.0); White Blood Count 8.8 X10*3/uL (4.8-10.8)
[2024-02-20 13:59] LABS: Appearance Urine Clear; Color Urine Yellow; Glucose Urine UA Negative (Negative); Leukocyte Esterase Urine Negative (Negative); Nitrite Urine Negative (Negative); PH 5.5 (5.0-9.0); Specific Gravity - Urine 1.025 (1.005-1.025); Urine Blood Negative (Negative); Urine Ketones Negative (Negative); Urine Protein Negative (Neg-Trace)
[2024-02-20 14:03] LABS: Bacteria Urine Trace (None Seen); Hyaline Casts Urine 0-2 /LPF (0-2); RBC Urine 0-2 /HPF (0-2); WBC Urine 0-5 /HPF (0-5)
[2024-02-20 14:27] LABS: Alanine Aminotransferase 19 U/L (0-31); Albumin Level 4.6 g/dL (3.5-5.0); Alkaline Phosphatase 48 U/L (39-117); Anion Gap 12 (12-20); Aspartate Amino Transferase 17 U/L (5-31); Bilirubin Total 0.6 mg/dL (0.0-1.0); Blood Urea Nitrogen 19 mg/dL (9-16); C Reactive Protein 0.48 mg/dL (< or = 0.50); Calcium 9.7 mg/dL (8.4-10.2); Carbon Dioxide 27 mmol/L (22-29); Chloride 108 mmol/L (96-108); Cholesterol 181 mg/dL (<200); Estimated Glomerular Filt Rate > 60; Glucose Fasting 99 mg/dL (60-99); HDL Cholesterol 50 mg/dL (>40); LDL Cholesterol Calculated 115 mg/dL (<100); Potassium 3.6 mmol/L (3.3-5.1); Sodium 143 mmol/L (135-145); Total Protein 7.5 g/dL (6.5-8.0); Triglycerides 83 mg/dL (<150)
[2024-02-20 14:42] LABS: Thyroid Stimulating Hormone 0.48 uIU/mL (0.32-4.0)
[2024-02-20 14:58] LABS: Creatinine Urine 221.31 mg/dL; Protein/Creatinine Ratio, Ur 0.06 (<0.2); Total Protein Urine Random 14 mg/dL (<12)
[2024-02-20 15:23] LABS: Creatinine Urine 225.97 mg/dL; Microalbum/Creatinine Ratio Ur 9.2 ug/mg cr (<30)
[2024-02-23 11:03] LABS: Complement C3 150 mg/dL (83-193)
[2024-02-23 13:48] LABS: Anti DNA DS Antibody <1 IU/mL
[2024-02-24 19:59] LABS: Cardiolipin IgG Ab <2.0 GPL-U/mL; Cardiolipin IgM Ab <2.0 MPL-U/mL
[2024-02-25 16:23] LABS: Beta-2 Glycoprotein IgA <2.0 U/mL (<20.0); Beta-2 Glycoprotein IgG <2.0 U/mL (<20.0); Beta-2 Glycoprotein IgM 2.1 U/mL (<20.0)
[2024-02-27 00:03] LABS: PTT (LAC) Screen 30 sec (<=40)
[2024-03-01 16:03] LABS: Centromere Protein A Ab <11 SI (<11); Centromere Protein B Ab <11 SI (<11); Fibrillarin Ab <11 SI (<11); PM SCL 100 Ab <11 SI (<11); PM SCL 75 Ab <11 SI (<11); RNA Polymerase III RP11 Ab <11 SI (<11); RNA Polymerase III RP155 Ab <11 SI (<11); SCL-70 Extractable Nuclear Ab <11 SI (<11); Th-To Ab <11 SI (<11); U1 SNRNP RNP 70KD <11 SI (<11); U1 SNRNP RNP A <11 SI (<11); U1 SNRNP RNP C <11 SI (<11)
== END 2024-02-20 10:46 | disposition home or self-care (01) ==
LOC: HO.LAB 10:45
PROVIDERS: Absent Provider Student in an Organized Health Care Education/Training Program; PCP Internal Medicine; Visit Provider Internal Medicine
DX: M32.9 Systemic lupus erythematosus, unspecified (principal); E11.9 Type 2 diabetes mellitus without complications; E78.5 Hyperlipidemia, unspecified; E66.01 Morbid (severe) obesity due to excess calories; Z68.41 Body mass index [BMI] 40.0-44.9, adult; D68.61 Antiphospholipid syndrome; I10 Essential (primary) hypertension; M34.9 Systemic sclerosis, unspecified; R76.8 Other specified abnormal immunological findings in serum
CPT/HCPCS: 36415; 80053; 80061; 81001; 82043; 82570; 84156; 84182; 84443; 85025; 85597; 85598; 85613; 85730; 86140; 86146; 86147; 86160; 86225; 86235

== ENCOUNTER 2024-02-25 16:10 | Outpatient (AMB) | payer OTHER, SELFPAY ==
--- NOTE | 2024-02-25 16:13 | A.OFFVIS_ITS ---
Vital Signs 02/25/24 16:14 Height 5 ft 5 in Weight 265 lb 14.04 oz BMI 44.2 BP 132/76 Blood Pressure Location Lt brachial Position Sitting Pulse 86 Pulse Source Pulse Oximeter Pulse Oximetry (%) 100 Oxygen Delivery Method Room Air Intake Visit Reasons: Rhupus Intake Note: Patient last seen by Doctor Prashant Collins on 02/03/24. Presents today for Rhupus follow up and test results. Patient states that the [id number] because it gave her a bad rash. Allergies ibuprofen Adverse Reaction (Severe, Verified 02/25/24 16:17) abdominal pain [id number] Reductase Inhibitor Adverse Reaction (Intermediate, Verified 02/25/24 16:17) myalgia lisinopril Adverse Reaction (Intermediate, Uncoded 02/25/24 16:17) Cough trulicity Adverse Reaction (Intermediate, Uncoded 02/25/24 16:17) knee pain Medication List - Last Reconciled 02/25/24 by Prashant Collins MD acetaminophen 500 mg PO Q6H PRN blood sugar diagnostic (FreeStyle Lite Strips) Use 1 test strip once a day blood-glucose meter (FreeStyle Lite Meter kit) As directed hydroxychloroquine 200 mg PO BID lancets (FreeStyle Lancets) Use 1 lancet once a day prednisone 5 mg PO DAILY prednisone 5 mg PO DAILY tirzepatide (Mounjaro) 5 mg (0.5 mL) subcut QWEEK 4 weeks tramadol 50 mg PO DAILY PRN 30 days HPI Comments Details: 58-year-old female with newly diagnosed RA/lupus overlap returns for follow-up. After last visit 3 weeks ago patient self discontinued her hydroxychloroquine due to a rash on the back of her neck as well as a rash on her left forearm. She attributed the rash to hydroxychloroquine. She states that the rash cleared up just a few days after she discontinued hydroxychloroquine. She has been taking prednisone 5 tabs daily alternating with 10 tabs daily. She states that the knee pain and swelling has significantly improved. She has no complaints today. Initial history: This is a 58-year-old female who presents for evaluation of a suspected erythema nodosum. Patient stated that for the last 4 weeks she has been having diffuse swelling of both her lower extremities extending from her hips all the way into her feet. She has been having bilateral knee pain, especially with movement such as leaning on her knees. She states that she has been taking ibuprofen but it causes stomach upset. So she takes plenty of Tylenol with this relief. She went to the emergency room 2 days ago due to mildly painful swelling on her left salgado. In the ER erythema nodosum was suspected and patient was discharged on prednisone. She has not picked up the prednisone yet. She was evaluated by Dr. Whitman last year for a positive LYDIA. This was in the context of bilateral hand arthritis. She stated that she had left 3rd finger DIP swelling, the swelling seems to have resolved but she continues to have disfigurement. No autoimmune rheumatic disease was diagnosed around that time. She continues to have some mild pain in her hand joints. Associated with morning stiffness. She has history of vitiligo for many years. She denies any history of DVT/PE. 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 Family history of gastric cancer Family history of colorectal cancer Hepatitis C Surgical History History of bilateral breast reduction surgery History of hysterectomy History of clubfoot correction History of carpal tunnel surgery History of Family History Mother Diabetes CHF (congestive heart failure) Stroke Father Colon cancer Stroke Family/Other Substance use disorder Cancer Other Arthritis Social History Household Members: Family Household Members Other:: Homeless Housing: House Alcohol intake: current Alcohol intake frequency: holidays/special occasions only Alcohol type: beer Patient Tobacco Use Status: Former Tobacco user Tobacco use type: Cigarette e-Cigarette/Vaping Use: Never Used Second Hand Smoke Exposure: No service: No Current occupational status: employed Current occupation: [employer] Current occupational exposures/hazards: No Cognitive needs: No Hearing needs: No Vision needs: Yes Female Reproductive History Menstrual Total pregnancies: 7 Full term: 3 Ab induced: 4 Review of Systems Musc Denies arthralgias, Denies joint swelling and Denies stiffness Skin/Breast Denies rash Physical Exam Vital Signs: Last Vital Signs Pulse 86 02/25/24 16:14 BP 132/76 02/25/24 16:14 Pulse Ox 100 02/25/24 16:14 Oxygen Delivery Method Room Air 02/25/24 16:14 BMI result Body Mass Index 44.2 Const General: cooperative, healthy appearing and comfortable Nutritional Appearance: obese morbidly obese Orientation/consciousness: patient oriented x3 Limitations: no limitations HEENT Head: Yes normocephalic and Yes atraumatic Mouth: moist mucous membranes Resp Effort & Inspection: normal respiratory effort and able to speak in complete sentences Auscultation: clear to auscultation bilaterally Cardio Rate: regular rate Rhythm: regular rhythm Skin Other: A couple of circular swellings, 1 in the left mid salgado on the lateral aspect, the other 1 under lower lateral aspect of left salgado. Neither lesions are tender today Vitiligo of the left foot, hyperpigmented spots the left leg and thigh Hyperpigmented purplish rash below her posterior hairline Neuro General: patient oriented x3 Extrem Other: Right knee pain with full flexion and full extension without any warmth or swelling Bilateral ankle and feet swelling but no tenderness or warmth Mild osteoarthritic changes both hands but significant enlargement and disfigurement of left 3rd DIP No active synovitis of both wrists and hands today Normal nailfold capillaroscopy Results Reviewed Results Reviewed: Ordering Physician: Sasha Jerome DO Date of Service: 08/11/23 Procedure(s): CT chest wo IV con Accession Number(s): [id number] cc: Sasha Jerome DO; Lydia Gray MD~ ADDENDUM ADDENDUM: There is residual thymic tissue. Within the thymus (2:23), a 1.5 x 0.7 cm focal nodule is seen. The possibility of a thymic neoplasm such as a thymoma is raised. Recommend thymic MRI (with and without contrast and to include in and out of phase imaging). No pulmonary nodularity, solid or groundglass opacity, fibrosis or cyst formation is seen to suggest sarcoidosis. There is no pleural effusion or lymphadenopathy. A preliminary report was provided by the [facility] on 08/12/2023. Addendum Dictated By: Nahid Wilson MD Addendum Signed By:? <Electronically signed by Nahid Wilson MD in [place]> 08/12/23 1543 Addendum Cosigned By: DD/ /26/2000 TD/TT: / EXAMINATION:? CT CHEST WITHOUT CONTRAST CLINICAL INFORMATION:? Dyspnea; clinical question of sarcoidosis.?? COMPARISON:? Chest radiographs dated 06/12/2023. TECHNIQUE:? Multidetector volumetric CT imaging of the chest was done. Axial MIP volume rendering provided. Sagittal and coronal reformatted images were obtained.?? This CT examination was performed using dose optimization techniques as appropriate, variously including the following: *Automated exposure control *Adjustment of mA and/or kV according to patient size (this includes techniques or standardized protocols for targeted exams where dose is matched to indication/reason for exam; i.e. extremities or head) *Use of iterative reconstruction technique DLP: 588 mGy-cm FINDINGS: HELP DESK CONSULTANT: The lungs are symmetrically well-expanded and grossly clear. LUNGS: The lungs are clear with no evidence of inflammation or noncalcified nodules. A tiny benign, calcified granuloma is incidentally noted within the posterior basal segment of the left lower lobe (4:283). There are foci of minor scar/subsegmental atelectasis within the lingula and right middle lobe, without associated focal airway obstruction. No small airway thickening is seen. The central airways appear patent. MEDIASTINUM: The thyroid is unremarkable. There is mild residual thymus. No mediastinal or hilar lymphadenopathy is seen. There is no thoracic aneurysm. CORONARY ARTERY CALCIFICATION: None visualized on this study. PLEURA: There is no pleural effusion. No pleural mass or thickening.?? AXILLA: No lymphadenopathy.?? UPPER ABDOMEN: Unremarkable.?? OSSEOUS STRUCTURES: There is multi-level marked thoracolumbar spondylosis, with an appearance suggesting possible DISH (diffuse idiopathic skeletal hyperostosis). At T8-T9 through T11-T12, there is degenerative disc disease, with vacuum phenomenon. No acute or aggressive osseous findings is noted.?? CT/CT chest wo IV con IMPRESSION:? ? 1. No noncalcified nodule, mass, infiltrate or groundglass opacity is seen. ? 2. There are foci of minor scar/subsegmental atelectasis within the lingula and right middle lobe, without associated focal airway obstruction. ? 3. No thoracic lymphadenopathy or pleural effusion is seen. ? 4. There is no aggressive osseous lesion. Skeletal findings suggest possible DISH ? Fleischner guidelines were followed. Dictated By: Nahid Wilson MD Signed By: <Electronically signed by Nahid Wilson MD in [place]> 08/11/23 2051 US/US venous duplex LE BI IMPRESSION:? No DVT demonstrated in the bilateral lower extremity. Ordering Physician: Edison Castillo Date of Service: 08/11/23 Procedure(s): XR tibia fibula LT 2V Accession Number(s): [id number] cc: Edison Castillo; Lydia Gray MD~ EXAMINATION:? XR TIBIA AND FIBULA, LEFT CLINICAL INFORMATION:? Leg swelling?? COMPARISON:? None available.?? TECHNIQUE:? AP and lateral views of the left tibia and fibula were obtained. FINDINGS:? No fracture. No osseous lesions. There is atherosclerotic calcification. Degenerative disease of the knee. Diffuse soft tissue swelling. XR/XR tibia fibula LT 2V IMPRESSION: Diffuse soft tissue swelling. ? XR/XR knee LT 2V IMPRESSION: ? 1. There is moderate peripheral osteophyte formation of the medial and patellofemoral joint space compartments of the right knee, and very mild osteoarthritic change is seen of the lateral joint space compartment. ? 2. No fracture, dislocation or joint effusion is seen. ? ? EXAMINATION:? XR KNEE, LEFT? ? CLINICAL INFORMATION:? Pain.?? ? COMPARISON:? None available.?? ? TECHNIQUE:? AP and lateral views of the left knee. ? FINDINGS: Bony alignment and mineralization are normal. The lateral and medial joint space compartments are well-maintained and show mild peripheral osteophyte formation. There is marked narrowing of the patellofemoral compartment, with peripheral osteophyte formation. No fracture or dislocation is seen. There is a small joint effusion. No foreign body is seen.?? ? IMPRESSION: ? 1. There is tricompartment osteoarthritic change of the left knee, most pronounced of the patellofemoral compartment, where degenerative change is marked. ? 2. There is a small joint effusion. ? ? ?Ordering Physician: Lydia Gray MD Date of Service: 08/21/22 Procedure(s): XR hand LT 2V Accession Number(s): [id number] cc: Lydia Gray MD~ EXAMINATION:? Bilateral hand x-ray CLINICAL INFORMATION:? Pain?? COMPARISON:? None.?? TECHNIQUE:? 3 views of each hand?? FINDINGS: Right: Bone alignment is normal. No fracture or dislocation. Normal joint spaces. Normal soft tissues. Left: Bone alignment is normal. No fracture or dislocation. 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 Joint spaces are otherwise normal. Soft tissues are normal.?? XR/XR hand LT 2V IMPRESSION: Right: Unremarkable exam ? Left: Osteoarthritis at the DIP joints.?? Assessment & Plan Assessment & Plan (1) LYDIA positive: Comment: Hydroxychloroquine started 01/2024 Self DC 02/2024 due to skin rashes Code(s): R76.8 - Other specified abnormal immunological findings in serum Category: Medical Plan: This is a 58-year-old female with history of vitiligo who was initially referred for evaluation of suspected erythema nodosum. Patient has been having bilateral knee pain associated with swelling of the knees as well as the legs and who circular swellings, erythema nodosum was suspected. Initial Comprehensive serology showed a positive LYDIA with low C3 and C4 as well as positive anti CCP antibody. She has normal CHARLEY level, She likely has an underlying autoimmune rheumatic disease, seropositive RA versus SLE or a combination of both. Prednisone taper has been quite effective for inflammatory arthritis. Patient took hydroxychloroquine for approximately 6 weeks then self-discontinued it due to a rash on her nape and left forearm. She states that the rash on the left forearm resolved after she discontinued hydroxychloroquine. Upon evaluation today she does have a rash on her nape. This is similar to her exam last visit. Advised patient to make an appointment with Dermatology She is taking prednisone 5 mg daily alternating with 10 mg daily. This is controlling her inflammatory arthritis . Discussed long-term side effects of steroids. 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 Discussed risks and benefits of methotrexate. Patient did not agreed to start it. She will look it up. Labs before next visit in 6 weeks (2) Skin rash: Code(s): R21 - Rash and other nonspecific skin eruption Category: Medical Plan: On nape. Unclear association to hydroxychloroquine. Advised patient to request referral to Dermatology Plan I spent 25 minutes reviewing patient's chart, evaluating patient, ordering diagnostic workup, counseling patient, and documenting in the chart Orders: Orders Complete Blood Count Auto Diff 6 Weeks M05.9 - Rheumatoid arthritis with rheumatoid factor, unspecified Erythrocyte Sedimentation Rate 6 Weeks M05. - Rheumatoid arthritis with rheumatoid factor, unspecified Comprehensive Met. Panel 6 Weeks M0. - Rheumatoid arthritis with rheumatoid factor, unspecified C Reactive Protein 6 Weeks M05. - Rheumatoid arthritis with rheumatoid factor, unspecified Medications: Changed From prednisone Take 3 tabs daily for 1 week, 2 tabs daily for 1 week, 1 tab daily for 1 week then stop 42 tabs 0RF To prednisone 5 mg PO DAILY 30 tabs 0RF Coding Level of Care Code Est Pt Level 4 (50208) Diagnoses LYDIA positive R76.8 Skin rash R21
[2024-02-25 16:14] VITALS: BP 132/76; PULSE 86; O2SAT 100; BMI 44.2
== END 2024-02-25 16:47 | disposition home or self-care (01) ==
PROVIDERS: PCP Internal Medicine; Visit Provider Student in an Organized Health Care Education/Training Program
DX: R76.8 Other specified abnormal immunological findings in serum (principal); R21 Rash and other nonspecific skin eruption
CPT/HCPCS: 99214

== ENCOUNTER → 2024-02-25 16:10 | Outpatient (BNVA) | payer OTHER, SELFPAY | PROVIDERS: PCP Internal Medicine; Visit Provider Student in an Organized Health Care Education/Training Program ==

== ENCOUNTER 2024-04-16 09:31 | Outpatient (REF) | payer OTHER, SELFPAY ==
[2024-04-16 09:51] LABS: MANUAL DIFF FLAG NO
[2024-04-16 10:27] LABS: Basophils Percent Auto 0.4 % (0-2); Eosinophils Absolute Auto 0.1 X10*3/uL (0.0-0.4); Eosinophils Percent Auto 1.9 % (0-4); Hematocrit 38.3 % (37.0-47.0); Hemoglobin 12.7 g/dl (12.0-16.0); Imm Gran Abs Auto 0.01 X10*3/uL (0.00-0.03); Imm Gran Pct Auto 0.1 % (0.0-0.4); Lymphocytes Absolute Auto 2.7 X10*3/uL (1.2-4.9); Lymphocytes Percent Auto 37.2 % (20-40); Mean Corpuscular HGB Conc 33.2 g/dl (31.0-35.0); Mean Corpuscular Hemoglobin 31.5 pg (27.0-33.0); Mean Platelet Volume 9.4 fL (9.4-12.3); Monocytes Absolute Auto 0.4 X10*3/uL (0.1-1.2); Monocytes Percent Auto 5.8 % (2-11); Neutrophils Absolute Auto 3.9 x10*3/uL (2.0-8.3); Neutrophils Percent Auto 54.6 % (45-73); Platelet Count 250 X10*3/uL (160-400); Red Blood Count 4.03 X10*6/uL (4.20-5.50); Red Cell Distribution Width 13.2 % (11.0-16.0); White Blood Count 7.2 X10*3/uL (4.8-10.8)
[2024-04-16 11:08] LABS: Erythrocyte Sedimentation Rate 11 MM/HR (0-20)
[2024-04-16 11:15] LABS: Appearance Urine Clear; Color Urine Yellow; Glucose Urine UA Negative (Negative); Leukocyte Esterase Urine Negative (Negative); Nitrite Urine Negative (Negative); PH 5.5 (5.0-9.0); Specific Gravity - Urine 1.025 (1.005-1.025); Urine Blood Negative (Negative); Urine Ketones Negative (Negative); Urine Protein Negative (Neg-Trace)
[2024-04-16 11:24] LABS: Bacteria Urine None Seen (None Seen); Hyaline Casts Urine 0-2 /LPF (0-2); RBC Urine 0-2 /HPF (0-2); WBC Urine 0-5 /HPF (0-5)
[2024-04-16 11:29] LABS: Alanine Aminotransferase 21 U/L (0-31); Albumin Level 4.4 g/dL (3.5-5.0); Alkaline Phosphatase 54 U/L (39-117); Anion Gap 11 (12-20); Aspartate Amino Transferase 18 U/L (5-31); Bilirubin Total 0.3 mg/dL (0.0-1.0); Blood Urea Nitrogen 18 mg/dL (9-16); Calcium 9.4 mg/dL (8.4-10.2); Carbon Dioxide 28 mmol/L (22-29); Chloride 109 mmol/L (96-108); Estimated Glomerular Filt Rate > 60; Glucose Random 80 mg/dL (60-115); Potassium 3.6 mmol/L (3.3-5.1); Sodium 144 mmol/L (135-145); Total Protein 7.4 g/dL (6.5-8.0)
[2024-04-16 11:30] LABS: Creatinine Urine 148.21 mg/dL; Protein/Creatinine Ratio, Ur 0.05 (<0.2); Total Protein Urine Random 8 mg/dL (<12)
[2024-04-19 11:09] LABS: Complement C3 148 mg/dL (83-193)
[2024-04-19 23:32] LABS: Anti DNA DS Antibody <1 IU/mL
== END 2024-04-16 09:32 | disposition home or self-care (01) ==
LOC: HO.LAB 09:31
PROVIDERS: PCP Internal Medicine; Visit Provider Student in an Organized Health Care Education/Training Program
DX: M32.9 Systemic lupus erythematosus, unspecified (principal); M05.9 Rheumatoid arthritis with rheumatoid factor, unspecified
CPT/HCPCS: 36415; 80053; 81001; 82570; 84156; 85025; 85652; 86140; 86160; 86225

== ENCOUNTER 2024-05-01 14:40 | Emergency (ER) | payer OTHER, SELFPAY ==
[2024-05-01 14:43] VITALS: BP 144/81; PULSE 85; RESP 20; TEMP 36.7; O2SAT 99; BMI 42.9
--- NOTE | 2024-05-01 14:45 | ED_ITS ---
HPI - General Adult General Chief complaint: General Medical Stated complaint: lupus flare ups Time Seen by Provider: 05/01/24 15:06 Source: patient Mode of arrival: ambulatory Limitations: no limitations History of Present Illness ED Provider: Sandie Monk PA-C HPI narrative: Patient is a 59 year old assigned female at with a history of DM, asthma, HLD, and lupus presenting to the emergency department today with right knee and left elbow pain and swelling. Patient states that over the last few days she has had right knee swelling and pain as well as left elbow swelling and pain. Patient states that she believes this to be a lupus flare and the last time this happened she got prednisone and it helped it. Patient denies any dizziness, lightheadedness, abdominal pain, nausea, vomiting, fever, chills, blurry vision, double vision, loss of vision, chest pain, difficulty breathing, shortness of breath, back pain, night sweats, pain with urination, increased urinary frequency, increased urinary urgency, blood in her urine or stool, syncope or a near syncopal episode, recent trauma or falls, bowel incontinence, bladder incontinence, or any other complaints at this time. Onset (ago): day(s) Relieving factors: none Exacerbating factors: none Associated symptoms: denies other symptoms Treatments prior to arrival: none Related Data Previous Rx's ?Medication ?Instructions ?Recorded blood sugar diagnostic (FreeStyle #100 ea 08/13/22 Lite Strips) blood-glucose meter (FreeStyle #1 ea 08/13/22 Lite Meter kit) lancets 28 gauge (FreeStyle #100 ea 08/13/22 Lancets) acetaminophen 500 mg tablet 500 mg PO Q6H PRN pain #30 tabs 11/15/23 hydroxychloroquine 200 mg tablet 200 mg PO BID #60 tabs 12/16/23 tramadol 50 mg tablet 50 mg PO DAILY PRN pain 30 days 01/26/24 #20 tabs prednisone 5 mg tablet 5 mg PO DAILY #30 tabs 02/03/24 prednisone 5 mg tablet 5 mg PO DAILY #30 tabs 02/25/24 tirzepatide 5 mg/0.5 mL 5 mg (0.5 mL) subcut QWEEK 4 weeks 04/29/24 subcutaneous pen injector #2 mL (Ramon) prednisone 20 mg tablet See Rx Instructions .Route 05/01/24 .COMPLEX 12 days #26 tabs Allergies Allergy/AdvReac Type Severity Reaction Status Date / Time ibuprofen AdvReac Severe abdominal Verified 05/01/24 14:46 pain Xefpnna-UAU-LgX Reductase AdvReac Intermediate myalgia Verified 05/01/24 14:46 Inhibitor lisinopril AdvReac Intermediate Cough Uncoded 02/25/24 16:17 trulicity AdvReac Intermediate knee pain Uncoded 02/25/24 16:17 Review of Systems 2 Constitutional: Constitutional: Reports no additional constitutional complaints, Denies chills, Denies fever(s) and Denies night sweats Eyes: Eyes: Reports no additional eye complaints, Denies blurry vision, Denies change in vision, Denies diplopia, Denies eye discharge, Denies loss of vision and Denies eye pain ENT: Denies dizziness Cardiovascular: Cardiovascular: Reports no additional cardiovascular complaints, Denies chest pain, Denies lightheadedness, Denies Loss of Consciousness and Denies dyspnea Respiratory: Respiratory: Reports no additional respiratory complaints and Denies dyspnea Gastrointestinal: Gastrointestinal: Reports no additional gastrointestinal complaints, Denies abdominal pain, Denies melena, Denies hematochezia, Denies change in bowel habits and Denies change in stool character Genitourinary: Genitourinary: Denies hematuria, Denies urinary frequency, Denies dysuria, Denies urinary incontinence, Denies urinary hesitancy and Denies urinary urgency Musculoskeletal: Musculoskeletal: Reports no additional musculoskeletal complaints, Denies numbness and Denies tingling Comments: left elbow pain and swelling right knee pain and swelling Neurologic: Denies dizziness, Denies loss of vision, Denies numbness and Denies tingling Psychiatric: Psychiatric: Reports no additional psychiatric complaints Endocrine: Endocrine: Reports no additional endocrine complaints Hematologic/Lymphatic: Hematologic/Lymphatic: Reports no additional hematologic/lymphatic complaints Allergic/Immunologic: Allergic/Immunologic: Reports no additional allergic/immunologic complaints PMFSH Past Medical History Attestation statement: The following information was validated with the patient. 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 Family history of gastric cancer Family history of colorectal cancer Hepatitis C Surgical History History of bilateral breast reduction surgery History of hysterectomy History of clubfoot correction History of carpal tunnel surgery History of Family History Family History Mother Diabetes CHF (congestive heart failure) Stroke Father Colon cancer Stroke Family/Other Substance use disorder Cancer Other Arthritis Social History Social History Household Members: Family Household Members Other:: Homeless Housing: House Alcohol intake: current Alcohol intake frequency: holidays/special occasions only Alcohol type: beer Patient Tobacco Use Status: Former Tobacco user Tobacco use type: Cigarette e-Cigarette/Vaping Use: Never Used Second Hand Smoke Exposure: No Advance Directives: No Advance Directives Information Provided: Yes Do you have a plan to hurt others: No Plan service: No Current occupational status: employed 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 Current occupational exposures/hazards: No Cognitive needs: No Hearing needs: No Vision needs: Yes Physical Exam ED Vital Signs: Vital Signs - 24 hr 05/01/24 14:43 05/01/24 16:06 05/01/24 16:09 Temperature 98.0 F 98.2 F 98.2 F Pulse Rate 85 90 90 Respiratory Rate 20 16 18 Blood Pressure 144/81 H 153/72 H 153/72 H Pulse Oximetry 99 98 98 Oxygen Delivery Method Room Air Room Air Room Air BMI result Body Mass Index 42.9 Const General: cooperative, no acute distress, alert and awake Nutritional Appearance: well nourished Orientation/consciousness: patient oriented x3 Limitations: no limitations [facility] Head: Yes normal to inspection and Yes atraumatic Ears: hearing grossly normal bilaterally and external ears normal General nose exam: Normal external nose present, no nasal discharge noted and no epistaxis Face and sinus: Yes normal facial exam, No abrasion and No laceration Mouth: Normal oral and palatal mucosa present, no drooling and no muffled voice Eyes General: appearance normal, both eyes and all related structures Periorbital: periorbital findings normal Eyelids: Yes eyelids normal Conjunctivae: conjunctivae normal Pupils: Equal, round and reactive pupils present EOM: EOMs intact bilaterally Neck Neck: Yes normal visual inspection, Yes full ROM and Yes no lymphadenopathy Chest Chest palpation & inspection: normal inspection of the chest Resp Effort & Inspection: normal respiratory effort and able to speak in complete sentences GI Inspection: Yes normal to inspection Neuro General: patient oriented x3 and moves all extremities Cranial nerves: Yes Equal, round and reactive pupils present Cognition (Neuro): normal cognition Extrem Other: mild swelling present to the right knee mild swelling present to the left knee General: Yes full ROM and Yes capillary refill normal Psych Appearance: grossly normal Mental Status: mental status grossly normal Affect: normal affect Attitude: cooperative Thought process: Normal thought process present Thought content: Normal thought content present Insight: Good insight present (Psych) Course Course Course Narrative: This is a Rapid Medical Examination (RME) performed by Kayleigh Lopez PA-C in triage. Full HPI, ROS, assessment and treatment plan per primary provider in the Main ED. 59 yo female here for eval of left elbow and right knee pain/ swelling x4 days. states this may be a flare up of her Lupus. she is not currently on any treatment for this. has been taking motrin and tylenol w/o much improvement. no injury or trauma. Plan: labs, further eval in back Medical Decision Making Medical Decision Making MDM Narrative: Patient is a 59 year old assigned female at with a history of DM, asthma, HLD, and lupus presenting to the emergency department today with right knee and left elbow pain and swelling. Patient's physical exam was as noted in the physical exam portion of this note. Patient's blood work was unremarkable. I explained my physical exam findings as well as all test results to the patient. I answered all questions asked by the patient. I stressed the importance of the patient taking her medication as directed (either prescribed or as the over the counter packaging recommends). I stressed the importance of the patient following up with her primary care provider and area manager. I stressed the importance of the patient returning to the emergency department immediately if her symptoms were to worsen or if she were to develop any dizziness, shortness of breath, difficulty breathing, chest pain, blurry vision, loss of vision, nausea, vomiting, abdominal pain, fever, chills, back pain, or any other complaints. Patient verbalized agreement and understanding with this treatment plan and discharge. Differential Diagnosis Differential Diagnoses: The differential diagnosis associated with the presentation includes Lupus flare Arthalgia Admission/Observation Consideration of admission/observation: Escalation of care including admission/observation considered Patient would have been admitted to the hospital had her work up had any findings where hospital admission was appropriate and her clinical presentation warranted hospital admission. Lab Data [facility] Lab Attestation statement: I reviewed the patient's lab results. My interpretation of these results are in the [facility] Rationale portion of this note. 05/01/24 15:06 05/01/24 15:06 Labs: Lab Results 05/01/24 Range/Units 15:06 WBC 8.8 (4.8-10.8) X10*3/uL RBC 4.16 L (4.20-5.50) X10*6/uL Hgb 13.1 (12.0-16.0) g/dl Hct 39.7 (37.0-47.0) % MCV 95.4 (80.0-98.0) fL MCH 31.5 (27.0-33.0) pg MCHC 33.0 (31.0-35.0) g/dl RDW 13.1 (11.0-16.0) % Plt Count 241 (160-400) X10*3/uL MPV 9.1 L (9.4-12.3) fL Immature Gran % (Auto) 0.2 (0.0-0.4) % Neut % (Auto) 57.7 (45-73) % Lymph % (Auto) 34.1 (20-40) % Tillman % (Auto) 6.2 (2-11) % Eos % (Auto) 1.5 (0-4) % Baso % (Auto) 0.3 (0-2) % Lymph # (Auto) 3.0 (1.2-4.9) X10*3/uL Tillman # (Auto) 0.5 (0.1-1.2) X10*3/uL Eos # (Auto) 0.1 (0.0-0.4) X10*3/uL Baso # (Auto) 0.0 (0.0-0.2) X10*3/uL Abs Immat Gran (auto) 0.02 (0.00-0.03) X10*3/uL Absolute Neuts (auto) 5.1 (2.0-8.3) x10*3/uL Absolute Nucleated RBC 0.000 (0.0-0.012) X10*3/uL Nucleated RBC % (auto) 0.0 (0.0-0.2) /100WBC Sodium 141 (135-145) mmol/L Potassium 3.6 (3.3-5.1) mmol/L Chloride 107 (96-108) mmol/L Carbon Dioxide 27 (22-29) mmol/L Anion Gap 11 L (12-20) BUN 21 H (9-16) mg/dL Creatinine 0.74 (0.5-1.4) mg/dL Estim Creat Clear Calc 107.2 Estimated GFR > 60 Random Glucose 103 (60-115) mg/dL Uric Acid 5.1 (2.4-5.7) mg/dL Calcium 9.4 (8.4-10.2) mg/dL Magnesium 2.0 (1.6-2.6) mg/dL Total Bilirubin 0.4 (0.0-1.0) mg/dL AST 24 (5-31) U/L ALT 20 (0-31) U/L Alkaline Phosphatase 55 (39-117) U/L Total Protein 7.7 (6.5-8.0) g/dL Albumin 4.6 (3.5-5.0) g/dL Chronic Conditions Patient?s care impacted by: Diabetes Discharge Plan Discharge Clinical Impression: Joint pain Patient Disposition: Home, Self-Care Instructions: Arthralgia (ED) Additional Instructions: Follow up with your primary care provider and your area manager. Return to the emergency department immediately if your symptoms worsen or if you develop any dizziness, shortness of breath, difficulty breathing, chest pain, blurry vision, loss of vision, nausea, vomiting, abdominal pain, fever, chills, back pain, or any other complaints. Prescriptions: New prednisone 20 mg tablet See Rx Instructions .ROUTE .COMPLEX 12 Days Qty: 26 0RF Rx Instructions: 20 mg orally, Take 3 tablets for 5 days THEN; Take 2 tablets for 4 days THEN; Take 1 tablet for 3 days No Action hydroxychloroquine 200 mg tablet 200 mg PO BID Qty: 60 2RF tramadol 50 mg tablet 50 mg PO DAILY PRN (Reason: pain) 30 Days Qty: 20 0RF Mounjaro 5 mg/0.5 mL pen injector 5 mg subcut QWEEK 28 Days Qty: 2 0RF acetaminophen 500 mg tablet 500 mg PO Q6H PRN (Reason: pain) Qty: 30 0RF (DME) blood-glucose meter [FreeStyle Lite Meter] Kit See Rx Instructions .Route Qty: 1 0RF Rx Instructions: As directed (DME) FreeStyle Lite Strips Strip See Rx Instructions .Route Qty: 100 3RF Rx Instructions: Use 1 test strip once a day (DME) lancets [FreeStyle Lancets] 28 gauge misc See Rx Instructions .Route Qty: 100 3RF Rx Instructions: Use 1 lancet once a day prednisone 5 mg tablet 5 mg PO DAILY Qty: 30 0RF prednisone 5 mg tablet 5 mg PO DAILY Qty: 30 1RF Referrals: Lydia Gray MD [Primary Care Provider] - Stand Alone Forms: Work/School Release Interventions: ED Discharge Assessment Last Done: 05/01/24 16:09 Discharge Date/Time: 05/01/24 16:09 Print Language: Uzbek
[2024-05-01 15:11] LABS: MANUAL DIFF FLAG NO
[2024-05-01 15:13] LABS: Basophils Percent Auto 0.3 % (0-2); Eosinophils Absolute Auto 0.1 X10*3/uL (0.0-0.4); Eosinophils Percent Auto 1.5 % (0-4); Hematocrit 39.7 % (37.0-47.0); Hemoglobin 13.1 g/dl (12.0-16.0); Imm Gran Abs Auto 0.02 X10*3/uL (0.00-0.03); Imm Gran Pct Auto 0.2 % (0.0-0.4); Lymphocytes Percent Auto 34.1 % (20-40); Mean Corpuscular Hemoglobin 31.5 pg (27.0-33.0); Mean Corpuscular Volume 95.4 fL (80.0-98.0); Mean Platelet Volume 9.1 fL (9.4-12.3); Monocytes Absolute Auto 0.5 X10*3/uL (0.1-1.2); Monocytes Percent Auto 6.2 % (2-11); Neutrophils Absolute Auto 5.1 x10*3/uL (2.0-8.3); Neutrophils Percent Auto 57.7 % (45-73); Platelet Count 241 X10*3/uL (160-400); Red Blood Count 4.16 X10*6/uL (4.20-5.50); Red Cell Distribution Width 13.1 % (11.0-16.0); White Blood Count 8.8 X10*3/uL (4.8-10.8)
[2024-05-01 15:30] LABS: Uric Acid 5.1 mg/dL (2.4-5.7)
[2024-05-01 15:32] LABS: Alanine Aminotransferase 20 U/L (0-31); Albumin Level 4.6 g/dL (3.5-5.0); Anion Gap 11 (12-20); Aspartate Amino Transferase 24 U/L (5-31); Bilirubin Total 0.4 mg/dL (0.0-1.0); Blood Urea Nitrogen 21 mg/dL (9-16); Calcium 9.4 mg/dL (8.4-10.2); Carbon Dioxide 27 mmol/L (22-29); Chloride 107 mmol/L (96-108); Creatinine Clr Calc Pharmacy 107.2; Estimated Glomerular Filt Rate > 60; Glucose Random 103 mg/dL (60-115); Potassium 3.6 mmol/L (3.3-5.1); Sodium 141 mmol/L (135-145); Total Protein 7.7 g/dL (6.5-8.0)
[2024-05-01 16:06] VITALS: BP 153/72; PULSE 90; RESP 16; TEMP 36.8; O2SAT 98
[2024-05-01 16:09] VITALS: BP 153/72; PULSE 90; RESP 18; TEMP 36.8; O2SAT 98
[2024-05-01 16:47] LABS: Alkaline Phosphatase 55 U/L (39-117)
== END 2024-05-01 16:09 | disposition home or self-care (01) ==
PROVIDERS: Physician Assistant Medical; Emergency Provider Emergency Medicine; PCP Internal Medicine
DX: M25.50 Pain in unspecified joint (principal); M32.9 Systemic lupus erythematosus, unspecified; E11.9 Type 2 diabetes mellitus without complications; E78.5 Hyperlipidemia, unspecified; J45.909 Unspecified asthma, uncomplicated; Z79.631 Long term (current) use of antimetabolite agent
CPT/HCPCS: 36415; 80053; 83735; 84550; 85025; 99283

== ENCOUNTER 2024-05-12 08:07 | Outpatient (REF) | payer OTHER, SELFPAY ==
[2024-05-12 09:24] LABS: Alanine Aminotransferase 28 U/L (0-31); Albumin Level 4.3 g/dL (3.5-5.0); Alkaline Phosphatase 51 U/L (39-117); Anion Gap 12 (12-20); Aspartate Amino Transferase 18 U/L (5-31); Bilirubin Total 0.6 mg/dL (0.0-1.0); Blood Urea Nitrogen 20 mg/dL (9-16); Calcium 9.3 mg/dL (8.4-10.2); Carbon Dioxide 28 mmol/L (22-29); Chloride 106 mmol/L (96-108); Cholesterol 173 mg/dL (<200); Estimated Glomerular Filt Rate > 60; Glucose Fasting 103 mg/dL (60-99); HDL Cholesterol 58 mg/dL (>40); LDL Cholesterol Calculated 98 mg/dL (<100); Potassium 3.9 mmol/L (3.3-5.1); Sodium 142 mmol/L (135-145); Total Protein 7.1 g/dL (6.5-8.0); Triglycerides 88 mg/dL (<150)
[2024-05-12 09:31] LABS: Creatinine Urine 108.04 mg/dL
== END 2024-05-12 08:08 | disposition home or self-care (01) ==
LOC: HO.LAB 08:07
PROVIDERS: Absent Provider Internal Medicine; PCP Internal Medicine; Visit Provider Student in an Organized Health Care Education/Training Program
DX: E32.8 Other diseases of thymus (principal); E11.9 Type 2 diabetes mellitus without complications; E78.5 Hyperlipidemia, unspecified; E66.01 Morbid (severe) obesity due to excess calories; Z68.41 Body mass index [BMI] 40.0-44.9, adult; I10 Essential (primary) hypertension; M19.041 Primary osteoarthritis, right hand; M19.042 Primary osteoarthritis, left hand
CPT/HCPCS: 36415; 80053; 80061; 82043; 82570; 96127

== ENCOUNTER 2024-05-12 15:25 | Outpatient (AMB) | payer OTHER, SELFPAY ==
--- NOTE | 2024-05-12 16:57 | A.OFFPC_ITS ---
Vital Signs 05/12/24 17:01 Height 5 ft 5 in Weight 264 lb BMI 43.9 BP 130/78 Blood Pressure Location Lt brachial Position Sitting Intake Visit Reasons: 3 Month F/U Intake Note: Patient here for a 3 month follow up Slipcover Cutter Required: No Accompanied by: Self / Same As Patient Allergies ibuprofen Adverse Reaction (Severe, Verified 05/12/24 17:09) abdominal pain Rwbqxgy-ZVZ-QhR Reductase Inhibitor Adverse Reaction (Intermediate, Verified 05/12/24 17:09) myalgia lisinopril Adverse Reaction (Intermediate, Uncoded 05/12/24 17:09) Cough trulicity Adverse Reaction (Intermediate, Uncoded 05/12/24 17:09) knee pain Medication List - Last Reconciled 05/12/24 by Lydia Lopes MD blood sugar diagnostic (FreeStyle Lite Strips) Use 1 test strip once a day blood-glucose meter (FreeStyle Lite Meter kit) As directed lancets (FreeStyle Lancets) Use 1 lancet once a day tirzepatide (Mounjaro) 5 mg (0.5 mL) subcut QWEEK 4 weeks Tobacco use date assessed: 05/12/24 Dental Screening Dental Screen Date: 05/12/24 Did you have a dental visit in the last 12 months?: No Did you have a dental problem in the last 6 months where you did not have access to dental care?: No Was dental information given to patient?: Patient has dentist HPI HPI Comments 2 History of Present Illness Details This is a 59-year-old female with diabetes mellitus type 2, hypertension, hyperlipidemia, morbid obesity, bilateral knee osteoarthritis and thymic cyst that comes today for follow-up on her conditions. A1c within goal. I will increase Mounjaro. Blood pressure stable. LDL close to goal and she admits doing some dietary changes. She is morbidly obese with a BMI of 43.9 and was advised to do diet and exercise. Declines weight loss surgery for now. She does have knee osteoarthritis which in the past prednisone and tramadol has help. She usually use Tylenol and tramadol is only for severe pain. I will refill it. She also has a thymic cyst and was not able to do the MRI due to a very close space and MRI was rescheduled. Denies any chest pain or shortness on breath. 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 Family history of gastric cancer Family history of colorectal cancer Hepatitis C Surgical History History of bilateral breast reduction surgery History of hysterectomy History of clubfoot correction History of carpal tunnel surgery History of Family History Mother Diabetes CHF (congestive heart failure) Stroke Father Colon cancer Stroke Family/Other Substance use disorder Cancer Other Arthritis Social History (Updated 05/12/24 @ 17:14 by Lydia Lopes MD) Household Members: Family Household Members Other:: Homeless Housing: House Alcohol intake: current Alcohol intake frequency: holidays/special occasions only Alcohol type: beer and wine Patient Tobacco Use Status: Former Tobacco user Tobacco use type: Cigarette e-Cigarette/Vaping Use: Never Used Second Hand Smoke Exposure: No service: No Current occupational status: employed Current occupation: [id number] Current occupational exposures/hazards: No Cognitive needs: No Hearing needs: No Vision needs: Yes Questionnaire PHQ-9 Over the last 2 weeks, how often have you been bothered by any of the following problems? 1. Little interest or pleasure in doing things: not at all 2. Feeling down, depressed, or hopeless: not at all 3. Trouble falling or staying asleep, or sleeping too much: not at all 4. Feeling tired or having little energy: not at all 5. Poor appetite or overeating: not at all 6. Feeling bad about yourself - or that you are a failure or have let yourself or your family down: not at all 7. Trouble concentrating on things, such as reading the newspaper or watching television: not at all 8. Moving or speaking so slowly that other people could have noticed. Or the opposite - being so fidgety or restless that you have been moving around a lot more than usual: not at all 9. Thoughts that you would be better off or of hurting yourself in some way: not at all Total score: 0 Depression Screening Interpretation: Negative Depression Screening Done: Yes 96876 - PHQ-9 Billing: Yes Source: Developed by Drs. Adam Gomez, Tessa Mendez, Freddy Enriquez and colleagues, with an educational linda from [employer]. Thrive Questionnaire Date Thrive assessed: 05/12/24 I am a: Patient What is your living situation today?: I have a steady place to live Within the past 12 months, did the food you bought not last and you didn't have the money to get more?: Never true Within the past 12 months, did you worry whether your food would run out before you got money to buy more?: Never true Do you have trouble paying for medicines?: No Do you have trouble getting transportation to medical appointments?: No Do you have trouble paying your heating and electricity bill?: No Do you have trouble taking care of your child, family member or friend?: No Do you have trouble with day-to-day activities such as bathing, preparing meals, shopping, managing finances, etc.?: No Are you currently unemployed and looking for a job?: No Are you interested in more education?: No Please select the resources that you would like help with: None Currently or been in a relationship where the following occur: No concerns reported THRIVE Score: 0 AUDIT C Alcohol Use Questionnaire (AUDIT-C) 1. How often do you have a drink containing alcohol?: Monthly or less 2. How many drinks containing alcohol do you have on a typical day when you are drinking?: 1 or 2 3. How often do you have six or more drinks on one occasion?: Never Total Score: 1 Score Reviewed/Action Taken: No SRINI-7 AMB Questionnaire SRINI-7 Date SRINI - 7 assessed: 05/12/24 Feeling nervous, anxious, or on edge: 0 = Not at all Not being able to stop or control worryin = Not at all Worrying too much about different things: 0 = Not at all Trouble relaxin = Not at all Being so restless that it is hard to sit still: 0 = Not at all Becoming easily annoyed or irritable: 0 = Not at all Feeling afraid as if something awful might happen: 0 = Not at all Total SRINI-7 score (0-4 normal; 5-9 mild; 10-14 moderate; 15-21 severe): 0 Source: Developed by Cody Abelet B.W. Andrea, Freddy Enriquez and colleagues, with an educational linda from [employer]. SRINI-7 Assessment Billing SRINI-7 Assessment Tool: SRINI-7 Assessment 37899 Review of Systems Const All systems reviewed & are unremarkable except as noted in HPI and below Card Denies chest pain at rest, Denies chest pain with activity, Denies edema, Denies irregular heart rhythm, Denies claudication, Denies dyspnea, Denies dyspnea on exertion, Denies orthopnea, Denies paroxysmal nocturnal dyspnea and Denies slow heart rate Resp Denies cough, Denies dyspnea and Denies dyspnea on exertion GI Denies abdominal pain, Denies change in bowel habits, Denies excessive flatus, Denies nausea and Denies vomiting Musc Reports arthralgias Physical exam (Primary Care) Vital Signs: Last Vital Signs BP 130/78 05/12/24 17:01 BMI result Body Mass Index 43.9 BMI Assessment/Plan discussion: High BMI High, discussed plan: lifestyle, weight reduction, dietary and physical activity Tobacco/Smoking Status: Tobacco use Status Tobacco use date assessed 05/12/24 05/12/24 17:06 Patient Tobacco Use Status Former Tobacco user 05/12/24 17:14 Tobacco use type Cigarette 05/12/24 17:14 e-Cigarette/Vaping Use Never Used 05/12/24 17:14 PHQ-9: PHQ-9 Score PHQ-9: Total score 0 05/12/24 17:14 Depression Screening Interpretation: Negative Thrive Assessment: Date of Thrive Assessment Date Thrive assessed 05/12/24 05/12/24 16:59 Currently or been in a relationship where the following occur: No concerns reported Resp Effort & Inspection: normal respiratory effort Auscultation: clear to auscultation bilaterally Cardio Jugular venous distension: no JVD Rate: regular rate Rhythm: regular rhythm Heart sounds: S1 normal heart sound present and S2 normal heart sound present Extrem General: Yes full ROM Coding Level of Care Code Est Pt Level 4 (96608) Complex EM visit Add On G2211 Diagnoses Thymic cyst E32.8 Type 2 diabetes mellitus without complication, without long-term current use of insulin E11.9 Diabetes mellitus type: type 2 Diabetes mellitus nursing home insulin use: without terminal system operator use Diabetes mellitus complication status: without complication Hyperlipidemia LDL goal <70 E78.5 Morbid obesity with BMI of 40.0-44.9, adult E66.01; Z68.41 Essential hypertension I10 Osteoarthritis of hands, bilateral M19.041; M19.042 Additional Codes SRINI-7 Assessment Billing - SRINI-7 Assessment Tool: SRINI-7 Assessment 23870 ([id number]) PHQ-9 - 64373 - PHQ-9 Billing: Yes ([id number]) Time Spent (min) 23 Assessment & Plan Assessment & Plan (1) Thymic cyst: Code(s): E32.8 - Other diseases of thymus Category: Medical (2) Diabetes mellitus: Code(s): E11.9 - Type 2 diabetes mellitus without complications Category: Medical Qualifiers: Diabetes mellitus type: type 2 Diabetes mellitus terminal system operator insulin use: without terminal system operator use Diabetes mellitus complication status: without complication Qualified Code(s): E11.9 - Type 2 diabetes mellitus without complications (3) Hyperlipidemia LDL goal <70: Code(s): E78.5 - Hyperlipidemia, unspecified Category: Medical (4) Morbid obesity with BMI of 40.0-44.9, adult: Code(s): E66.01 - Morbid (severe) obesity due to excess calories; Z68.41 - Body mass index [BMI] 40.0-44.9, adult Category: Medical (5) Essential hypertension: Code(s): I10 - Essential (primary) hypertension Category: Medical (6) Osteoarthritis of hands, bilateral: Comment: L>R Code(s): M19.041 - Primary osteoarthritis, right hand; M19.042 - Primary osteoarthritis, left hand Category: Medical Plan For diabetes I will increase Mounjaro to help her also with her weight. Was advised to do diet and exercise for her morbid obesity. For knee osteoarthritis I will start her on tramadol as needed. Patient is aware that can cause addict ion and sedation. Her blood pressure has been stable without the need of medication. For her pure hypercholesterolemia she will continue diet and it will be repeated in a few months. Her LDL goal should be less than 70. Orders: Orders SARS-CoV2/FLU/RSV Today R09.89 - Other specified symptoms and signs involving the circulatory and respiratory systems AMB Hemoglobin A1c Today E11.9 - Type 2 diabetes mellitus without complications Medications: New tramadol 50 mg PO BID PRN 15 tabs 0RF pain 30 days tirzepatide (Mounjaro) 7.5 mg (0.5 mL) subcut QWEEK 2 mL 0RF 4 weeks E11.9 - Type 2 diabetes mellitus without complications Discontinued tirzepatide (Mounjaro) Discontinued Reason: Patient Completed Course 5 mg (0.5 mL) subcut QWEEK 4 weeks 2 mL 0RF
[2024-05-12 17:01] VITALS: BP 130/78; BMI 43.9
== END 2024-05-12 17:22 | disposition home or self-care (01) ==
PROVIDERS: PCP Internal Medicine; Visit Provider Internal Medicine
DX: E11.69 Type 2 diabetes mellitus with other specified complication (principal); E32.8 Other diseases of thymus; E66.01 Morbid (severe) obesity due to excess calories; Z68.41 Body mass index [BMI] 40.0-44.9, adult; E78.5 Hyperlipidemia, unspecified; I10 Essential (primary) hypertension; M19.041 Primary osteoarthritis, right hand; M19.042 Primary osteoarthritis, left hand

== ENCOUNTER 2024-05-19 14:51 | Outpatient (AMB) | payer OTHER, SELFPAY ==
--- NOTE | 2024-05-19 15:20 | A.OFFVIS_ITS ---
Vital Signs 05/19/24 15:27 Height 5 ft 5 in Weight 257 lb 0.944 oz BMI 42.8 BP 152/90 H Blood Pressure Location Lt brachial Position Sitting Respiration 18 Pulse 95 Pulse Source Pulse Oximeter Pulse Oximetry (%) 97 Oxygen Delivery Method Room Air Intake Visit Reasons: RHUPUS Intake Note: Patient presents for Rhupus. Allergies ibuprofen Adverse Reaction (Severe, Verified 05/19/24 15:26) abdominal pain Xedbhvl-UNG-QiR Reductase Inhibitor Adverse Reaction (Intermediate, Verified 05/19/24 15:26) myalgia lisinopril Adverse Reaction (Intermediate, Uncoded 05/12/24 17:09) Cough trulicity Adverse Reaction (Intermediate, Uncoded 05/12/24 17:09) knee pain Medication List - Last Reconciled 05/19/24 by Prashant Collins MD blood sugar diagnostic (FreeStyle Lite Strips) Use 1 test strip once a day blood-glucose meter (FreeStyle Lite Meter kit) As directed folic acid 1 mg PO DAILY lancets (FreeStyle Lancets) Use 1 lancet once a day methotrexate sodium Take 6 tablets once weekly for 2 weeks then 8 tablets once weekly tirzepatide (Mounjaro) 7.5 mg (0.5 mL) subcut QWEEK 4 weeks tramadol 50 mg PO BID PRN 30 days HPI Comments Details: 59-year-old female with newly diagnosed RA/lupus overlap returns for follow-up. After her last visit with me we discussed starting methotrexate for her inflammatory arthritis. Patient did not want to start it and wanted to think about it, back in April she presented to the hospital with knee pain and swelling, she was prescribed prednisone taper with good relief. Today patient stated that she doing well, she continues to have achy joints most bothersome is her right knee. Initial history: This is a 58-year-old female who presents for evaluation of a suspected erythema nodosum. Patient stated that for the last 4 weeks she has been having diffuse swelling of both her lower extremities extending from her hips all the way into her feet. She has been having bilateral knee pain, especially with movement such as leaning on her knees. She states that she has been taking ibuprofen but it causes stomach upset. So she takes plenty of Tylenol with this relief. She went to the emergency room 2 days ago due to mildly painful swelling on her left salgado. In the ER erythema nodosum was suspected and patient was discharged on prednisone. She has not picked up the prednisone yet. She was evaluated by Dr. Whitman last year for a positive LAKHWINDER. This was in the context of bilateral hand arthritis. She stated that she had left 3rd finger DIP swelling, the swelling seems to have resolved but she continues to have disfigurement. No autoimmune rheumatic disease was diagnosed around that time. She continues to have some mild pain in her hand joints. Associated with morning stiffness. She has history of vitiligo for many years. She denies any history of DVT/PE. 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 Family history of gastric cancer Family history of colorectal cancer Hepatitis C Surgical History History of bilateral breast reduction surgery History of hysterectomy History of clubfoot correction History of carpal tunnel surgery History of Family History Mother Diabetes CHF (congestive heart failure) Stroke Father Colon cancer Stroke Family/Other Substance use disorder Cancer Other Arthritis Social History Household Members: Family Household Members Other:: Homeless Housing: House Alcohol intake: current Alcohol intake frequency: holidays/special occasions only Alcohol type: beer and wine Patient Tobacco Use Status: Former Tobacco user Tobacco use type: Cigarette e-Cigarette/Vaping Use: Never Used Second Hand Smoke Exposure: No service: No Current occupational status: employed Current occupation: [employer] Current occupational exposures/hazards: No Cognitive needs: No Hearing needs: No Vision needs: Yes Female Reproductive History Menstrual Total pregnancies: 7 Full term: 3 Ab induced: 4 Review of Systems Musc Reports arthralgias, Reports joint swelling and Reports stiffness Physical Exam Vital Signs: Last Vital Signs Pulse 95 05/19/24 15:27 Resp 18 05/19/24 15:27 BP 152/90 H 05/19/24 15:27 Pulse Ox 97 05/19/24 15:27 Oxygen Delivery Method Room Air 05/19/24 15:27 BMI result Body Mass Index 42.8 Const General: cooperative, healthy appearing and comfortable Nutritional Appearance: obese morbidly obese Orientation/consciousness: patient oriented x3 Limitations: no limitations HEENT Head: Yes normocephalic and Yes atraumatic Mouth: moist mucous membranes Resp Effort & Inspection: normal respiratory effort and able to speak in complete sentences Auscultation: clear to auscultation bilaterally Cardio Rate: regular rate Rhythm: regular rhythm Skin Other: A couple of circular swellings, 1 in the left mid salgado on the lateral aspect, the other 1 under lower lateral aspect of left salgado. Neither lesions are tender today Vitiligo of the left foot, hyperpigmented spots the left leg and thigh Neuro General: patient oriented x3 Extrem Other: Right knee warmth, mild swelling and pain with full flexion and full extension Mild osteoarthritic changes both hands but significant enlargement and disfigurement of left 3rd DIP No active synovitis of both wrists and hands today Normal nailfold capillaroscopy Assessment & Plan Assessment & Plan (1) LAKHWINDER positive: Comment: Hydroxychloroquine started 01/2024 Self DC 02/2024 due to skin rashes Code(s): R76.8 - Other specified abnormal immunological findings in serum Category: Medical Plan: This is a 58-year-old female with history of vitiligo who was initially referred for evaluation of suspected erythema nodosum. Patient has been having bilateral knee pain associated with swelling of the knees as well as the legs and who circular swellings, erythema nodosum was suspected. Initial Comprehensive serology showed a positive LAKHWINDER with low C3 and C4 as well as positive anti CCP antibody. She has normal CHARLEY level, She likely has an underlying autoimmune rheumatic disease, seropositive RA versus SLE or a combination of both. Prednisone taper has been quite effective for inflammatory arthritis. Patient took hydroxychloroquine for approximately 6 weeks then self-discontinued it due to a rash on her nape and left forearm. She states that the rash on the left forearm resolved after she discontinued hydroxychloroquine. She continues to get episodes of inflammatory arthritis, she presented to the hospital last month with right knee swelling and received prednisone taper with relief. She continues to have active synovitis on exam today. Discussed the need for DMARDs. Discussed risks and benefits of methotrexate. Patient agreed to proceed. 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
[2024-05-19 15:27] VITALS: BP 152/90; PULSE 95; RESP 18; O2SAT 97; BMI 42.8
== END 2024-05-19 15:32 | disposition home or self-care (01) ==
PROVIDERS: PCP Internal Medicine; Visit Provider Student in an Organized Health Care Education/Training Program
DX: R76.8 Other specified abnormal immunological findings in serum (principal); M05.79 Rheumatoid arthritis with rheumatoid factor of multiple sites without organ or systems involvement; Z79.631 Long term (current) use of antimetabolite agent
CPT/HCPCS: 99214

== ENCOUNTER → 2024-05-19 14:51 | Outpatient (BNVA) | payer OTHER, SELFPAY | PROVIDERS: PCP Internal Medicine; Visit Provider Student in an Organized Health Care Education/Training Program ==

== ENCOUNTER 2024-07-13 15:14 | Outpatient (REF) | payer OTHER, SELFPAY ==
[2024-07-13 15:26] LABS: MANUAL DIFF FLAG NO
[2024-07-13 15:36] LABS: Basophils Percent Auto 0.4 % (0-2); Eosinophils Absolute Auto 0.2 X10*3/uL (0.0-0.4); Eosinophils Percent Auto 2.1 % (0-4); Hematocrit 36.9 % (37.0-47.0); Hemoglobin 12.2 g/dl (12.0-16.0); Imm Gran Abs Auto 0.02 X10*3/uL (0.00-0.03); Imm Gran Pct Auto 0.3 % (0.0-0.4); Mean Corpuscular HGB Conc 33.1 g/dl (31.0-35.0); Mean Corpuscular Hemoglobin 31.7 pg (27.0-33.0); Mean Corpuscular Volume 95.8 fL (80.0-98.0); Mean Platelet Volume 9.1 fL (9.4-12.3); Monocytes Absolute Auto 0.5 X10*3/uL (0.1-1.2); Neutrophils Absolute Auto 3.8 x10*3/uL (2.0-8.3); Neutrophils Percent Auto 51.2 % (45-73); Platelet Count 248 X10*3/uL (160-400); Red Blood Count 3.85 X10*6/uL (4.20-5.50); Red Cell Distribution Width 14.4 % (11.0-16.0); White Blood Count 7.5 X10*3/uL (4.8-10.8)
[2024-07-13 16:14] LABS: Alanine Aminotransferase 21 U/L (0-31); Albumin Level 4.2 g/dL (3.5-5.0); Anion Gap 10 (12-20); Aspartate Amino Transferase 19 U/L (5-31); Bilirubin Total 0.3 mg/dL (0.0-1.0); Blood Urea Nitrogen 18 mg/dL (9-16); C Reactive Protein 0.26 mg/dL (< or = 0.50); Calcium 9.3 mg/dL (8.4-10.2); Carbon Dioxide 27 mmol/L (22-29); Chloride 110 mmol/L (96-108); Estimated Glomerular Filt Rate > 60; Glucose Random 151 mg/dL (60-115); Potassium 3.7 mmol/L (3.3-5.1); Sodium 143 mmol/L (135-145); Total Protein 7.5 g/dL (6.5-8.0)
[2024-07-13 16:38] LABS: Erythrocyte Sedimentation Rate 13 MM/HR (0-20)
[2024-07-13 17:46] LABS: Alkaline Phosphatase 63 U/L (39-117)
--- OUTSIDE RECORDS SUMMARY | 2024-07-13 18:29 | XMS_ITS | Clinical Summary ---
Author Organization [facility] Address [address] [place] [address] Care Team Providers Care Manager Facility Name Role Phone Unavailable Primary Care Provider Unavailabl e Social History Tobacco Use Types Packs/Day Years Used Date Smoking Tobacco: Never Assessed Comments Unknown Sex and Gender Information Value Date Recorded Sex Assigned at Not on file Legal Sex Female 2:10 AM EST Gender Identity Not on file Sexual Orientation Not on file Plan of Treatment Health Maintenance Due Date Last Done Comments Breast Cancer Screening 1967 DTaP,Tdap,and Td Vaccines (1 - Tdap) 1986 Hepatitis B Vaccines (1 of 3 - 19+ 3-dose series) 1986 Cervical Cancer Screening: P ap Smear 1988 Pneumococcal Vaccine: 50+ Ye ars (1 of 1 - PCV) 2017 Zoster Vaccines (1 of 2) 2017 Colorectal Cancer Screening: Colonoscopy 04/07/2022 Depression Screening 04/07/2022 HIV Screening 04/07/2022 Hepatitis C Screening 04/07/2022 Social Influencers of Health Screening 04/07/2022 COVID-19 Vaccine ( - 2023-2 5 season) 2024 Influenza Vaccine (#1) 2024 HIB Vaccines Aged Out No longer eligi ble based on patient's age to complete this topic HPV Vaccines Aged Out No longer eligi ble based on patient's age to complete this topic Hepatitis A Vaccines Aged Out No long er eligible based on patient's age to complete this topic IPV Vaccines Aged Out No longer eligi ble based on patient's age to complete this topic MMR Vaccines Aged Out No longer eligi ble based on patient's age to complete this topic Meningococcal ACWY Vaccine Aged Out N o longer eligible based on patient's age to complete this topic Meningococcal B Vacine Aged Out No lo nger eligible based on patient's age to complete this topic Pneumococcal Vaccine: Pediat rics (0 to 5 Years) and At-Risk Patients (6 to 64 Years) Aged Out No longer eligible b ased on patient's age to complete this topic RSV Immunization Patients Un karen 20 months Aged Out No longer eligible b ased on patient's age to complete this topic Varicella Vaccines Aged Out No longer eligible based on patient's age to complete this topic
--- OUTSIDE RECORDS SUMMARY | 2024-07-13 18:30 | XMS_ITS | Patient Health Record ---
Author Organization [facility] Address [address], [place] [id number] Care Team Providers Care Manager Strategy & Account Name Role Phone [facility] Primary Care Provider Emma Castillo Unavailable Allergies Allergen (clinical drug ingredient) Drug/Non Drug Allergy documented on EMR Reaction Allergy Type Onset Date Status Seasonal allergies (uncoded) shortness of breath Allergy Active Reason For Referral No Information Medications Medication SIG (Take, Route, Frequency, Duration) Notes Start Date End Date Status losartan 50 mg 1 tab(s) orally once a day for 30 day(s) 12/19/2017 Active Cartia XT 180 mg/24 hours 1 cap(s) orall y once a day Not-Taking Nicoderm C-Q 21 mg/24 hr 1 PATCH transde rmally once a day for 28 days 10/14/2017 Not-Taking levalbuterol 45 mcg/inh 2 puff(s) inhale d every 4 hours for 30 day(s) PRN Active cetirizine 10 mg 1 tab(s) orally once a day for 30 day(s) OTC Active Nicorette 4 mg 1 GUM chewed every hour for 30 day(s) 11/12/2017 Active Breo Ellipta 200 mcg-25 mcg/inh 1 puff(s) inhaled once a day for 30 day(s) Active albuterol 90 mcg/inh 2 puff(s) inhaled 4 times a day prn wheezing. Must see provider for refill for 30 day(s) 12/19/2017 Active hydroCHLOROthiazide 25 mg 1 cap(s) orall y once a day for 30 day(s) 10/14/2017 Active Social History Tobacco Use: Social History Observation Description Date Details (start date - stop date) Current Smoker NA - NA Tobacco Use Assessment MU Question Answer Notes What is your current smoking status? current smo ker How often do you smoke? every day How many cigarettes a day do you smoke? 6-10 How soon after you wake up do you smoke your fir st cigarette? 6-30 minutes Are you interested in quitting? ready to quit Patient counseled on the john botello of tobacco use and advised to quit: 10/13/2017 Problems Problem Type SNOMED Code ICD Code Onset Dates Problem Status W/U Status Risk Notes Problem Morbid obesity (045886974) Morbid (severe) obesity due to excess calories (E66.01) Active confirmed Problem Obesity due to excess calories (195012344) Other obesity due to excess calories (E66.09) Active confirmed Problem Obesity (860527024) Obesity, unspecified (E66.9) Active confirmed Problem Tobacco user (686705698) Nicotine dependence, unspecified, uncomplicated (F17.200) Active confirmed Problem Mental disorder (84596996) Mental disorder, not otherwise specified (F99) Active confirmed Problem Essential hypertension (86759983) Essential (primary) hypertension (I10) Active confirmed Problem Wheezing (48876720) Wheezing (R06.2) Active confirmed Problem Screening for malignant neoplasm of colon (735240384) Encounter for screening for malignant neoplasm of colon (Z12.11) Active confirmed Problem Screening for malignant neoplasm of breast (563607035) Encounter for screening mammogram for malignant neoplasm of breast (Z12.31) Active confirmed Problem Screening for osteoporosis (317754278) Encounter for screening for osteoporosis (Z13.820) Active confirmed Problem Hysterectomy (762133422) Acquired absence of both cervix and uterus (Z90.710) Active confirmed Problem Prediabetes (132414733) Prediabetes (R73.03) Active confirmed New Dx Plan Of Treatment Pending Test Test Name Order Date Bone mineral density (Dexa scan) 018 Mammogram-Screening 10/14/2017 EKG 10/14/2017 QUANTIFERON(R)-TB GOLD 11/12/2017 FECAL GLOBIN BY IMMUNOCHEMISTRY 02/13/20 18 Future Test Test Name Order Date HEMOGLOBIN A1c 06/19/2018 Insurance Providers Payer Name Payer Address Payer Phone Subscriber Number Group Number Insured Name Patient Relationship to Insured Coverage Start Date Coverage End Date [facility] [employer]Net Plan [address] [address] [place] [address] [id number] Dorothea Tolbert Self - patient is the insured Medical (General) History Medical History History ICD Code HTN Seasonal Allergies Per old medical records Clair delma Herpes, Carpaj Nathalie bialterally, MDD, Panic disorder with agorophobia, Moderate persistent asthma, vitamin D deficiency, Hx MJ/ETOH Surgical History Surgery Date(Month/Year) Right Carpal tunnel surgery August 2017 x 2 1985 and 1998 Breast reduction 2004 Bilateral leg surgery As child Hysterectomy 2009
== END 2024-07-13 15:15 | disposition home or self-care (01) ==
LOC: HO.LAB 15:14
PROVIDERS: PCP Internal Medicine; Visit Provider Student in an Organized Health Care Education/Training Program
DX: M05.9 Rheumatoid arthritis with rheumatoid factor, unspecified (principal); Z79.631 Long term (current) use of antimetabolite agent
CPT/HCPCS: 36415; 80053; 85025; 85652; 86140

== ENCOUNTER 2024-08-03 15:54 | Outpatient (AMB) | payer OTHER, SELFPAY ==
--- NOTE | 2024-08-03 15:55 | A.OFFVIS_ITS ---
Vital Signs 08/03/24 16:01 Height 5 ft 5 in Weight 242 lb 4.608 oz BMI 40.3 BP 140/90 H Blood Pressure Location Lt brachial Position Sitting Pulse 98 Pulse Source Pulse Oximeter Pulse Oximetry (%) 98 Oxygen Delivery Method Room Air Intake Visit Reasons: Rhupus Intake Note: Patient presents for Rhupus. Allergies ibuprofen Adverse Reaction (Severe, Verified 08/03/24 16:00) abdominal pain [id number]-YLU-MgL Reductase Inhibitor Adverse Reaction (Intermediate, Verified 08/03/24 16:00) myalgia lisinopril Adverse Reaction (Intermediate, Uncoded 05/12/24 17:09) Cough trulicity Adverse Reaction (Intermediate, Uncoded 05/12/24 17:09) knee pain Medication List - Last Reconciled 08/03/24 by Cherry Card MD blood sugar diagnostic (FreeStyle Lite Strips) Use 1 test strip once a day blood-glucose meter (FreeStyle Lite Meter kit) As directed folic acid 1 mg PO DAILY lancets (FreeStyle Lancets) Use 1 lancet once a day methotrexate sodium 20 mg (8 x 2.5 mg) PO QWEEK 90 days tirzepatide (Mounjaro) 7.5 mg (0.5 mL) subcut QWEEK 4 weeks tramadol 50 mg PO BID PRN 30 days HPI Comments Details: Patient is a 59-year-old female with hx of vitiligo, diabetes and Rhupus (RA/Lupus overlap) here today for follow up Interval History: Patient last seen 05/19/[address] Collins. At that visit her Plaquenil was stopped because of a rash and she was started on methotrexate Since starting methotrexate patient has noticed improvement in her nodules, joint pain and swelling. Rheumatologic History: RA/Lupus +CCP/+LAKHWINDER/inflammatory nodules and arthritis Initial history by Dr. Collins: This is a 58-year-old female with history of vitiligo who was initially referred for evaluation of suspected erythema nodosum. Patient has been having bilateral knee pain associated with swelling of the knees as well as the legs and who circular swellings, erythema nodosum was suspected. Initial Comprehensive serology showed a positive LAKHWINDER with low C3 and C4 as well as positive anti CCP antibody. She has normal CHARLEY level, She likely has an underlying autoimmune rheumatic disease, seropositive RA versus SLE or a combination of both. Prednisone taper has been quite effective for inflammatory arthritis. Patient took hydroxychloroquine for approximately 6 weeks then self-discontinued it due to a rash on her nape and left forearm. She states that the rash on the left forearm resolved after she discontinued hydroxychloroquine. 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 Family history of gastric cancer Family history of colorectal cancer Hepatitis C Surgical History History of bilateral breast reduction surgery History of hysterectomy History of clubfoot correction History of carpal tunnel surgery History of Family History Mother Diabetes CHF (congestive heart failure) Stroke Father Colon cancer Stroke Family/Other Substance use disorder Cancer Other Arthritis Social History Household Members: Family Household Members Other:: Homeless Housing: House Alcohol intake: current Alcohol intake frequency: holidays/special occasions only Alcohol type: beer and wine Patient Tobacco Use Status: Former Tobacco user Tobacco use type: Cigarette e-Cigarette/Vaping Use: Never Used Second Hand Smoke Exposure: No service: No Current occupational status: employed 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 Current occupational exposures/hazards: No Cognitive needs: No Hearing needs: No Vision needs: Yes Review of Systems Const Details: Review of Systems Constitutional: Denies fever, chills, weight loss ENT: Denies vision changes, eye pain or eye redness, dental caries, dry mouth GI: Denies nausea, vomiting, diarrhea, abdominal pain, change in BM Pulm: Denies SOB, DIOP, hemoptysis, wheezing Cards: Denies chest pain, palpitations Skin: Denies Raynaud's, rash, nail changes, photosensitivity, BUSINESS LAW INSTRUCTOR: Denies headaches, weakness, paresthesias, recurrent falls MSK: as per HPI All other systems reviewed and are unremarkable except noted above Physical Exam Vital Signs: Last Vital Signs Pulse 98 08/03/24 16: BP 140/90 H 08/03/24 16:01 Pulse Ox 98 08/03/24 16:01 Oxygen Delivery Method Room Air 08/03/24 16:01 BMI result Body Mass Index 40.3 Vital signs reviewed Physical Examination CONSTITUITIONAL Patient alert and cooperative. Well appearing and in no apparent painful distress HEENT Conjunctiva and sclera clear. ?Pupils equal round and reactive to light. ?No lymphadenopathy. ? CHEST/RESPIRATORY SYSTEM Normal respiratory effort and able to speak in complete sentences. ?Clear to auscultation bilaterally. ?No crackles, rales, rhonchi, wheezes heard. CARDIAC SYSTEM Regular rate and rhythm. ?S1 and S2 heard no murmurs. ?Radial pulses intact bilaterally MSK Hands: ?Good mold runner strength bilaterally. No deformities noted. ?No synovitis noted to the MCPs, PIPs or DIPs. ?No tenderness to palpation of these joints. Wrists: ?Full range of motion at the wrists without pain. ?No tenderness to palpation or synovitis noted to the wrists. Elbows: Full range of motion without pain. No tenderness, weakness, swelling, increased warmth or erythema. Shoulders: Full range of motion without pain. No tenderness, weakness, swelling, increased warmth or erythema. Hips: Full range of motion without pain. Hip bursa: No tenderness to palpation Knees: ?Full range of motion. ?No tenderness, swelling, increased warmth or erythema.?No effusion or crepitations Ankles: Full range of motion. ?No tenderness, swelling, increased warmth or erythema.? Feet: ?Negative squeeze test. ?No tenderness to palpation or swelling of the MTPs. Tender points:?No tenderness to palpation of the bilateral trapezius, supraspinatus, greater trochanters, anterior costochondral junctions, bilateral gluteal areas, bilateral suboccipital muscle insertions SKIN Tender nodules noted to the skin anterior to the shins of bilateral lower extremities. This is improving as per patient Results Reviewed Results Reviewed: Laboratory Tests 07/13/24 15:25 WBC 7.5 RBC 3.85 L Hgb 12.2 Hct 36.9 L Plt Count 248 ESR 13 Sodium 143 Potassium 3.7 Chloride 110 H Carbon Dioxide 27 BUN 18 H Creatinine 0.69 Calcium 9.3 Total Bilirubin 0.3 AST 19 ALT 21 Alkaline Phosphatase 63 C-Reactive Protein 0.26 Immunology labs 07/26/22 08/13/23 04/16/24 16:09 12:36 09:50 Rheumatoid Factor < 13.0 Cycl Citrul Peptide IgG 157 H LAKHWINDER Screen POSITIVE A LAKHWINDER Titer 1:160 H Complement C3 46 L 148 Complement C4 12 L 36 Infectious serologies 08/13/23 12:36 Hepatitis A IgM Ab Nonreactive Hep Bs Antigen Negative Hep Bs Antibody REACTIVE Hep B Core Total Ab Nonreactive Hepatitis C Ab (EIA) Nonreactive TB Test (T-Spot) Com Negative Assessment & Plan Assessment & Plan (1) Seropositive rheumatoid arthritis: Comment: Lupus/RA overlap +CCP, ++LAKHWINDER, low complements, arthritis, inflammatory nodules Hydroxychloroquine started 01/2024 Self DC 02/2024 due to skin rashes Code(s): M05.9 - Rheumatoid arthritis with rheumatoid factor, unspecified Category: Medical Plan: #Seropositive RA/Lupus overlap Patient is a 59 y.o. female with seropositive rheumatoid arthritis/lupus overlap here today for follow up. Doing well on the methotrexate with improvement in her inflammatory nodules and joint pain. 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 Limit alcohol and avoid Bactrim ? Monitoring: ?CBC, BMP, LFTs every 3-4 months and hepatitis serologies as needed Plan I spent 30 minutes reviewing the record and labs, taking a history, examining the patient, discussing the treatment plan, ordering diagnostic work up and documenting in the medical record Orders: Orders Anti DNA DS Antibody 3 Months M05.9 - Rheumatoid arthritis with rheumatoid factor, unspecified Complete Blood Count Auto Diff 3 Months M05.9 - Rheumatoid arthritis with rheumatoid factor, unspecified Erythrocyte Sedimentation Rate 3 Months M05.9 - Rheumatoid arthritis with rheumatoid factor, unspecified Hepatitis A,B,C Profile 3 Months M05.9 - Rheumatoid arthritis with rheumatoid factor, unspecified Complement C3 3 Months M05.9 - Rheumatoid arthritis with rheumatoid factor, unspecified Complement C4 3 Months M05.9 - Rheumatoid arthritis with rheumatoid factor, unspecified C Reactive Protein 3 Months M05.9 - Rheumatoid arthritis with rheumatoid factor , unspecified Comprehensive Met. Panel 3 Months M05.9 - Rheumatoid arthritis with rheumatoid factor, unspecified T Spot TB 3 Months M05.9 - Rheumatoid arthritis with rheumatoid factor, unspecified Protein Creatinine Ratio, Ur 3 Months M05.9 - Rheumatoid arthritis with rheumatoid factor, unspecified UA w Microscopic 3 Months M05.9 - Rheumatoid arthritis with rheumatoid factor, unspecified Coding Level of Care Code Est Pt Level 4 (08644) Complex EM visit Add On G2211 Diagnoses Seropositive rheumatoid arthritis M05.9 MCFP methotrexate user Z79.631
[2024-08-03 16:01] VITALS: BP 140/90; PULSE 98; O2SAT 98; BMI 40.3
--- OUTSIDE RECORDS SUMMARY | 2024-08-03 18:38 | XMS_ITS | Clinical Summary ---
Author Organization [facility] Address [address] [place] [address] Care Team Providers Care Supervisor Lime Name Role Phone Unavailable Primary Care Provider [...]
--- OUTSIDE RECORDS SUMMARY | 2024-08-03 18:38 | XMS_ITS | Patient Health Record ---
Author Organization [facility] Address [address], [place] [id number] Care Team Providers Care Accounting Manager Controller Name Role Phone [facility] Primary Care Provider Emma Castillo Unavailable Allergies [...] W/U Status Risk Notes Problem Morbid obesity (198342796) Morbid (severe) obesity due to excess calories (E66.01) Active confirmed Problem Obesity due to excess calories (292674305) Other obesity due to excess calories (E66.09) Active confirmed Problem Obesity (045510739) Obesity, unspecified (E66.9) Active confirmed Problem Tobacco user (587375391) Nicotine dependence, unspecified, uncomplicated (F17.200) Active confirmed Problem Mental disorder (64793866) Mental disorder, not otherwise specified (F99) Active confirmed Problem Essential hypertension (71562278) Essential (primary) hypertension (I10) Active confirmed Problem Wheezing (11257986) Wheezing (R06.2) Active confirmed Problem Screening for malignant neoplasm of colon (592200527) Encounter for screening for malignant neoplasm of colon (Z12.11) Active confirmed Problem Screening for malignant neoplasm of breast (848153180) Encounter for screening mammogram for malignant neoplasm of breast (Z12.31) Active confirmed Problem Screening for osteoporosis (178529899) Encounter for screening for osteoporosis (Z13.820) Active confirmed Problem Hysterectomy (261023096) Acquired absence of both cervix and uterus (Z90.710) Active confirmed Problem Prediabetes (410418237) Prediabetes (R73.03) Active confirmed New Dx Plan [...] Insured Coverage Start Date Coverage End Date [facility] Plan [address] [address] [place] [address] [id number] Dorothea Tolbert Self - patient is the [...]
== END 2024-08-03 16:18 | disposition home or self-care (01) ==
LOC: HO.RHE 15:55
PROVIDERS: PCP Internal Medicine; Visit Provider Student in an Organized Health Care Education/Training Program
DX: M05.79 Rheumatoid arthritis with rheumatoid factor of multiple sites without organ or systems involvement (principal); Z79.631 Long term (current) use of antimetabolite agent
CPT/HCPCS: 99214

== ENCOUNTER → 2024-08-03 15:54 | Outpatient (BNVA) | payer OTHER, SELFPAY | PROVIDERS: PCP Internal Medicine; Visit Provider Student in an Organized Health Care Education/Training Program ==

== ENCOUNTER 2024-08-09 16:09 | Outpatient (AMB) | payer OTHER, SELFPAY ==
--- NOTE | 2024-08-09 16:15 | MHC.PC.OV ---
Vital Signs 08/09/24 16:20 Height 5 ft 5 in Weight 243 lb BMI 40.4 BP 126/82 Blood Pressure Location Lt brachial Position Sitting Intake Visit Reasons: PHYSICAL Intake Note: Patient here for a physical exam, c/o muscle aches Skid Worker Required: No Accompanied by: Self / Same As Patient Allergies ibuprofen Adverse Reaction (Severe, Verified 08/09/24 16:29) abdominal pain Uzubfeq-ZTR-GaA Reductase Inhibitor Adverse Reaction (Intermediate, Verified 08/09/24 16:29) myalgia lisinopril Adverse Reaction (Intermediate, Uncoded 08/09/24 16:29) Cough trulicity Adverse Reaction (Intermediate, Uncoded 08/09/24 16:29) knee pain Medication List - Last Reconciled 08/09/24 by Lydia Lopes MD blood sugar diagnostic (FreeStyle Lite Strips) Use 1 test strip once a day blood-glucose meter (FreeStyle Lite Meter kit) As directed folic acid 1 mg PO DAILY lancets (FreeStyle Lancets) Use 1 lancet once a day methotrexate sodium 20 mg (8 x 2.5 mg) PO QWEEK 90 days tirzepatide (Mounjaro) 7.5 mg (0.5 mL) subcut QWEEK 4 weeks tramadol 50 mg PO BID PRN 30 days Tobacco use date assessed: 05/12/24 Dental Screening Dental Screen Date: 05/12/24 HPI HPI Comments History of Present Illness Details The patient is a 59-year-old female presenting for a routine physical examination. She currently manages seropositive rheumatoid arthritis with methotrexate and follow by Rheumatology. Myalgias manifest in sore major muscles such as the calves, despite limited physical activity. Her family history reveals various critical conditions, stressing the importance of health maintenance screenings like colonoscopy, which she has yet to undergo. Her history includes correction for a clubfoot anomaly and multiple surgeries including a hysterectomy, breast reduction, carpal tunnel correction, and a section. Her hypertension is under control, and the management plan for her medications includes increasing Mounjaro dosage from 7.5 mg to 10 mg. Familial cardiovascular and oncological histories were highlighted, emphasizing a potential hereditary risk that warrants ongoing attention in future evaluations and health screenings. - Endorsed need for a colonoscopy given familial history (father with colon cancer) and age. - Recommended mammogram as part of routine health screening. - Incremental increase in Mounjaro dosage from 7.5 mg to 10 mg. - Commended for A1c level at 5.4%, which indicates controlled blood sugar levels. - Discussed allergies avoidance, particularly during budding seasons. - Reinforced the need for regular blood work to monitor overall health status. [facility] Medical History (Updated 08/09/24 @ 16:50 by Lydia Lopes MD) Thymus hyperplasia Vitiligo Personal history of nicotine dependence Asthma [id number] syndrome Family history of gastric cancer Family history of colorectal cancer Hepatitis C Surgical History History of bilateral breast reduction surgery History of hysterectomy History of clubfoot correction History of carpal tunnel surgery History of Family History Mother Diabetes CHF (congestive heart failure) Stroke Father Colon cancer Stroke Family/Other Substance use disorder Cancer Other Arthritis Social History Household Members: Family Household Members Other:: Homeless Housing: House Alcohol intake: current Alcohol intake frequency: holidays/special occasions only Alcohol type: beer and wine Patient Tobacco Use Status: Former Tobacco user Tobacco use type: Cigarette e-Cigarette/Vaping Use: Never Used Second Hand Smoke Exposure: No service: No Current occupational status: employed 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 Adam Gomez, Tessa Mendez, Freddy Enriquez and colleagues, with an educational linda from [employer]. Review of Systems Const All systems reviewed & are unremarkable except as noted in HPI and below Card Denies chest pain at rest, Denies chest pain with activity, Denies edema, Denies irregular heart rhythm, Denies claudication, Denies dyspnea, Denies dyspnea on exertion, Denies orthopnea, Denies paroxysmal nocturnal dyspnea and Denies slow heart rate Resp Denies cough, Denies dyspnea and Denies dyspnea on exertion GI Denies abdominal pain, Denies change in bowel habits, Denies excessive flatus, Denies nausea and Denies vomiting Denies urinary incontinence, Denies urinary hesitancy and Denies urinary urgency Neuro Denies lack of coordination Physical exam (Primary Care) Vital Signs: Last Vital Signs BP 126/82 08/09/24 16:20 BMI result Body Mass Index 40.4 BMI Assessment/Plan discussion: High BMI High, discussed plan: lifestyle, weight reduction, dietary and physical activity Tobacco/Smoking Status: Tobacco use Status Tobacco use date assessed 05/12/24 08/09/24 16:18 Patient Tobacco Use Status Former Tobacco user 08/09/24 16:18 Tobacco use type Cigarette 08/09/24 16:18 e-Cigarette/Vaping Use Never Used 08/09/24 16:18 Thrive Assessment: Date of Thrive Assessment Date Thrive assessed 05/12/24 08/09/24 16:18 HENMT Head: Yes normal to inspection, Yes normocephalic and Yes atraumatic Ears: external ears normal Eyes General: appearance normal, both eyes and all related structures Eyelids: Yes eyelids normal Conjunctivae: conjunctivae normal Neck Neck: Yes normal visual inspection and Yes supple Resp Effort & Inspection: normal respiratory effort Auscultation: clear to auscultation bilaterally Cardio Jugular venous distension: no JVD Rate: regular rate Rhythm: regular rhythm Heart sounds: S1 normal heart sound present and S2 normal heart sound present GI Inspection: Yes normal to inspection Palpation (GI): Soft to palpation and nontender Auscultation: normal bowel sounds Skin General skin exam: no rashes or lesions noted Neuro General: no focal motor deficits Extrem General: Yes full ROM Psych Appearance: grossly normal Results AMB Hemoglobin A1c AMB Hemoglobin A1c 5.4 % Last Edit by FAHAD Hart on 08/09/24 16:29 Results Reviewed Results Reviewed: Laboratory Last Values Hgb A1c (Clinic) 5.4 % (4.0-6.0) 08/09/24 16:15 Coding Level of Care Code Est Pt Prev Care 40-64y(34237) Diagnoses Physical exam Z00.00 Seropositive rheumatoid arthritis M05.9 Type 2 diabetes mellitus without complication, without long-term current use of insulin E11.9 Diabetes mellitus type: type 2 Diabetes mellitus [facility] insulin use: without [facility] use Diabetes mellitus complication status: without complication Morbid obesity with BMI of 40.0-44.9, adult E66.01; Z68.41 Time Spent (min) 33 Assessment & Plan Assessment & Plan (1) Physical exam: Code(s): Z00.00 - Encounter for general adult medical examination without abnormal findings Category: Medical (2) Seropositive rheumatoid arthritis: Comment: Lupus/RA overlap +CCP, ++LYDIA, low complements, arthritis, inflammatory nodules Hydroxychloroquine started 01/2024 Self DC 02/2024 due to skin rashes Code(s): M05.9 - Rheumatoid arthritis with rheumatoid factor, unspecified Category: Medical (3) Diabetes mellitus: Code(s): E11.9 - Type 2 diabetes mellitus without complications Category: Medical Qualifiers: Diabetes mellitus type: type 2 Diabetes mellitus [facility] insulin use: without joint terminal attack controller use Diabetes mellitus complication status: without complication Qualified Code(s): E11.9 - Type 2 diabetes mellitus without complications (4) Morbid obesity with BMI of 40.0-44.9, adult: Code(s): E66.01 - Morbid (severe) obesity due to excess calories; Z68.41 - Body mass index [BMI] 40.0-44.9, adult Category: Medical Plan The medical plan includes enhancing the patient's rheumatologic treatment with increasing the Mounjaro dosage, maintaining oversight with her specialist for the LYDIA positivity, and optimizing lifestyle modifications due to notable weight management success. Given her familial history, a colonoscopy becomes prudent alongside a mammogram, aligning with health care guidelines. The documentation of routine blood tests will allow us to maintain close surveillance on her systemic health while addressing her specific allergies. Discussions regarding lifestyle impacts stress the importance of her limited alcohol consumption. Overall, the plan ensures comprehensive management aiming at wellness and prevention. Patient was informed and verbally consented to the use of an ambient scribe for clinic note documentation during this visit. We discussed the necessity of maintaining proactive health monitoring through routine screenings and continuous treatment improvements, particularly with her rheumatologic symptoms. For her Mounjaro medication, we agreed on increasing the dosage to 10 mg, carefully observing responses. The importance of colonoscopy screening due to a familial predisposition to colon cancer was emphasized, and we discussed the need for regular mammograms. Throughout the consultation, consent for all suggested health interventions was obtained. We reviewed the benefits versus risks of each management strategy, confirming understanding and agreement on execution. Follow-up consists of a structured timeline for tests and evaluations, complementing a proactive health strategy. Orders: Orders AMB Hemoglobin A1c Today E11.9 - Type 2 diabetes mellitus without complications Microalbumin, Random (w Creat) 4 Months R80.9 - Proteinuria, unspecified MM tomosynthesis screening BI Today Z12.31 - Encounter for screening mammogram for malignant neoplasm of breast Lipid Panel 4 Months E78.5 - Hyperlipidemia, unspecified Comprehensive Met. Panel 4 Months Z00.00 - Encounter for general adult medical examination without abnormal findings Referrals Gastroenterology Referral Z12.11 - Encounter for screening for malignant neoplasm of colon Medications: New tirzepatide (Mounjaro) 10 mg (0.5 mL) subcut QWEEK 2 mL 0RF 4 weeks Discontinued tirzepatide (Mounjaro) Discontinued Reason: Patient Completed Course 7.5 mg (0.5 mL) subcut QWEEK 4 weeks 2 mL 0RF E11.9 - Type 2 diabetes mellitus without complications Patient Instructions: - Continue with current medications and report any adverse effects. - Schedule a mammogram and colonoscopy. - Monitor and record any changes in muscle soreness or swelling, and report them to your cadd operator. - Take note of any high-pitched sounds causing discomfort and discuss further if persistent. - Keep up with routine blood work every four months. - Limit alcohol to very occasional social events.
[2024-08-09 16:20] VITALS: BP 126/82; BMI 40.4
--- OUTSIDE RECORDS SUMMARY | 2024-08-09 18:38 | XMS_ITS | Clinical Summary ---
Author Organization [facility] Address [address] [place] [address] Care Team Providers Care Role Player Name Role Phone Unavailable Primary Care Provider [...] age to complete this topic Meningococcal B Vaccine Aged Out No l onger eligible based on patient's age to complete [...]
--- OUTSIDE RECORDS SUMMARY | 2024-08-09 18:38 | XMS_ITS | Patient Health Record ---
Author Organization [facility] Address [address], [place] [id number] Care Team Providers Care Heater Tender Name Role Phone [facility] Primary Care Provider Emma Castillo Unavailable Allergies [...] W/U Status Risk Notes Problem Morbid obesity (291338594) Morbid (severe) obesity due to excess calories (E66.01) Active confirmed Problem Obesity due to excess calories (420783330) Other obesity due to excess calories (E66.09) Active confirmed Problem Obesity (444898020) Obesity, unspecified (E66.9) Active confirmed Problem Tobacco user (758496638) Nicotine dependence, unspecified, uncomplicated (F17.200) Active confirmed Problem Mental disorder (69542431) Mental disorder, not otherwise specified (F99) Active confirmed Problem Essential hypertension (83815623) Essential (primary) hypertension (I10) Active confirmed Problem Wheezing (18305671) Wheezing (R06.2) Active confirmed Problem Screening for malignant neoplasm of colon (711651560) Encounter for screening for malignant neoplasm of colon (Z12.11) Active confirmed Problem Screening for malignant neoplasm of breast (904294709) Encounter for screening mammogram for malignant neoplasm of breast (Z12.31) Active confirmed Problem Screening for osteoporosis (327520869) Encounter for screening for osteoporosis (Z13.820) Active confirmed Problem Hysterectomy (533241227) Acquired absence of both cervix and uterus (Z90.710) Active confirmed Problem Prediabetes (505671985) Prediabetes (R73.03) Active confirmed New Dx Plan [...] Insured Coverage Start Date Coverage End Date [facility] HealthNet Plan [address] [address] [place] [address] [id number] Dorothea Tolbert Self - patient is the [...]
== END 2024-08-09 16:43 | disposition home or self-care (01) ==
LOC: HO.HMCH 16:09
PROVIDERS: PCP Internal Medicine; Visit Provider Internal Medicine
DX: Z00.00 Encounter for general adult medical examination without abnormal findings (principal); M05.9 Rheumatoid arthritis with rheumatoid factor, unspecified; E11.9 Type 2 diabetes mellitus without complications; E66.01 Morbid (severe) obesity due to excess calories; Z68.41 Body mass index [BMI] 40.0-44.9, adult

== ENCOUNTER → 2024-08-09 16:09 | Outpatient (BNVA) | payer OTHER, SELFPAY | PROVIDERS: PCP Internal Medicine; Visit Provider Internal Medicine | DX: Z00.00 Encounter for general adult medical examination without abnormal findings (principal); M05.9 Rheumatoid arthritis with rheumatoid factor, unspecified; E11.9 Type 2 diabetes mellitus without complications; E66.01 Morbid (severe) obesity due to excess calories; Z68.41 Body mass index [BMI] 40.0-44.9, adult | CPT/HCPCS: 83036 ==

== ENCOUNTER → 2024-10-09 10:00 | Outpatient (BNV) | payer OTHER, SELFPAY | PROVIDERS: PCP Internal Medicine; Visit Provider Internal Medicine | DX: Z12.31 Encounter for screening mammogram for malignant neoplasm of breast (principal) | CPT/HCPCS: 77063; 77067 ==

== ENCOUNTER 2024-10-09 10:10 | Outpatient (REF) | payer OTHER, SELFPAY | END 2024-10-09 10:11 | disposition home or self-care (01) | LOC: HO.MAMMO 10:10 | PROVIDERS: PCP Internal Medicine; Visit Provider Internal Medicine | DX: Z12.31 Encounter for screening mammogram for malignant neoplasm of breast (principal) | CPT/HCPCS: 77063; 77067 ==

== ENCOUNTER 2024-10-17 19:05 | Emergency (ER) | payer OTHER, SELFPAY ==
--- NOTE | ~2024-10-17 | XR_ITS ---
CLINICAL HISTORY: cough 1 view chest x-ray Comparison: None Findings: Peribronchial thickening suggesting bronchitis. No consolidation or effusion. Heart size is normal. No acute fracture. IMPRESSION: Peribronchial thickening suggesting bronchitis. This document has been electronically signed by: Tianna Weaver MD on 10/17/2024 20:39:53
--- NOTE | 2024-10-17 19:22 | ED_ITS ---
HPI - General Adult General Chief complaint: Upper Respiratory Symptoms Stated complaint: Cough , sob , burning when cough Time Seen by Provider: 10/17/24 19:22 Source: patient Limitations: no limitations History of Present Illness ED Provider: Roxanna Reeder PA-C HPI narrative: 59-year-old female with a history of hypertension, hyperlipidemia, diabetes, asthma, osteoarthritis, rheumatoid arthritis, morbid obesity, who presents with chest tightness x1 day. Patient states she typically develops central chest tightness prior to an exacerbation of her asthma/bronchitis. Associated burning sensation, she states she can ?taste a sour taste in her mouth?. Denies tobacco use or having indigestion/GERD. Denies fever. Related Data Previous Rx's ?Medication ?Instructions ?Recorded blood sugar diagnostic (FreeStyle #100 ea 08/13/22 Lite Strips) blood-glucose meter (FreeStyle #1 ea 08/13/22 Lite Meter kit) lancets 28 gauge (FreeStyle #100 ea 08/13/22 Lancets) methotrexate sodium 2.5 mg tablet 20 mg (8 x 2.5 mg) PO QWEEK 90 07/15/24 days #104 tabs folic acid 1 mg tablet 1 mg PO DAILY #90 tabs 08/16/24 tirzepatide 10 mg/0.5 mL 10 mg (0.5 mL) subcut QWEEK 4 09/28/24 subcutaneous pen injector weeks #2 mL (Brandonuntanika) tramadol 50 mg tablet 50 mg PO BID PRN pain 30 days #15 10/01/24 tabs albuterol sulfate 90 mcg/actuation 2 puff inhalation Q4-6H PRN 10/17/24 aerosol inhaler shortness of breath or wheezing #6.7 grams amoxicillin 875 mg-potassium 1 tab PO Q12H #14 tabs 10/17/24 clavulanate 125 mg tablet prednisone 20 mg tablet 40 mg (2 x 20 mg) PO DAILY #8 tabs 10/17/24 Allergies Allergy/AdvReac Type Severity Reaction Status Date / Time ibuprofen AdvReac Severe abdominal Verified 10/17/24 20:06 pain Lthrzef-RTG-ObQ Reductase AdvReac Intermediate myalgia Verified 10/17/24 20:06 Inhibitor lisinopril AdvReac Intermediate Cough Uncoded 10/17/24 20:06 trulicity AdvReac Intermediate knee pain Uncoded 10/17/24 20:06 Review of Systems 2 Review of Systems: Yes all other systems are reviewed and are negative Constitutional: Constitutional: Denies fatigue and Denies fever(s) Cardiovascular: Cardiovascular: Reports chest pain and Denies dyspnea Respiratory: Respiratory: Reports cough, Denies dyspnea and Denies wheezing Gastrointestinal: Gastrointestinal: Denies abdominal pain, Denies nausea and Denies vomiting Endocrine: Endocrine: Denies fatigue Allergic/Immunologic: Allergic/Immunologic: Denies wheezing PMFSH Past Medical History Attestation statement: The following information was validated with the patient. 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 Family history of gastric cancer Family history of colorectal cancer Hepatitis C Surgical History History of bilateral breast reduction surgery History of hysterectomy History of clubfoot correction History of carpal tunnel surgery History of Family History Family History Mother Diabetes CHF (congestive heart failure) Stroke Father Colon cancer Stroke Family/Other Substance use disorder Cancer Other Arthritis Social History Social History Household Members: Family Household Members Other:: Homeless Housing: House Alcohol intake: current Alcohol intake frequency: holidays/special occasions only Alcohol type: beer and wine Patient Tobacco Use Status: Former Tobacco user Tobacco use type: Cigarette e-Cigarette/Vaping Use: Never Used Second Hand Smoke Exposure: No Advance Directives: No Advance Directives Information Provided: Yes service: No Current occupational status: employed 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 Current occupational exposures/hazards: No Cognitive needs: No Hearing needs: No Vision needs: Yes Physical Exam ED Vital Signs: Vital Signs - 24 hr 10/17/24 20:04 10/17/24 20:04 10/17/24 20:59 Temperature 97.9 F 97.9 F Pulse Rate 72 72 Respiratory Rate 20 20 Blood Pressure 135/82 135/82 Pulse Oximetry 97 97 96 Oxygen Delivery Method Room Air Room Air Room Air BMI result Body Mass Index 41.0 Const Other: Alert, well-appearing Orientation/consciousness: patient oriented x3 Resp Other: Nonlabored respirations lungs clear to auscultation, no wheeze Cardio Other: Normal peripheral perfusion Skin Other: Warm dry no rash Neuro General: patient oriented x3, gait normal, no focal motor deficits and CN's II- XI intact bilaterally Psych Other: Cooperative Medications Administered Discontinued Medications Generic Name Dose Route Start Last Admin Trade Name Elan PRN Reason Stop Dose Admin Al Hydroxide/Mg Hydroxide 30 ml 10/17/24 19:27 10/17/24 20:46 Magnesium Hydrox/Alum Hydrox 30 Ml Oral.Susp PO 10/17/24 19:28 Not Given ONCE ONE Albuterol/Ipratropium 3 ml 10/17/24 19:53 10/17/24 20:04 Albuterol/Iprat 2.5/0.5mg 3 Ml Ampul.Neb INHALE 10/17/24 19:54 3 ml ONCE ONE Administration Prednisone 40 mg 10/17/24 19:28 10/17/24 20:44 Prednisone 20 Mg Tablet PO 10/17/24 19:29 40 mg ONCE ONE Administration Medical Decision Making Medical Decision Making MDM Narrative: 59-year-old female with a history of hypertension, hyperlipidemia, diabetes, asthma, osteoarthritis, rheumatoid arthritis, morbid obesity, who presents with chest tightness x1 day. Patient states she typically develops central chest tightness prior to an exacerbation of her asthma/bronchitis. Associated burning sensation, she states she can ?taste a sour taste in her mouth?. Denies tobacco use or having indigestion/GERD. Denies fever. Problem: Asthma, diabetes History: Per patient I have considered the following differential diagnoses: Asthma exacerbation/bronchitis, pneumonia, viral syndrome, seasonal allergies, ACS Plan: Patient's symptoms are likely due to early bronchitis, she states she always develops the same constellation of symptoms. We will be obtaining a chest x-ray and viral panel, ordering bronchodilator protocol and giving steroid. I have also thought about atypical presentation for ACS, she has numerous risk factors for coronary artery disease, she is also having symptoms of dyspepsia, we will be adding on EKG, screening labs including a cardiac enzyme. I did offer Maalox, the patient refuses, she states ?she does not have GERD ?. Labs: No leukocytosis, not anemic, no electrolyte abnormality noted, troponin negative, viral panel negative EKG: Normal sinus rhythm, rate of 79, no ischemic changes no ectopy QTC 454 CXR: Findings: Peribronchial thickening suggesting bronchitis. No consolidation or effusion. Heart size is normal. No acute fracture. IMPRESSION: Peribronchial thickening suggesting bronchitis. I typically do not treat bronchitis with antibiotics unless the patient has COPD and is an underlying smoker, however I see in the past she has received antibiotics, I suspect due to her immunocompromised state; diabetes, RA Lab Data 10/17/24 19:38 10/17/24 19:38 Labs: Lab Results 10/17/24 Range/Units 19:38 WBC 9.8 (4.8-10.8) X10*3/uL RBC 3.67 L (4.20-5.50) X10*6/uL Hgb 12.0 (12.0-16.0) g/dl Hct 35.8 L (37.0-47.0) % MCV 97.5 (80.0-98.0) fL MCH 32.7 (27.0-33.0) pg MCHC 33.5 (31.0-35.0) g/dl RDW 13.2 (11.0-16.0) % Plt Count 242 (160-400) X10*3/uL MPV 9.2 L (9.4-12.3) fL Immature Gran % (Auto) 0.3 (0.0-0.4) % Neut % (Auto) 59.1 (45-73) % Lymph % (Auto) 31.8 (20-40) % [place] % (Auto) 6.3 (2-11) % Eos % (Auto) 2.3 (0-4) % Baso % (Auto) 0.2 (0-2) % Lymph # (Auto) 3.1 (1.2-4.9) X10*3/uL [place] # (Auto) 0.6 (0.1-1.2) X10*3/uL Eos # (Auto) 0.2 (0.0-0.4) X10*3/uL Baso # (Auto) 0.0 (0.0-0.2) X10*3/uL Abs Immat Gran (auto) 0.03 (0.00-0.03) X10*3/uL Absolute Neuts (auto) 5.8 (2.0-8.3) x10*3/uL Absolute Nucleated RBC 0.000 (0.0-0.012) X10*3/uL Nucleated RBC % (auto) 0.0 (0.0-0.2) /100WBC Sodium 143 (135-145) mmol/L Potassium 4.0 (3.3-5.1) mmol/L Chloride 109 H (96-108) mmol/L Carbon Dioxide 25 (22-29) mmol/L Anion Gap 13 (12-20) BUN 16 (9-16) mg/dL Creatinine 0.70 (0.5-1.4) mg/dL Estim Creat Clear Calc 110.4 Estimated GFR > 60 Random Glucose 92 (60-115) mg/dL Calcium 9.3 (8.4-10.2) mg/dL Magnesium 2.0 (1.6-2.6) mg/dL Total Bilirubin 0.3 (0.0-1.0) mg/dL AST 23 (5-31) U/L ALT 25 (0-31) U/L Alkaline Phosphatase 62 (39-117) U/L Troponin I High Sens < 2.7 (<3.5-17.0) ng/L Total Protein 7.0 (6.5-8.0) g/dL Albumin 4.4 (3.5-5.0) g/dL Influenza Type A (PCR) NEGATIVE (Negative) Influenza Type B (PCR) NEGATIVE (Negative) RSV RNA Qual (PCR) NEGATIVE (Negative) SARS-CoV-2 RNA (RT-PCR) NEGATIVE (Negative) Discharge Plan Discharge Clinical Impression: Bronchitis Patient Disposition: Home, Self-Care Instructions: Acute Bronchitis (ED) Additional Instructions: There were no lab abnormalities with your screening labs, including a cardiac enzymes which was negative. You were tested for influenza RSV and COVID, the viral panel was negative. There were no concerning changes on your EKG. The chest x-ray reveals early bronchitis. See home care instructions. Use the albuterol as directed, take the steroid as directed, take the Augmentin as directed, you do not require any additional medication until tomorrow morning. Sicp-ric-sztufbr Mucinex can help thin your secretions, making your cough more productive. Follow up with your primary care provider as needed. Prescriptions: New albuterol sulfate 90 mcg/actuation HFA aerosol inhaler 2 puff inhalation Q4-6H PRN (Reason: shortness of breath or wheezing) Qty: 6.7 0RF prednisone 20 mg tablet 40 mg PO DAILY Qty: 8 0RF amoxicillin-pot clavulanate 875-125 mg tablet 1 tab PO Q12H Qty: 14 0RF No Action methotrexate sodium 2.5 mg tablet 20 mg PO QWEEK 90 Days Qty: 104 1RF folic acid 1 mg tablet 1 mg PO DAILY Qty: 90 0RF Mounjaro 10 mg/0.5 mL pen injector 10 mg subcut QWEEK 28 Days Qty: 2 0RF tramadol 50 mg tablet 50 mg PO BID PRN (Reason: pain) 30 Days Qty: 15 0RF (DME) blood-glucose meter [FreeStyle Lite Meter] Kit See Rx Instructions .Route Qty: 1 0RF Rx Instructions: As directed (DME) FreeStyle Lite Strips Strip See Rx Instructions .Route Qty: 100 3RF Rx Instructions: Use 1 test strip once a day (DME) lancets [FreeStyle Lancets] 28 gauge misc See Rx Instructions .Route Qty: 100 3RF Rx Instructions: Use 1 lancet once a day Print Language: Tajik
--- NOTE | 2024-10-17 19:27 | ECG_ITS ---
Test Reason : CHEST PAIN Blood Pressure : */* mmHG Vent. Rate : 79 BPM Atrial Rate : 79 BPM P-R Int : 158 ms QRS Dur : 92 ms QT Int : 396 ms P-R-T Axes : 49 -39 7 degrees QTcB Int : 454 ms Normal sinus rhythm Left axis deviation Abnormal ECG No previous ECGs available Referred By: Roxanna Reeder Electronically Signed By: Cabrera Vera
--- OUTSIDE RECORDS SUMMARY | 2024-10-17 19:37 | XMS_ITS | Clinical Summary ---
Author Organization [facility] Address [address] [place] [address] Care Team Providers Care Electronic Bench Technician Name Role Phone Unavailable Primary Care Provider [...] - 2023-2 5 season) 2024 Influenza Vaccine (Season Ended) 2025 HIB Vaccines Aged Out No longer eligi [...]
[2024-10-17 19:55] LABS: MANUAL DIFF FLAG NO
[2024-10-17 20:00] LABS: Basophils Percent Auto 0.2 % (0-2); Eosinophils Absolute Auto 0.2 X10*3/uL (0.0-0.4); Eosinophils Percent Auto 2.3 % (0-4); Hematocrit 35.8 % (37.0-47.0); Imm Gran Abs Auto 0.03 X10*3/uL (0.00-0.03); Imm Gran Pct Auto 0.3 % (0.0-0.4); Lymphocytes Absolute Auto 3.1 X10*3/uL (1.2-4.9); Lymphocytes Percent Auto 31.8 % (20-40); Mean Corpuscular HGB Conc 33.5 g/dl (31.0-35.0); Mean Corpuscular Hemoglobin 32.7 pg (27.0-33.0); Mean Corpuscular Volume 97.5 fL (80.0-98.0); Mean Platelet Volume 9.2 fL (9.4-12.3); Monocytes Absolute Auto 0.6 X10*3/uL (0.1-1.2); Monocytes Percent Auto 6.3 % (2-11); Neutrophils Absolute Auto 5.8 x10*3/uL (2.0-8.3); Neutrophils Percent Auto 59.1 % (45-73); Platelet Count 242 X10*3/uL (160-400); Red Blood Count 3.67 X10*6/uL (4.20-5.50); Red Cell Distribution Width 13.2 % (11.0-16.0); White Blood Count 9.8 X10*3/uL (4.8-10.8)
[2024-10-17 20:04] VITALS: BP 135/82; PULSE 72; RESP 20; TEMP 36.6; O2SAT 97; BMI 41.0
[2024-10-17] MEDS: Albuterol/Iprat 2.5/0.5MG 3 ML AMPUL.NEB INHALE (20:04)
[2024-10-17 20:11] LABS: Alanine Aminotransferase 25 U/L (0-31); Albumin Level 4.4 g/dL (3.5-5.0); Alkaline Phosphatase 62 U/L (39-117); Anion Gap 13 (12-20); Aspartate Amino Transferase 23 U/L (5-31); Bilirubin Total 0.3 mg/dL (0.0-1.0); Blood Urea Nitrogen 16 mg/dL (9-16); Calcium 9.3 mg/dL (8.4-10.2); Carbon Dioxide 25 mmol/L (22-29); Chloride 109 mmol/L (96-108); Creatinine Clr Calc Pharmacy 110.4; Estimated Glomerular Filt Rate > 60; Glucose Random 92 mg/dL (60-115); Sodium 143 mmol/L (135-145)
[2024-10-17 20:24] LABS: Troponin-I High Sensitivity < 2.7 ng/L (<3.5-17.0)
[2024-10-17 20:34] LABS: Influenza A PCR NEGATIVE (Negative); Influenza B PCR NEGATIVE (Negative); Resp Syncy Virus RNA Qual PCR NEGATIVE (Negative); SARS COV2 PCR INHOUSE NEGATIVE (Negative)
[2024-10-17] MEDS: predniSONE 20 MG TABLET 40 MG PO (20:44)
[2024-10-17 20:59] VITALS: O2SAT 96
[2024-10-17 21:50] VITALS: BP 156/82; PULSE 84; RESP 20; TEMP 36.9; O2SAT 97
== END 2024-10-17 21:51 | disposition home or self-care (01) ==
PROVIDERS: Physician Assistant Medical; Emergency Provider Internal Medicine; PCP Internal Medicine
DX: J40 Bronchitis, not specified as acute or chronic (principal); R05.9 Cough, unspecified; R06.02 Shortness of breath; Z03.818 Encounter for observation for suspected exposure to other biological agents ruled out
CPT/HCPCS: 0241U; 36415; 71045; 80053; 83735; 84484; 85025; 93005; 99284; 99285

== ENCOUNTER → 2024-10-17 19:23 | Outpatient (BNV) | payer OTHER, SELFPAY | PROVIDERS: Emergency Provider Internal Medicine; PCP Internal Medicine; Visit Provider Radiology Diagnostic Radiology | DX: J98.09 Other diseases of bronchus, not elsewhere classified (principal) | CPT/HCPCS: 71045 ==

== ENCOUNTER → 2024-10-17 19:27 | Outpatient (BNV) | payer OTHER, SELFPAY | PROVIDERS: Emergency Provider Internal Medicine; PCP Internal Medicine; Visit Provider Internal Medicine Cardiovascular Disease | DX: R94.31 Abnormal electrocardiogram [ECG] [EKG] (principal); R07.9 Chest pain, unspecified | CPT/HCPCS: 93010 ==

== ENCOUNTER 2024-12-15 15:22 | Outpatient (REF) | payer OTHER, SELFPAY ==
--- OUTSIDE RECORDS SUMMARY | 2024-12-15 15:24 | XMS_ITS | Clinical Summary ---
Author Organization [facility] Address [address] [place] [address] Care Team Providers Care Manager Operations Research Name Role Phone Unavailable Primary Care Provider [...] 2) 2017 Colorectal Cancer Screening: Colonoscopy 04/07/2022 HIV Screening 04/07/2022 Hepatitis C Screening 04/07/2022 Social Influencers of Health Screening 04/07/2022 COVID-19 Vaccine (1 - 2023-2 5 season) 2024 Depression Screening 05/05/2024 Influenza Vaccine (#1) 2025 HIB Vaccines Aged Out No longer [...]
--- OUTSIDE RECORDS SUMMARY | 2024-12-15 15:24 | XMS_ITS | Patient Health Record ---
Author Organization [facility] Address [address] [place] [address], [place] [id number] Care Team Providers Care Head Of Loss Prevention Name Role Phone [facility] Primary Care Provider Emma Madison Unavailable [phone] Allergies Allergen (clinical drug ingredient) Drug/Non Drug [...] W/U Status Risk Notes Problem Morbid obesity (441679348) Morbid (severe) obesity due to excess calories (E66.01) Active confirmed Problem Obesity due to excess calories (341406090) Other obesity due to excess calories (E66.09) Active confirmed Problem Obesity (531269086) Obesity, unspecified (E66.9) Active confirmed Problem Tobacco user (757305727) Nicotine dependence, unspecified, uncomplicated (F17.200) Active confirmed Problem Mental disorder (10058252) Mental disorder, not otherwise specified (F99) Active confirmed Problem Essential hypertension (63515466) Essential (primary) hypertension (I10) Active confirmed Problem Wheezing (26310037) Wheezing (R06.2) Active confirmed Problem Screening for malignant neoplasm of colon (818212993) Encounter for screening for malignant neoplasm of colon (Z12.11) Active confirmed Problem Screening for malignant neoplasm of breast (027659914) Encounter for screening mammogram for malignant neoplasm of breast (Z12.31) Active confirmed Problem Screening for osteoporosis (123919181) Encounter for screening for osteoporosis (Z13.820) Active confirmed Problem Hysterectomy (582579736) Acquired absence of both cervix and uterus (Z90.710) Active confirmed Problem Prediabetes (484517172) Prediabetes (R73.03) Active confirmed New Dx Plan [...] Coverage Start Date Coverage End Date [facility] HealthNet Plan [address] [address] [place] [address] [id number] AuraDorothea grimm Self - patient is the insured Medical [...] 2004 Bilateral leg surgery As child Hysterectomy 2008
[2024-12-15 15:55] LABS: MANUAL DIFF FLAG NO
[2024-12-15 16:52] LABS: Hematocrit 36.1 % (37.0-47.0); Hemoglobin 12.1 g/dl (12.0-16.0); Imm Gran Abs Auto 0.01 X10*3/uL (0.00-0.03); Imm Gran Pct Auto 0.2 % (0.0-0.4); Lymphocytes Absolute Auto 2.9 X10*3/uL (1.2-4.9); Mean Corpuscular HGB Conc 33.5 g/dl (31.0-35.0); Mean Corpuscular Hemoglobin 32.4 pg (27.0-33.0); Mean Corpuscular Volume 96.5 fL (80.0-98.0); NRBC Abs Auto 0.000 X10*3/uL (0.0-0.012); NRBC Pct Auto 0.0 /100WBC (0.0-0.2); Platelet Count 253 X10*3/uL (160-400); Red Blood Count 3.74 X10*6/uL (4.20-5.50); White Blood Count 6.5 X10*3/uL (4.8-10.8)
[2024-12-15 17:22] LABS: Alanine Aminotransferase 25 U/L (0-31); Albumin Level 4.5 g/dL (3.5-5.0); Alkaline Phosphatase 61 U/L (39-117); Anion Gap 13 (12-20); Aspartate Amino Transferase 22 U/L (5-31); Blood Urea Nitrogen 21 mg/dL (9-16); Calcium 8.9 mg/dL (8.4-10.2); Carbon Dioxide 25 mmol/L (22-29); Chloride 112 mmol/L (96-108); Estimated Glomerular Filt Rate > 60; Potassium 3.5 mmol/L (3.3-5.1); Sodium 146 mmol/L (135-145); Total Protein 7.2 g/dL (6.5-8.0)
[2024-12-16 04:35] LABS: HBS Num1 28.93 mIU/mL (0-7.99); HBc Num1 0.06 S/CO (0.00-0.79); HBsAGNum1 0.43 S/CO (0.00-0.99); Hepatitis A Antibody IgM 0.13 Index (0-0.79); Hepatitis B Surface Antigen Negative (Negative); ~HepC Num1 0.09 S/CO (0.00-0.79); ~Hepatitis A Antibody IgM Nonreactive (Nonreactive); ~Hepatitis B Surface Antibody REACTIVE (Nonreactive); ~Hepatitis C Antibody Nonreactive (Nonreactive)
[2024-12-18 11:54] LABS: TS Negative Control Passed; TS Panel A 1; TS Panel B 0; TS Positive Control Passed; TSpotTB Negative (Negative)
== END 2024-12-15 15:23 | disposition home or self-care (01) ==
LOC: HO.LAB 15:22
PROVIDERS: PCP Internal Medicine; Visit Provider Student in an Organized Health Care Education/Training Program
DX: M05.9 Rheumatoid arthritis with rheumatoid factor, unspecified (principal); Z11.59 Encounter for screening for other viral diseases; Z11.1 Encounter for screening for respiratory tuberculosis
CPT/HCPCS: 36415; 80053; 85025; 85652; 86140; 86160; 86225; 86481; 86704; 86706; 86709; 86803; 87340

== ENCOUNTER 2024-12-21 08:40 | Outpatient (REF) | payer OTHER, SELFPAY ==
--- OUTSIDE RECORDS SUMMARY | 2024-12-21 09:26 | XMS_ITS | Patient Health Record ---
Author Organization [facility] Address [address], [place] [id number] Care Team Providers Care Epic Prelude Analyst Name Role Phone [facility] Primary Care Provider Emma Madison Unavailable Allergies Allergen (clinical drug ingredient) Drug/Non [...] W/U Status Risk Notes Problem Morbid obesity (763925062) Morbid (severe) obesity due to excess calories (E66.01) Active confirmed Problem Obesity due to excess calories (421666607) Other obesity due to excess calories (E66.09) Active confirmed Problem Obesity (323918414) Obesity, unspecified (E66.9) Active confirmed Problem Tobacco user (967679707) Nicotine dependence, unspecified, uncomplicated (F17.200) Active confirmed Problem Mental disorder (42524917) Mental disorder, not otherwise specified (F99) Active confirmed Problem Essential hypertension (37771184) Essential (primary) hypertension (I10) Active confirmed Problem Wheezing (47933565) Wheezing (R06.2) Active confirmed Problem Screening for malignant neoplasm of colon (531963046) Encounter for screening for malignant neoplasm of colon (Z12.11) Active confirmed Problem Screening for malignant neoplasm of breast (369101709) Encounter for screening mammogram for malignant neoplasm of breast (Z12.31) Active confirmed Problem Screening for osteoporosis (812919632) Encounter for screening for osteoporosis (Z13.820) Active confirmed Problem Hysterectomy (826551959) Acquired absence of both cervix and uterus (Z90.710) Active confirmed Problem Prediabetes (957015194) Prediabetes (R73.03) Active confirmed New Dx Plan [...] Insured Coverage Start Date Coverage End Date [facility] [place] Plan [address] [address] [place] [address] [id number] AuraDorothea grimm Self - patient is the [...]
--- OUTSIDE RECORDS SUMMARY | 2024-12-21 09:26 | XMS_ITS | Clinical Summary ---
Author Organization [facility] Address [address] [place] [address] Care Team Providers Care Solid Waste Collector Name Role Phone Unavailable Primary Care Provider [...] 2017 Zoster Vaccines (1 of 2) 2017 COVID-19 Vaccine ( - 2023-2 5 season) 2024 Depression Screening [...]
[2024-12-21 09:58] LABS: Appearance Urine Clear; Glucose Urine UA Negative (Negative); PH 6.5 (5.0-9.0); Specific Gravity - Urine 1.020 (1.005-1.025)
[2024-12-21 10:08] LABS: Alanine Aminotransferase 56 U/L (0-31); Albumin Level 4.7 g/dL (3.5-5.0); Alkaline Phosphatase 67 U/L (39-117); Anion Gap 9 (12-20); Aspartate Amino Transferase 29 U/L (5-31); Blood Urea Nitrogen 19 mg/dL (9-16); Calcium 9.3 mg/dL (8.4-10.2); Carbon Dioxide 31 mmol/L (22-29); Chloride 105 mmol/L (96-108); Cholesterol 175 mg/dL (<200); Estimated Glomerular Filt Rate > 60; HDL Cholesterol 44 mg/dL (>40); Potassium 3.9 mmol/L (3.3-5.1); Sodium 141 mmol/L (135-145); Total Protein 7.4 g/dL (6.5-8.0); Triglycerides 56 mg/dL (<150)
[2024-12-21 10:53] LABS: Total Protein Urine Random < 7 mg/dL (<12)
[2024-12-21 12:38] LABS: Microalbum/Creatinine Ratio Ur 7.0 ug/mg cr (<30)
== END 2024-12-21 08:41 | disposition home or self-care (01) ==
LOC: HO.LAB 08:40
PROVIDERS: Absent Provider Student in an Organized Health Care Education/Training Program; PCP Internal Medicine; Visit Provider Internal Medicine
DX: Z00.00 Encounter for general adult medical examination without abnormal findings (principal); M05.9 Rheumatoid arthritis with rheumatoid factor, unspecified; E78.5 Hyperlipidemia, unspecified; R80.9 Proteinuria, unspecified
CPT/HCPCS: 36415; 80053; 80061; 81001; 82043; 82570; 84156

== ENCOUNTER 2024-12-22 10:03 | Outpatient (AMB) | payer OTHER, SELFPAY ==
--- NOTE | 2024-12-22 10:05 | A.OFFVIS_ITS ---
Vital Signs 12/22/24 10:12 Height 5 ft 5 in Weight 241 lb 6.499 oz BMI 40.2 BP 140/82 H Blood Pressure Location Lt brachial Position Sitting Pulse 65 Pulse Source Pulse Oximeter Pulse Oximetry (%) 98 Oxygen Delivery Method Room Air Intake Visit Reasons: Rhupus Intake Note: Patient presents for Rhupus. Patient stated she has a nodule on upper RT wrist and she notice it on 12/21/24. Patient also stated is sore. Allergies ibuprofen Adverse Reaction (Severe, Verified 12/22/24 10:11) abdominal pain Eityiuu-SMB-NtG Reductase Inhibitor Adverse Reaction (Intermediate, Verified 12/22/24 10:11) myalgia lisinopril Adverse Reaction (Intermediate, Uncoded 10/17/24 20:06) Cough trulicity Adverse Reaction (Intermediate, Uncoded 10/17/24 20:06) knee pain Medication List - Last Reconciled 12/22/24 by Cherry Card MD albuterol sulfate 90 mcg/actuation 2 puffs inhalation Q4-6H PRN benzonatate 100 mg PO BID PRN 7 days blood sugar diagnostic (FreeStyle Lite Strips) Use 1 test strip once a day blood-glucose meter (FreeStyle Lite Meter kit) As directed fluconazole 150 mg PO Q3D 2 doses folic acid 1 mg PO DAILY lancets (FreeStyle Lancets) Use 1 lancet once a day methotrexate sodium 20 mg (8 x 2.5 mg) PO QWEEK 90 days tirzepatide (Mounjaro) 10 mg (0.5 mL) subcut QWEEK 4 weeks tramadol 50 mg PO BID PRN 30 days HPI Comments Details: Patient is a 59-year-old female with hx of vitiligo, diabetes and Rhupus (RA/Lupus overlap) here today for follow up Interval History: Patient last seen 08/03/2024 with me - On methotrexate and folic acid - doing well with improvement in her nodules, joint pain and swelling - No change made to medication Today - On methotrexate 20mg and folic acid - Continues to do well - Notes a nodule on the dorsum of the hand Rheumatologic History: RA/Lupus +CCP/+LYDIA/inflammatory nodules and arthritis Initial history by Dr. Collins: This is a 58-year-old female with history of vitiligo who was initially referred for evaluation of suspected erythema nodosum. Patient has been having bilateral knee pain associated with swelling of the knees as well as the legs and who circular swellings, erythema nodosum was suspected. Initial Comprehensive serology showed a positive LYDIA with low C3 and C4 as well as positive anti CCP antibody. She has normal CHARLEY level, She likely has an underlying autoimmune rheumatic disease, seropositive RA versus SLE or a combination of both. Prednisone taper has been quite effective for inflammatory arthritis. Patient took hydroxychloroquine for approximately 6 weeks then self-discontinued it due to a rash on her nape and left forearm. She states that the rash on the left forearm resolved after she discontinued hydroxychloroquine. 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 Family history of gastric cancer Family history of colorectal cancer Hepatitis C Surgical History History of bilateral breast reduction surgery History of hysterectomy History of clubfoot correction History of carpal tunnel surgery History of Family History Mother Diabetes CHF (congestive heart failure) Stroke Father Colon cancer Stroke Family/Other Substance use disorder Cancer Other Arthritis Social History Household Members: Family Household Members Other:: Homeless Housing: House Alcohol intake: current Alcohol intake frequency: holidays/special occasions only Alcohol type: beer and wine Patient Tobacco Use Status: Former Tobacco user Tobacco use type: Cigarette e-Cigarette/Vaping Use: Never Used Second Hand Smoke Exposure: No service: No Current occupational status: employed 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 Current occupational exposures/hazards: No Cognitive needs: No Hearing needs: No Vision needs: Yes Review of Systems Const Details: Review of Systems Constitutional: Denies fever, chills, weight loss ENT: Denies vision changes, eye pain or eye redness, dental caries, dry mouth GI: Denies nausea, vomiting, diarrhea, abdominal pain, change in BM Pulm: Denies SOB, DIOP, hemoptysis, wheezing Cards: Denies chest pain, palpitations Skin: Denies Raynaud's, rash, nail changes, photosensitivity, PATIENT ACCOUNTING REPRESENTATIVE: Denies headaches, weakness, paresthesias, recurrent falls MSK: as per HPI All other systems reviewed and are unremarkable except noted above Physical Exam Exam Exam: Vital signs reviewed Physical Examination CONSTITUITIONAL Patient alert and cooperative. Well appearing and in no apparent painful distress HEENT Conjunctiva and sclera clear. No lymphadenopathy. CHEST/RESPIRATORY SYSTEM Normal respiratory effort and able to speak in complete sentences. Clear to auscultation bilaterally. No crackles, rales, rhonchi, wheezes heard. CARDIAC SYSTEM Regular rate and rhythm. S1 and S2 heard no murmurs. Radial pulses intact bilaterally MSK Hands * Right Hand: Able to make a fist. No swelling or tenderness to palpation of these joints. * Left Hand: Able to make a fist. No swelling or tenderness to palpation of these joints. Wrists * Right Wrist: Full ROM. 70 degrees of wrist flexion, 80 degrees of wrist extension. No swelling or TTP. Nodule noted over the dorsum of the wrist * Left Wrist: Full ROM. 70 degrees of wrist flexion, 80 degrees of wrist extension. No swelling or TTP Elbows * Right Elbow: Full ROM. No swelling or TTP. No TTP of the medial and lateral epicondyles * Left Elbow: Full ROM. No swelling or TTP. No TTP of the medial and lateral epicondyles Shoulders * Right shoulder: Full ROM. No swelling noted. No TTP of the AC joint, subacromial bursa or posterior shoulder * Left shoulder: Full ROM. No swelling noted. No TTP of the AC joint, subacromial bursa or posterior shoulder Knees * Right knee: Full ROM. No swelling noted. No TTP of the knee joint lie or pes anserine bursa * Left knee: Full ROM. No swelling noted. No TTP of the knee joint lie or pes anserine bursa. * Crepitations felt bilaterally Ankles * Right ankle: Good ankle dorsiflexion and plantar flexion. No swelling. No TTP of the ankle joint * Left ankle: Good ankle dorsiflexion and plantar flexion. No swelling. No TTP of the ankle joint Feet * Right foot: Negative squeeze test * Left foot: Negative squeeze test Tender points? * No tenderness to palpation of the bilateral trapezius, supraspinatus, anterior costochondral junctions, bilateral suboccipital muscle insertions SKIN No rashes Vital Signs: Last Vital Signs Pulse 65 12/22/24 10:12 BP 140/82 H 12/22/24 10:12 Pulse Ox 98 12/22/24 10:12 Oxygen Delivery Method Room Air 12/22/24 10:12 BMI result Body Mass Index 40.2 Results Reviewed Results Reviewed: Laboratory Tests 12/15/24 12/21/24 15:51 08:58 WBC 6.5 RBC 3.74 L Hgb 12.1 Hct 36.1 L Plt Count 253 ESR 18 Sodium 141 Potassium 3.9 Chloride 105 Carbon Dioxide 31 H BUN 19 H Creatinine 0.76 AST 22 29 ALT 25 56 H C-Reactive Protein 0.31 Immunology labs 07/26/22 08/13/23 04/16/24 16:09 12:36 09:50 Rheumatoid Factor < 13.0 Cycl Citrul Peptide IgG 157 H LYDIA Screen POSITIVE A LYDIA Titer 1:160 H Complement C3 46 L 148 Complement C4 12 L 36 04/16/24 12/15/24 09:50 15:51 Double Strand DNA Ab <1 1 Complement C3 148 146 Complement C4 36 36 Infectious serologies 12/15/24 15:51 Hepatitis A IgM Ab Nonreactive Hep Bs Antigen Negative Hep Bs Antibody REACTIVE Hep B Core Total Ab Nonreactive Hepatitis C Ab (EIA) Nonreactive TB Test (T-Spot) Com Negative Assessment & Plan Assessment & Plan (1) Seropositive rheumatoid arthritis: Comment: Lupus/RA overlap +CCP, ++LYDIA, low complements, arthritis, inflammatory nodules Hydroxychloroquine started 01/2024 Self DC 02/2024 due to skin rashes Code(s): M05.9 - Rheumatoid arthritis with rheumatoid factor, unspecified Category: Medical Plan: #Seropositive RA/Lupus overlap Patient is a 59 y.o. female with seropositive rheumatoid arthritis/lupus overlap here today for follow up. Doing well on the methotrexate with improvement in her inflammatory nodules and joint pain. 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 Limit alcohol and avoid Bactrim ? Monitoring: ?CBC, BMP, LFTs every 3-4 months and hepatitis serologies as needed Plan I spent 20 minutes reviewing the record and labs, taking a history, examining the patient, discussing the treatment plan, ordering diagnostic work up and documenting in the medical record Orders: Orders Complete Blood Count Auto Diff 4 Months Z79.899 - Other exterminator helper (current) drug therapy Erythrocyte Sedimentation Rate 4 Months Z79.899 - Other custodial (current) drug therapy Comprehensive Met. Panel 4 Weeks Z79.899 - Other exterminator helper (current) drug therapy Comprehensive Met. 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
[2024-12-22 10:12] VITALS: BP 140/82; PULSE 65; O2SAT 98; BMI 40.2
--- OUTSIDE RECORDS SUMMARY | 2024-12-22 11:07 | XMS_ITS | Clinical Summary ---
Author Organization [facility] ity Address [address] [place] [address] Care Team Providers Care Home Care Attendant Name Role Phone Unavailable Primary Care Provider [...] Vaccines (1 of 2) 2017 COVID-19 Vaccine (2023-2 5 season) 2024 Depression Screening 05/05/2024 Influenza [...]
--- OUTSIDE RECORDS SUMMARY | 2024-12-22 11:07 | XMS_ITS | Patient Health Record ---
Author Organization [facility] Address [address], [place] [id number] Care Team Providers Care Soil Fertility Specialist Name Role Phone [facility] Primary Care Provider Emma Madison Unavailable Allergies [...] W/U Status Risk Notes Problem Morbid obesity (233311294) Morbid (severe) obesity due to excess calories (E66.01) Active confirmed Problem Obesity due to excess calories (521405847) Other obesity due to excess calories (E66.09) Active confirmed Problem Obesity (159756610) Obesity, unspecified (E66.9) Active confirmed Problem Tobacco user (381852432) Nicotine dependence, unspecified, uncomplicated (F17.200) Active confirmed Problem Mental disorder (79320161) Mental disorder, not otherwise specified (F99) Active confirmed Problem Essential hypertension (22642590) Essential (primary) hypertension (I10) Active confirmed Problem Wheezing (17104458) Wheezing (R06.2) Active confirmed Problem Screening for malignant neoplasm of colon (980655709) Encounter for screening for malignant neoplasm of colon (Z12.11) Active confirmed Problem Screening for malignant neoplasm of breast (187233420) Encounter for screening mammogram for malignant neoplasm of breast (Z12.31) Active confirmed Problem Screening for osteoporosis (191034854) Encounter for screening for osteoporosis (Z13.820) Active confirmed Problem Hysterectomy (054546007) Acquired absence of both cervix and uterus (Z90.710) Active confirmed Problem Prediabetes (439810183) Prediabetes (R73.03) Active confirmed New Dx Plan [...] Insured Coverage Start Date Coverage End Date [facility] HealthNet Plan [address] [address] [place] [address] [id number] AuraDorothea grimm Self - patient is the [...]
== END 2024-12-22 10:55 | disposition home or self-care (01) ==
LOC: HO.RHES 10:04
PROVIDERS: PCP Internal Medicine; Visit Provider Student in an Organized Health Care Education/Training Program
DX: M05.9 Rheumatoid arthritis with rheumatoid factor, unspecified (principal); Z79.631 Long term (current) use of antimetabolite agent
CPT/HCPCS: 99213

== ENCOUNTER 2024-12-30 17:01 | Outpatient (AMB) | payer OTHER, SELFPAY ==
[2024-12-30 17:04] VITALS: BP 106/72; PULSE 94; RESP 18; TEMP 36.2; O2SAT 98; BMI 39.6
--- NOTE | 2024-12-30 17:04 | A.OFFPC_ITS ---
Vital Signs 12/30/24 17:04 Height 5 ft 5 in Weight 238 lb 2 oz BMI 39.6 BP 106/72 Blood Pressure Location Lt brachial Position Sitting Respiration 18 Pulse 94 Pulse Source Pulse Oximeter Temp 97.1 F Temp Source Temporal Artery Scan Pulse Oximetry (%) 98 Oxygen Delivery Method Room Air Intake Visit Reasons: 4 month f/u Supervisor White Sugar Required: No Accompanied by: Self / Same As Patient Allergies ibuprofen Adverse Reaction (Severe, Verified 12/30/24 17:23) abdominal pain Kizlyxc-DTQ-OgR Reductase Inhibitor Adverse Reaction (Intermediate, Verified 12/30/24 17:23) myalgia lisinopril Adverse Reaction (Intermediate, Uncoded 12/30/24 17:23) Cough trulicity Adverse Reaction (Intermediate, Uncoded 12/30/24 17:23) knee pain Medication List - Last Reconciled 12/30/24 by Lydia Lopes MD albuterol sulfate 90 mcg/actuation 2 puffs inhalation Q4-6H PRN blood sugar diagnostic (FreeStyle Lite Strips) Use 1 test strip once a day blood-glucose meter (FreeStyle Lite Meter kit) As directed folic acid 1 mg PO DAILY lancets (FreeStyle Lancets) Use 1 lancet once a day methotrexate sodium 20 mg (8 x 2.5 mg) PO QWEEK 90 days tirzepatide (Mounjaro) 10 mg (0.5 mL) subcut QWEEK 4 weeks tramadol 50 mg PO BID PRN 30 days Tobacco use date assessed: 12/30/24 Dental Screening Dental Screen Date: 12/30/24 Did you have a dental visit in the last 12 months?: No Did you have a dental problem in the last 6 months where you did not have access to dental care?: No Was dental information given to patient?: Patient has dentist HPI HPI Comments History of Present Illness Details The patient is a 59-year-old female presenting with diabetes management. Her blood sugar levels are well-controlled, consistently below 100 mg/dL in the mornings, and she has been gradually losing weight, though she feels more weight loss is needed. She is considering increasing her medication dosage to enhance her diabetes management. The patient has seropositive rheumatoid arthritis. Methotrexate has effectively reduced swelling and managed her pain, although she experiences occasional muscle aches in major muscle groups without specific triggers. Her liver function tests showed elevated AST levels, potentially due to a recent flu infection, with a follow-up test planned. She has hyperlipidemia, with cholesterol levels not at target, and has been ad vised to modify her diet by reducing egg yolk and mayonnaise intake. Increasing egg white consumption has been recommended for better protein intake and weight management. The patient has osteoarthritis, particularly affecting her knees, which were previously swollen but have improved with treatment. 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 Family history of gastric cancer Family history of colorectal cancer Hepatitis C Surgical History History of bilateral breast reduction surgery History of hysterectomy History of clubfoot correction History of carpal tunnel surgery History of Family History Mother Diabetes CHF (congestive heart failure) Stroke Father Colon cancer Stroke Family/Other Substance use disorder Cancer Other Arthritis Social History Household Members: Family Household Members Other:: Homeless Housing: House Alcohol intake: current Alcohol intake frequency: holidays/special occasions only Alcohol type: beer and wine Patient Tobacco Use Status: Former Tobacco user Tobacco use type: Cigarette e-Cigarette/Vaping Use: Never Used Second Hand Smoke Exposure: No service: No Current occupational status: employed Current occupation: [employer] Current occupational exposures/hazards: No Cognitive needs: No Hearing needs: No Vision needs: Yes Questionnaire PHQ-9 Over the last 2 weeks, how often have you been bothered by any of the following problems? 1. Little interest or pleasure in doing things: not at all 2. Feeling down, depressed, or hopeless: not at all 3. Trouble falling or staying asleep, or sleeping too much: not at all 4. Feeling tired or having little energy: not at all 5. Poor appetite or overeating: not at all 6. Feeling bad about yourself - or that you are a failure or have let yourself or your family down: not at all 7. Trouble concentrating on things, such as reading the newspaper or watching television: not at all 8. Moving or speaking so slowly that other people could have noticed. Or the opposite - being so fidgety or restless that you have been moving around a lot more than usual: not at all 9. Thoughts that you would be better off or of hurting yourself in some way: not at all Total score: 0 Depression Screening Interpretation: Negative Depression Screening Done: Yes 25516 - PHQ-9 Billing: Yes Source: Developed by Drs. Adam Gomez, Tessa Mendez, Freddy Enriquez and colleagues, with an educational linda from [employer]. Thrive Questionnaire Date Thrive assessed: 12/30/24 I am a: Patient What is your living situation today?: I have a steady place to live Within the past 12 months, did the food you bought not last and you didn't have the money to get more?: Sometimes True Within the past 12 months, did you worry whether your food would run out before you got money to buy more?: Sometimes True Do you have trouble paying for medicines?: No Do you have trouble getting transportation to medical appointments?: No Do you have trouble paying your heating and electricity bill?: Yes Do you have trouble taking care of your child, family member or friend?: No Do you have trouble with day-to-day activities such as bathing, preparing meals, shopping, managing finances, etc.?: No Are you currently unemployed and looking for a job?: No Are you interested in more education?: No Please select the resources that you would like help with: None Currently or been in a relationship where the following occur: I choose not to answer THRIVE Score: 3 AUDIT C Alcohol Use Questionnaire (AUDIT-C) 1. How often do you have a drink containing alcohol?: Never Total Score: 0 Score Reviewed/Action Taken: No SRINI-7 AMB Questionnaire SRINI-7 Date SRINI - 7 assessed: 12/30/24 Feeling nervous, anxious, or on edge: 0 = Not at all Not being able to stop or control worryin = Not at all Worrying too much about different things: 0 = Not at all Trouble relaxin = Not at all Being so restless that it is hard to sit still: 0 = Not at all Becoming easily annoyed or irritable: 0 = Not at all Feeling afraid as if something awful might happen: 0 = Not at all Total SRINI-7 score (0-4 normal; 5-9 mild; 10-14 moderate; 15-21 severe): 0 Source: Developed by Drs. Adam Gomez, Tessa Mendez, Freddy Enriquez and colleagues, with an educational linda from [employer]. SRINI-7 Assessment Billing SRINI-7 Assessment Tool: SRINI-7 Assessment 70214 Review of Systems Const All systems reviewed & are unremarkable except as noted in HPI and below Card Denies chest pain at rest, Denies chest pain with activity, Denies edema, Denies irregular heart rhythm, Denies claudication, Denies dyspnea, Denies dyspnea on exertion, Denies orthopnea, Denies paroxysmal nocturnal dyspnea and Denies slow heart rate Resp Denies cough, Denies dyspnea and Denies dyspnea on exertion GI Denies abdominal pain, Denies change in bowel habits, Denies excessive flatus, Denies nausea and Denies vomiting Denies urinary incontinence, Denies urinary hesitancy and Denies urinary urgency Physical exam (Primary Care) Vital Signs: Last Vital Signs Temp 97.1 F 12/30/24 17:04 Pulse 94 12/30/24 17:04 Resp 18 12/30/24 17:04 BP 106/72 12/30/24 17:04 Pulse Ox 98 12/30/24 17:04 Oxygen Delivery Method Room Air 12/30/24 17:04 BMI result Body Mass Index 39.6 Tobacco/Smoking Status: Tobacco use Status Tobacco use date assessed 12/30/24 12/30/24 17:12 Patient Tobacco Use Status Former Tobacco user 12/30/24 17:12 Tobacco use type Cigarette 12/30/24 17:12 e-Cigarette/Vaping Use Never Used 12/30/24 17:12 PHQ-9: PHQ-9 Score PHQ-9: Total score 0 12/30/24 17:12 Depression Screening Interpretation: Negative Thrive Assessment: Date of Thrive Assessment Date Thrive assessed 12/30/24 12/30/24 17:12 Currently or been in a relationship where the following occur: I choose not to answer Resp Effort & Inspection: normal respiratory effort Auscultation: clear to auscultation bilaterally Cardio Jugular venous distension: no JVD Rate: regular rate Rhythm: regular rhythm Heart sounds: S1 normal heart sound present and S2 normal heart sound present Extrem General: Yes full ROM Coding Level of Care Code Est Pt Level 4 (45586) Complex EM visit Add On G2211 Diagnoses Type 2 diabetes mellitus without complication, without long-term current use of insulin E11.9 Diabetes mellitus type: type 2 Diabetes mellitus care home insulin use: without terminal gauger use Diabetes mellitus complication status: without complication Essential hypertension I10 Hyperlipidemia LDL goal <70 E78.5 Seropositive rheumatoid arthritis M05.9 Primary osteoarthritis of both knees M17.0 Osteoarthritis type: primary Additional Codes PHQ-9 - 36629 - PHQ-9 Billing: Yes ([id number]) SRINI-7 Assessment Billing - SRINI-7 Assessment Tool: SRINI-7 Assessment 69791 ([id number]) Time Spent (min) 21 Assessment & Plan Assessment & Plan (1) Diabetes mellitus: Code(s): E11.9 - Type 2 diabetes mellitus without complications Category: Medical Qualifiers: Diabetes mellitus type: type 2 Diabetes mellitus care home insulin use: without care home use Diabetes mellitus complication status: without complication Qualified Code(s): E11.9 - Type 2 diabetes mellitus without complications (2) Essential hypertension: Code(s): I10 - Essential (primary) hypertension Category: Medical (3) Hyperlipidemia LDL goal <70: Code(s): E78.5 - Hyperlipidemia, unspecified Category: Medical (4) Seropositive rheumatoid arthritis: Comment: Lupus/RA overlap +CCP, ++LYDIA, low complements, arthritis, inflammatory nodules Hydroxychloroquine started 01/2024 Self DC 02/2024 due to skin rashes Code(s): M05.9 - Rheumatoid arthritis with rheumatoid factor, unspecified Category: Medical (5) Osteoarthritis of knees, bilateral: Code(s): M17.0 - Bilateral primary osteoarthritis of knee Category: Medical Qualifiers: Osteoarthritis type: primary Qualified Code(s): M17.0 - Bilateral primary osteoarthritis of knee Plan Plan Patient was informed and verbally consented to the use of an ambient scribe for clinic note documentation during this visit. 1. Type 2 diabetes mellitus without complications E11.9 HCC 19 The patient is managing her diabetes with current medication, and her blood sugar levels are consistently below 100 mg/dL in the mornings. She is considering increasing her Mounjaro dosage from 10 mg to 12.5 mg weekly to further stabilize her blood glucose levels without causing hypoglycemia. 2. Rheumatoid arthritis with rheumatoid factor, unspecified M05.9 HCC 40 The patient is currently on methotrexate, which has effectively reduced swelling and managed her pain. She experiences occasional muscle aches, and tramadol is prescribed as needed for flare-ups. 3. Hyperlipidemia, unspecified E78.5 The patient has elevated cholesterol levels, with LDL at 120 mg/dL, and has been advised to modify her diet by reducing egg yolk and mayonnaise intake. Increasing egg white consumption is recommended for better protein intake and weight management. 4. Unspecified osteoarthritis, unspecified site M19.90 The patient has osteoarthritis, particularly affecting her knees, which were previously swollen but have improved with current treatment. She continues to work long hours in the emergency department, contributing to occasional aches and sweating. Orders: Orders Vitamin D 25-OH Total 4 Months E55.9 - Vitamin D deficiency, unspecified Lipid Panel 4 Months E78.5 - Hyperlipidemia, unspecified Microalbumin, Random (w Creat) 4 Months R80.9 - Proteinuria, unspecified Comprehensive [place]. Panel Fast 4 Months E11.9 - Type 2 diabetes mellitus without complications Medications: New tirzepatide (Mounjaro) 12.5 mg (0.5 mL) subcut QWEEK 2 mL 0RF 4 weeks E11.9 - Type 2 diabetes mellitus without complications Refilled tramadol 50 mg PO BID PRN 15 tabs 0RF pain 30 days Discontinued tirzepatide (Mounjaro) Discontinued Reason: Patient Completed Course 10 mg (0.5 mL) subcut QWEEK 4 weeks 2 mL 0RF
--- OUTSIDE RECORDS SUMMARY | 2024-12-30 17:04 | XMS_ITS | Patient Health Record ---
Author Organization [facility] Address [address], [place] [id number] Care Team Providers Care Net Washer Name Role Phone [facility] Primary Care Provider [phone] Emma Madison Unavailable [phone] Allergies Allergen (clinical drug ingredient) Drug/Non [...] W/U Status Risk Notes Problem Morbid obesity (646964141) Morbid (severe) obesity due to excess calories (E66.01) Active confirmed Problem Obesity due to excess calories (523151198) Other obesity due to excess calories (E66.09) Active confirmed Problem Obesity (732521853) Obesity, unspecified (E66.9) Active confirmed Problem Tobacco user (983050719) Nicotine dependence, unspecified, uncomplicated (F17.200) Active confirmed Problem Mental disorder (35021547) Mental disorder, not otherwise specified (F99) Active confirmed Problem Essential hypertension (93913084) Essential (primary) hypertension (I10) Active confirmed Problem Wheezing (55786797) Wheezing (R06.2) Active confirmed Problem Screening for malignant neoplasm of colon (410692359) Encounter for screening for malignant neoplasm of colon (Z12.11) Active confirmed Problem Screening for malignant neoplasm of breast (052848400) Encounter for screening mammogram for malignant neoplasm of breast (Z12.31) Active confirmed Problem Screening for osteoporosis (117961590) Encounter for screening for osteoporosis (Z13.820) Active confirmed Problem Hysterectomy (627868951) Acquired absence of both cervix and uterus (Z90.710) Active confirmed Problem Prediabetes (032674672) Prediabetes (R73.03) Active confirmed New Dx Plan [...] Insured Coverage Start Date Coverage End Date [facility] HealthNet Plan [address] [address] [place] [address] [id number] AuraDorothea grimm Self - patient is the [...]
--- OUTSIDE RECORDS SUMMARY | 2024-12-30 17:04 | XMS_ITS | Clinical Summary ---
Author Organization [facility] ity Address [address] [place] [address] Care Team Providers Care Medical Staff Manager Name Role Phone Unavailable Primary Care Provider [...]
== END 2024-12-30 17:37 | disposition home or self-care (01) ==
LOC: HO.HMCH 17:02
PROVIDERS: PCP Internal Medicine; Visit Provider Internal Medicine
DX: E11.9 Type 2 diabetes mellitus without complications (principal); I10 Essential (primary) hypertension; E78.5 Hyperlipidemia, unspecified; M05.9 Rheumatoid arthritis with rheumatoid factor, unspecified; M17.0 Bilateral primary osteoarthritis of knee

== ENCOUNTER → 2024-12-30 17:01 | Outpatient (BNVA) | payer OTHER, SELFPAY | PROVIDERS: PCP Internal Medicine; Visit Provider Internal Medicine | DX: E11.9 Type 2 diabetes mellitus without complications (principal); M05.9 Rheumatoid arthritis with rheumatoid factor, unspecified; E78.5 Hyperlipidemia, unspecified; I10 Essential (primary) hypertension; M17.0 Bilateral primary osteoarthritis of knee; E55.9 Vitamin D deficiency, unspecified; R80.9 Proteinuria, unspecified | CPT/HCPCS: 96127 ==

== ENCOUNTER 2025-01-31 16:25 | Outpatient (REF) | payer OTHER, SELFPAY ==
--- OUTSIDE RECORDS SUMMARY | 2025-01-15 17:00 | XMS_ITS ---
Author Organization [facility] Address [address] [place] [address] Care Team Providers Care Alteration Inspector Name Role Phone [facility] Primary Care Provider [phone] Emma Madison Unavailable Migration, Provider Unavailable Unavailable Allergies Allergen (clinical drug ingredient) Drug/Non Drug Allergy documented on EMR Reaction Allergy Type Onset Date Status SEASONAL ALLERGIES (uncoded) shortness of breath Allergy Active REASON FOR VISIT [facility] Encounter Medications Medication SIG (Take, Route, [...] review and pick correct strength-formula tion from Z[employer]alan options. If intended option is not shown, discontinue and re-order from Quick Search* Active Breo Ellipta 200 MCG-25 MCG/INH 1 PUFF(S) INHALED ONCE A DAY for 30 DAY(S) *Please review and pick correct strength-formula tion from Z[employer]alan options. If intended option is not shown, [...] Not-Taking Encounters Encounter Location Date Provider Diagnosis [facility] [address] [place] [address] 01/15/2025 Provider Migration Plan Of Treatment No Information Progress Notes * Dorothea SEVILLADOB:1965 ( 59 yo F)Acc No.[id number]:01/15/2025 Patient: Dorothea ARROYO Provider: :1965 A ge:59 Y S ex:Female Date:01/15/2025 Address:[address] [place] [phone] Pcp:[facility] Subjective: * Chief Complaints: * 1 . [facility] Conversion Encounter. * Medical History: * Medications: [...] *Please review and pick correct strength-formulation from twidoxspan options. If intended option is not shown, discontinue and re-order from Quick Search*, Taking Levalbuterol 45 MCG/INH AEROSOL 2 PUFF(S) INHALED EVERY 4 HOURS , Notes to Pharmacist: PRN *Please review and pick correct strength-formulation from twidoxspan options. If intended option is not shown, [...] Electronic signature of Prov ider Migration on 01/31/2025 at 06:21 PM EDT Sign off status: Pending * Provider: Date: 01/15/2025 Generated for Leanne moncada/Jie/Carrilloitting on: 01/31/2025 06:21 PM EDT
[2025-01-31 18:20] LABS: Alanine Aminotransferase 18 U/L (0-31); Albumin Level 4.8 g/dL (3.5-5.0); Alkaline Phosphatase 66 U/L (39-117); Anion Gap 15 (12-20); Aspartate Amino Transferase 19 U/L (5-31); Blood Urea Nitrogen 14 mg/dL (9-16); Calcium 9.5 mg/dL (8.4-10.2); Carbon Dioxide 25 mmol/L (22-29); Chloride 107 mmol/L (96-108); Estimated Glomerular Filt Rate > 60; Potassium 3.7 mmol/L (3.3-5.1); Sodium 143 mmol/L (135-145); Total Protein 7.6 g/dL (6.5-8.0)
--- OUTSIDE RECORDS SUMMARY | 2025-01-31 18:22 | XMS_ITS | Clinical Summary ---
Author Organization [facility] Address [address] [place] [address] Care Team Providers Care Smoking Pipe Liner Name Role Phone Unavailable Primary Care Provider [...] 2017 Zoster Vaccines (1 of 2) 2017 Depression Screening 05/05/2024 COVID-19 Vaccine (1 - 2023-2 5 season) 2025 Influenza Vaccine (#1) 2025 HIB Vaccines Aged [...]
--- OUTSIDE RECORDS SUMMARY | 2025-01-31 18:22 | XMS_ITS | Patient Health Record ---
Author Organization [facility] Address [address] [place] [address] Care Team Providers Care Bow Maker Custom Name Role Phone [facility] Primary Care Provider [phone] Emma Madison Unavailable [phone] Migration, Provider Unavailable Unavailable Allergies Allergen (clinical drug ingredient) Drug/Non Drug Allergy documented on EMR Reaction Allergy Type Onset Date Status SEASONAL ALLERGIES (uncoded) shortness of breath Allergy Active Reason [...] review and pick correct strength-formula tion from [employer] options. If intended option is not shown, discontinue and re-order from Quick Search* Active Breo Ellipta 200 MCG-25 MCG/INH 1 PUFF(S) INHALED ONCE A DAY for 30 DAY(S) *Please review and pick correct strength-formula tion from [employer] options. If intended option is not shown, [...] 1 cap(s) orally once a day Not-Taking Social History Tobacco Use: Social History Observation [...] to quit Patient counseled on the john salehs of tobacco use and advised to quit: 10/13/2017 Problems Problem Type SNOMED Code ICD Code Onset Dates Problem Status W/U Status Risk Notes Problem Morbid obesity (581242103) Morbid (severe) obesity due to excess calories (E66.01) Active confirmed Problem Obesity due to excess calories (062819103) Other obesity due to excess calories (E66.09) Active confirmed Problem Obesity (885597682) Obesity, unspecified (E66.9) Active confirmed Problem Tobacco user (394429407) Nicotine dependence, unspecified, uncomplicated (F17.200) Active confirmed Problem Mental disorder (22949017) Mental disorder, not otherwise specified (F99) Active confirmed Problem Essential hypertension (21357968) Essential (primary) hypertension (I10) Active confirmed Problem Wheezing (33759572) Wheezing (R06.2) Active confirmed Problem Screening for malignant neoplasm of colon (722513975) Encounter for screening for malignant neoplasm of colon (Z12.11) Active confirmed Problem Screening for malignant neoplasm of breast (021000451) Encounter for screening mammogram for malignant neoplasm of breast (Z12.31) Active confirmed Problem Screening for osteoporosis (902398461) Encounter for screening for osteoporosis (Z13.820) Active confirmed Problem Hysterectomy (663232063) Acquired absence of both cervix and uterus (Z90.710) Active confirmed Problem Prediabetes (196814157) Prediabetes (R73.03) Active confirmed New Dx Encounters Encounter Location Date Provider Diagnosis [address] [address] 01/15/2025 Provider Migration Plan Of Treatment Pending Test Test Name Order Date Bone mineral density (Dexa scan) 018 Mammogram-Screening 10/14/2017 EKG 10/14/2017 QUANTIFERON(R)-TB GOLD 11/12/2017 FECAL GLOBIN BY IMMUNOCHEMISTRY 02/13/20 18 Future Test Test Name Order Date HEMOGLOBIN A1c 06/19/2018 Insurance Providers Payer Name Payer Address Payer Phone Subscriber Number Group Number Insured Name Patient Relationship to Insured Coverage Start Date Coverage End Date [facility] HealthNet Plan [address] [address] [place] [id number] Dorothea Tolbert Self - patient is the [...]
== END 2025-01-31 16:26 | disposition home or self-care (01) ==
LOC: HO.LAB 16:25
PROVIDERS: PCP Internal Medicine; Visit Provider Student in an Organized Health Care Education/Training Program
DX: Z79.899 Other long term (current) drug therapy (principal)
CPT/HCPCS: 36415; 80053

== ENCOUNTER 2025-03-17 08:19 | Emergency (ER) | payer OTHER, SELFPAY ==
--- OUTSIDE RECORDS SUMMARY | 2025-01-15 16:00 | XMS_ITS ---
Author Organization [facility] Address [address] [place] [address] Care Team Providers Care Brake Assembler Name Role Phone [facility] Primary Care Provider Emma Madison Unavailable [phone] Migration, Provider Unavailable Unavailable Allergies Allergen (clinical drug ingredient) Drug/Non Drug Allergy documented on EMR Reaction Allergy Type Onset Date Status SEASONAL ALLERGIES (uncoded) shortness of breath Allergy Active [facility] Encounter Medications Medication SIG (Take, Route, Frequency, Duration) Notes Start Date End Date Status Albuterol Sulfate HFA 108 (90 Base) MCG/ACT 2 puff(s) inhaled 4 times a day prn wheezing. Must see provider for refill for 30 day(s) 8 Active Cetirizine HCl 10 MG 1 tab(s) orally once a day for 30 day(s) OTC Active Levalbuterol 45 MCG/INH 2 PUFF(S) INHALE D EVERY 4 HOURS for 30 DAY(S) PRN *Please review and pick correct strength-formula tion from [employer]an options. If intended option is not shown, discontinue and re-order from Quick Search* Active Breo Ellipta 200 MCG-25 MCG/INH 1 PUFF(S) INHALED ONCE A DAY for 30 DAY(S) *Please review and pick correct strength-formula tion from [employer]km[employer]an options. If intended option is not shown, discontinue and re-order from Quick Search* Active Nicorette 4 MG 1 GUM chewed every hour for 30 day(s) 8 Active hydroCHLOROthiazide 25 MG 1 cap(s) orally once a day for 30 day(s) 8 Active Losartan Potassium 50 MG 1 tab(s) orally once a day for 30 day(s) 8 Active Nicoderm CQ 21 MG/24HR 1 PATCH transdermally once a day for 28 days 8 Not-Taking Cartia XT 180 MG 1 cap(s) orally once a day Not-Taking Encounters Encounter Location Date Provider Diagnosis [facility] [address] [place] [address] 01/15/2025 Provider Migration Plan Of Treatment No Information Progress Notes * Dorothea SEVILLADOB:1965 ( 59 yo F)Acc No.[id number]:01/15/2025 Patient: Dorothea ARROYO Provider: :1965 A ge:59 Y S ex:Female Date:01/15/2025 Address:[address] [place] [phone] Pcp:[facility] Subjective: * Chief Complaints: * 1 . [facility]. * Medical History: * Medications: T aking Albuterol Sulfate HFA 108 (90 Base) MCG/ACT Aerosol Solution 2 puff(s) inhaled 4 times a day prn wheezing. Must see provider for refill , Taking Nicorette 4 MG Gum 1 GUM chewed every hour , Taking Breo Ellipta 200 MCG-25 MCG/INH POWDER 1 PUFF(S) INHALED ONCE A DAY , Notes to Pharmacist: *Please review and pick correct strength-formulation from [employer] options. If intended option is not shown, discontinue and re-order from Quick Search*, Taking Levalbuterol 45 MCG/INH AEROSOL 2 PUFF(S) INHALED EVERY 4 HOURS , Notes to Pharmacist: PRN *Please review and pick correct strength-formulation from [employer] options. If intended option is not shown, discontinue and re-order from Quick Search*, Taking Cetirizine HCl 10 MG Tablet 1 tab(s) orally once a day , Notes to Pharmacist: OTC, Taking Losartan Potassium 50 MG Tablet 1 tab(s) orally once a day , Taking hydroCHLOROthiazide 25 MG Tablet 1 cap(s) orally once a day , Not-Taking/PRN Cartia XT 180 MG Capsule Extended Release 24 Hour 1 cap(s) orally once a day , Not-Taking/PRN Nicoderm CQ 21 MG/24HR Patch 24 Hour 1 PATCH transdermally once a day * Allergies: S EASONAL ALLERGIES: shortness of breath - Allergy. Objective: * Vitals: Assessment: Plan: * Treatment: * Images: Billing Information: * Visit Code: * Procedure Codes: * Electronic signature of Prov ider Migration on 03/17/2025 at 09:34 AM EST Sign off status: Pending * Provider: Date: 0 01/15/2025 Generated for Leanne moncada/Jie/Carrilloitting on: 05/17/2024 09:34 AM EST
[2025-03-17 08:23] VITALS: BP 138/70; PULSE 91; RESP 16; TEMP 36.6; O2SAT 97; BMI 39.2
--- NOTE | 2025-03-17 08:48 | ED.GENADULT ---
HPI - General Adult General Chief complaint: General Medical Stated complaint: r ear pain Time Seen by Provider: 03/17/25 08:32 Source: patient, RN notes reviewed and old records reviewed Mode of arrival: ambulatory History of Present Illness ED Provider: Misty Godwin PA-C HPI narrative: 59-year-old female with a past medical history vitiligo, asthma, hepatitis-C, diabetes, HLD, HTN, presenting to the ED complaining of right ear pain x2 days. Reports recent URI symptoms with dry cough and nasal congestion which is now resolved. Denies fever, chills, drainage from ear, hearing loss, sore throat, SOB, CP Related Data Previous Rx's ?Medication ?Instructions ?Recorded blood sugar diagnostic (FreeStyle #100 ea 08/13/22 Lite Strips) blood-glucose meter (FreeStyle #1 ea 08/13/22 Lite Meter kit) lancets 28 gauge (FreeStyle #100 ea 08/13/22 Lancets) folic acid 1 mg tablet 1 mg PO DAILY #90 tabs 08/16/24 albuterol sulfate 90 mcg/actuation 2 puff inhalation Q4-6H PRN 10/17/24 aerosol inhaler shortness of breath or wheezing #6.7 grams methotrexate sodium 2.5 mg tablet 20 mg (8 x 2.5 mg) PO QWEEK 90 12/27/24 days #104 tabs tramadol 50 mg tablet 50 mg PO BID PRN pain 30 days #15 12/30/24 tabs tirzepatide 12.5 mg/0.5 mL 12.5 mg (0.5 mL) subcut QWEEK 4 02/28/25 subcutaneous pen injector weeks #2 mL (Ramon) amoxicillin 875 mg-potassium 1 tab PO BID 7 days #14 tabs 03/17/25 clavulanate 125 mg tablet fluconazole 150 mg tablet 150 mg PO Q3D 2 doses #2 tabs 03/17/25 Allergies Allergy/AdvReac Type Severity Reaction Status Date / Time ibuprofen AdvReac Severe abdominal Verified 03/17/25 08:26 pain [id number]-VTP-XaM Reductase AdvReac Intermediate myalgia Verified 03/17/25 08:26 Inhibitor lisinopril AdvReac Intermediate Cough Uncoded 12/30/24 17:23 trulicity AdvReac Intermediate knee pain Uncoded 12/30/24 17:23 Review of Systems Review of Systems: Yes all other systems are reviewed and are negative Constitutional: Constitutional: Reports as per [facility] Past Medical History Attestation statement: The following information was validated with the patient. 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 Family history of gastric cancer Family history of colorectal cancer Hepatitis C Surgical History History of bilateral breast reduction surgery History of hysterectomy History of clubfoot correction History of carpal tunnel surgery History of Family History Family History Mother Diabetes CHF (congestive heart failure) Stroke Father Colon cancer Stroke Family/Other Substance use disorder Cancer Other Arthritis Social History Social History Household Members: Family Household Members Other:: Homeless Housing: House Alcohol intake: current Alcohol intake frequency: holidays/special occasions only Alcohol type: beer and wine Patient Tobacco Use Status: Former Tobacco user Tobacco use type: Cigarette e-Cigarette/Vaping Use: Never Used Second Hand Smoke Exposure: No Advance Directives: No Advance Directives Information Provided: No service: No Current occupational status: employed 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 Current occupational exposures/hazards: No Cognitive needs: No Hearing needs: No Vision needs: Yes Physical Exam ED Vital Signs: Vital Signs - 24 hr 03/17/25 08:23 03/17/25 09:17 Temperature 97.9 F 97.9 F Pulse Rate 91 91 Respiratory Rate 16 16 Blood Pressure 138/70 138/70 Pulse Oximetry 97 97 Oxygen Delivery Method Room Air Room Air BMI result Body Mass Index 39.2 Const General: cooperative, healthy appearing and no acute distress Orientation/consciousness: patient oriented x3 Limitations: no limitations HENMT Head: Yes normal to inspection and Yes atraumatic Ears: hearing grossly normal bilaterally, external ears normal, mastoids normal, periauricular adenopathy on the right and TM abnormal erythematous on the right and with fluid behind the TM on the right General nose exam: Normal external nose present Face and sinus: Yes normal facial exam Mouth: Normal oral and palatal mucosa present and no muffled voice Throat: Yes posterior oropharynx normal, Yes tonsils normal, Yes uvula midline, No uvula laterally displaced and No uvular edema Eyes General: appearance normal, both eyes and all related structures EOM: EOMs intact bilaterally Neck Neck: Yes normal visual inspection and Yes no meningeal signs Resp Effort & Inspection: normal respiratory effort, no respiratory distress and no stridor Auscultation: clear to auscultation bilaterally and no wheezes Cardio Rate: regular rate Heart sounds: S1 normal heart sound present and S2 normal heart sound present Skin Rashes: no rashes Wounds: no wounds Neuro General: patient oriented x3, tone normal and no meningeal signs Cranial nerves: Yes CN's II-XII intact bilaterally Gait exam (Neuro): Normal gait present Extrem General: Yes normal to inspection Medical Decision Making Medical Decision Making MDM Narrative: 59-year-old female with a past medical history vitiligo, asthma, hepatitis-C, diabetes, HLD, HTN, presenting to the ED complaining of right ear pain x2 days. on exam vital signs stable, NAD, nontoxic appearing, right ear with mild tragus tenderness, TM erythematous with effusion. Mastoids WNL. Oropharynx WNL. Lungs CTA. Concern for otitis media. No evidence of otitis externa or mastoiditis or malignant otitis externa. 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 antibiotics Please refer to course for remaining clinical decision making, interpretation of labs/imaging results, and discussions with consultants and/or family members. Results discussed with patient including worrisome signs and symptoms and strict return precautions, and when to return to the emergency department. They verbalized understanding and feel safe for discharge at this time. Differential Diagnosis Differential Diagnoses: The differential diagnosis associated with the presentation includes As above Lab Data [facility] Lab Attestation statement: I reviewed the patient's lab results. External Record Review External record reviewed: Inpatient record, Office record, Outpatient record, Prior outpatient labs, Prior outpatient radiology, Primary care record and Outside ED record Tests considered The following testing was considered but not selected: As above Prescription Management I considered prescription management with: Pain Medication and Antibiotic Chronic Conditions Patient?s care impacted by: Diabetes and Hypertension Social Determinants Patient?s care significantly limited by Social Determinants of Health including: Other Social Determinant of Health Discharge Plan Discharge Clinical Impression: Otitis media Patient Disposition: Home, Self-Care Instructions: Ear Infection (ED) Additional Instructions: you have an ear infection. Augmentin as an antibiotic please take as prescribed until completion Take Tylenol and Motrin at home as needed Follow up with your primary care doctor If her symptoms persist or worsen you have drainage from ear, hearing loss or fevers return to the emergency department Prescriptions: New amoxicillin-pot clavulanate 875-125 mg tablet 1 tab PO BID 7 Days Qty: 14 0RF fluconazole 150 mg tablet 150 mg PO Q3D Qty: 2 0RF Rx Instructions: take 1 time dose. If still symptomatic in 3 days you may take 2nd dose No Action folic acid 1 mg tablet 1 mg PO DAILY Qty: 90 0RF methotrexate sodium 2.5 mg tablet 20 mg PO QWEEK 90 Days Qty: 104 1RF Mounjaro 12.5 mg/0.5 mL pen injector 12.5 mg subcut QWEEK 28 Days Qty: 2 0RF albuterol sulfate 90 mcg/actuation HFA aerosol inhaler 2 puff inhalation Q4-6H PRN (Reason: shortness of breath or wheezing) Qty: 6.7 0RF (DME) blood-glucose meter [FreeStyle Lite Meter] Kit See Rx Instructions .Route Qty: 1 0RF Rx Instructions: As directed (DME) FreeStyle Lite Strips Strip See Rx Instructions .Route Qty: 100 3RF Rx Instructions: Use 1 test strip once a day (DME) lancets [FreeStyle Lancets] 28 gauge misc See Rx Instructions .Route Qty: 100 3RF Rx Instructions: Use 1 lancet once a day tramadol 50 mg tablet 50 mg PO BID PRN (Reason: pain) 30 Days Qty: 15 0RF Referrals: Lydia Gray MD [Primary Care Provider, Internal Medicine] - 1 week Interventions: ED Discharge Assessment Last Done: 03/17/25 09:17 Discharge Date/Time: 03/17/25 09:17 Print Language: Greenlandic
[2025-03-17 09:17] VITALS: BP 138/70; PULSE 91; RESP 16; TEMP 36.6; O2SAT 97
--- OUTSIDE RECORDS SUMMARY | 2025-03-17 09:35 | XMS_ITS | Clinical Summary ---
Author Organization [facility] Address [address] [place] [address] Care Team Providers Care Foxing Painter Name Role Phone Unavailable Primary Care Provider [...] Depression Screening 05/05/2024 COVID-19 Vaccine (1 - 2024-2 6 season) 2025 Influenza Vaccine (#1) 2025 RSV Immunization Adult Patie nts (1 - 1-dose 75+ series) 2042 HIB Vaccines Aged Out No longer eligi [...]
--- OUTSIDE RECORDS SUMMARY | 2025-03-17 09:35 | XMS_ITS | Patient Health Record ---
Author Organization [facility] Address [address] [place] [address] Care Team Providers Care Sql Ssrs Ssis Developer Name Role Phone [facility] Primary Care Provider Emma Madison Unavailable Migration, Provider Unavailable Unavailable [...] review and pick correct strength-formula tion from [employer] options. If intended option is not shown, discontinue and re-order from Quick Search* Active Breo Ellipta 200 MCG-25 MCG/INH 1 PUFF(S) INHALED ONCE A DAY for 30 DAY(S) *Please review and pick correct strength-formula tion from [employer] options. If intended option is not shown, [...] W/U Status Risk Notes Problem Morbid obesity (829343907) Morbid (severe) obesity due to excess calories (E66.01) Active confirmed Problem Obesity due to excess calories (226225426) Other obesity due to excess calories (E66.09) Active confirmed Problem Obesity (687613350) Obesity, unspecified (E66.9) Active confirmed Problem Tobacco user (699376914) Nicotine dependence, unspecified, uncomplicated (F17.200) Active confirmed Problem Mental disorder (23642001) Mental disorder, not otherwise specified (F99) Active confirmed Problem Essential hypertension (56032534) Essential (primary) hypertension (I10) Active confirmed Problem Wheezing (72987923) Wheezing (R06.2) Active confirmed Problem Screening for malignant neoplasm of colon (875923097) Encounter for screening for malignant neoplasm of colon (Z12.11) Active confirmed Problem Screening for malignant neoplasm of breast (546917272) Encounter for screening mammogram for malignant neoplasm of breast (Z12.31) Active confirmed Problem Screening for osteoporosis (920305939) Encounter for screening for osteoporosis (Z13.820) Active confirmed Problem Hysterectomy (322263302) Acquired absence of both cervix and uterus (Z90.710) Active confirmed Problem Prediabetes (905685621) Prediabetes (R73.03) Active confirmed New Dx Encounters Encounter Location Date Provider Diagnosis [address] [address] 01/15/2025 Provider Migration Plan Of Treatment Pending [...] Insured Coverage Start Date Coverage End Date [facility] HealthNet Plan [address] [address] [place] [id number] Dorothea Tolbert Self - patient is the [...]
== END 2025-03-17 09:17 | disposition home or self-care (01) ==
PROVIDERS: Emergency Provider Emergency Medicine; PCP Internal Medicine
DX: H66.91 Otitis media, unspecified, right ear (principal); H92.01 Otalgia, right ear; Z87.891 Personal history of nicotine dependence
CPT/HCPCS: 99282